=== PATIENT | female | born 1955 | race Caucasian/White ===

== ENCOUNTER → 2019-05-04 | Outpatient (CLI) | payer MEDICAID, SELFPAY ==
--- NOTE | 2019-05-04 16:01 | EKG12_ITS ---
Test Reason : PRE-OP Blood Pressure : / mmHG Vent. Rate : 082 BPM Atrial Rate : 082 BPM P-R Int : 160 ms QRS Dur : 106 ms QT Int : 380 ms P-R-T Axes : 027 -81 027 degrees QTc Int : 443 ms Normal sinus rhythm Pulmonary disease pattern Left anterior fascicular block Abnormal ECG Confirmed by KAYLA CLAY ([id number]), purchase request editor KENNY PHILLIPS ([id number]) on 05/07/2019 6:09:07 AM Referred By: Jake Larson Confirmed By:KAYLA CLAY
[2019-05-04 17:05] LABS: Hematocrit 43.9 % (37-47); Hemoglobin 14.7 g/dl (12.0-15.0); Mean Corp Hgb Conc 33.5 g/gl (32-36); Mean Corpuscular Hgb 29.5 pg (27.0-32.0); Mean Platelet Vol. 10.4 fl (6.2-12.0); Platelet Count 245 K/mm3 (150-450); RBC Distribution Width SD 44.8 fl (35.1-43.9); Red Blood Count 4.99 M/mm3 (4.2-5.4); White Blood Count 5.4 K/mm3 (4.4-11.0)
[2019-05-04 17:07] LABS: Scan Indicated on CBC? Y/N NO
[2019-05-04 17:44] LABS: Anion Gap 9 (5-15); BUN 9 mg/dL (7-18); BUN/Creat Ratio 12.8 RATIO (10-20); Calcium,Total 9.9 mg/dL (8.5-10.1); Chloride 103 mmol/L (98-107); EST Glomerular Filtration Rate 90 mL/min (>60); Est Glom Filt Rate - Afr Amer 108 mL/min (>60); Glucose 147 mg/dL (74-106); Potassium 4.2 mmol/L (3.5-5.1); Sodium Level 136 mmol/L (136-145)
== END | disposition home or self-care (01) ==
PROVIDERS: Family Provider Nurse Practitioner Family; PCP Nurse Practitioner Family; Referring Provider Otolaryngology; Visit Provider Otolaryngology
DX: Z01.818 Encounter for other preprocedural examination (principal)
CPT/HCPCS: 36415; 80048; 85027; 93005

== ENCOUNTER 2019-05-10 15:17 | Outpatient (CLI) | payer MEDICAID, SELFPAY ==
[2016-02-28 08:15] VITALS: BMI 34.5
--- NOTE | 2019-05-10 15:17 | LES_PTH ---
PATIENT: JUAN DIEGO TARIQ LOC: [facility] U#:[id number] AGE/SX: 63/F ROOM: RE05/10/[address]: Dr. 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 AM:christina 05/13/19 MICROSCOPIC DESCRIPTION Slides are reviewed. GROSS DESCRIPTION Received is one container labeled with the patient's name and not further designated. The specimen consists of a piece of agrawal-white soft tissue measuring 3 x 0.3 x 0.1 cm. The specimen is totally submitted in one cassette. / SJ:christina 05/12/19 TC:5 CPT: 84323
== END 2019-05-11 16:00 | disposition home or self-care (01) ==
LOC: LABSPEC 05-24 11:38
PROVIDERS: Family Provider Nurse Practitioner Family; PCP Nurse Practitioner Family; Referring Provider Otolaryngology; Visit Provider Otolaryngology
DX: D10.39 Benign neoplasm of other parts of mouth (principal)
CPT/HCPCS: 88305

== ENCOUNTER → 2020-05-31 08:37 | Outpatient (CLI) | payer OTHER, SELFPAY ==
--- NOTE | 2020-05-31 08:41 | US_ITS ---
STUDY: RENAL ULTRASOUND - COMPLETE REASON FOR EXAM: Female, 64 years old. HEMATURIA -- LOW BACK PAIN -- HX OF KIDNEY STONES TECHNIQUE: Ultrasound evaluation of the kidneys was performed with real-time and static alberto-scale imaging. COMPARISON: None. FINDINGS: RIGHT KIDNEY: Normal location of the right kidney, which is normal in size. The right kidney measures 12.1 cm. There is a normal cortex of the right kidney. The renal cortex measures 1.6 cm. There is no right renal mass or cyst. There are no right renal calculi. There is moderate hydronephrosis of the right kidney. DISTAL RIGHT URETER: There is dilatation of the proximal and mid ureter. There is non-visualization of the distal right ureter. There is no demonstrated right ureterovesical junction calculus. There is a visualized right ureteral jet. LEFT KIDNEY: Normal location of the left kidney, which is normal in size. The left kidney measures 11.8 cm. There is a normal cortex of the left kidney. The renal cortex measures 2.0 cm. There is 4.8 cm cyst. There are at least 3 echogenic foci consistent with calcifications measuring 0.2 and 0.3 cm. There is no left hydronephrosis. DISTAL LEFT URETER: There is non-visualization of the distal left ureter. There is no demonstrated left ureterovesical junction calculus. There is a visualized left ureteral jet. BLADDER: The distended urinary bladder has a volume of 9 ml. There is a normal wall thickness of the distended urinary bladder. There is no demonstrated mass within the urinary bladder. There are no demonstrated bladder calculi. US/Kidney and Bladder IMPRESSION: Right hydroureteronephrosis. Left renal stones. Electronically Signed: Jesus Rodriguez MD at 19:37 EDT , Service support ,
== END ==
LOC: US 08:39
PROVIDERS: PCP Nurse Practitioner Family
DX: R31.9 Hematuria, unspecified (principal)
CPT/HCPCS: 76770

== ENCOUNTER 2020-06-02 18:50 | Emergency (ER) | payer OTHER, SELFPAY ==
[2020-06-02 18:52] VITALS: BP 173/106; PULSE 96; RESP 15; TEMP 36.4; O2SAT 100; BMI 34.7
--- NOTE | 2020-06-02 19:54 | CT_ITS ---
STUDY: CT ABDOMEN AND PELVIS WITHOUT CONTRAST REASON FOR EXAM: Female, 64 years old. RT HTDRONEPHROSIS,RT FLANK PAIN WITH KIDNEY STONE -- HX:HLD,HTN,DIABETES,KIDNEY STONES RADIATION DOSAGE (If Supplied By Facility): CTDIvol = ( 20.17 ) mGy, DLP = ( 1018.02 ) mGycm TECHNIQUE: Transaxial images were obtained from the dome of the diaphragm to the symphysis pubis without oral contrast, and without intravenous contrast. Sagittal and coronal images were reconstructed. Individualized dose optimization techniques were used for this CT. COMPARISON: None. FINDINGS: There is minor interstitial thickening in the lower lobes.. The visualized portions of the heart are within normal limits. The liver is enlarged mildly fatty infiltrated without mass or bile duct dilatation.. There are multiple calcified gallstones without evidence for testicular edema.. Normal spleen. Normal pancreas. Normal bilateral adrenal glands. There is moderate to severe right hydroureter and hydronephrosis secondary to calculus in the distal ureter proximal to the ureterovesical junction measuring approximately 6 mm in size Left kidney is not obstructed. There is a large simple cyst in the medial cortex. Normal visualized stomach. Normal small intestine. Minor diverticular changes of the sigmoid colon without evidence for acute diverticulitis The appendix is visualized and appears normal. Mild atherosclerotic changes of the aorta without evidence for aneurysm. Normal inferior vena cava. Normal retroperitoneum. Normal urinary bladder. Normal abdominal wall. Normal osseous structures. CT/Abdomen/Pelvis without Cont IMPRESSION: Moderate to severe right hydroureteronephrosis secondary to calculus in the distal ureter measuring approximately 6 mm Cholelithiasis without evidence for acute cholecystitis. Electronically Signed: Flaquito Oakes MD at 21:02 EDT , Service support ,
[2020-06-02 20:00] VITALS: BP 164/110; PULSE 86; RESP 15; TEMP 36.4; O2SAT 98
[2020-06-02 20:13] LABS: Absolute Lymphocyte Count 1.84 X10^3/uL (0.83-4.51); Absolute Neutrophil Count 3.6 X10^3/uL (2.0-7.7); Basophil# 0.05 X10^3/uL; Basophil% 0.8 % (0-1); Eosinophil# 0.17 X10^3/uL; Eosinophils% 2.8 % (0-5); Hematocrit 43.8 % (37-47); Hemoglobin 14.3 g/dL (12.0-15.0); Lymphocyte # 1.84 X10^3/ul (4.0); Mean Corp Hgb Conc 32.6 g/dL (32-36); Mean Corpuscular Hgb 29.5 pg (27.0-32.0); Mean Corpuscular Volume 90.3 fL (81-99); Mean Platelet Vol. 9.9 fl (6.2-12.0); Monocyte# 0.45 X10^3/uL; Monocyte% 7.3 % (0-10); NRBC Flagged by Analyzer 0 % (0-5); Neutrophil # 3.57 X10^3/uL (2.7-7.7); Neutrophil % 58.3 % (47-70); Platelet Count 249 K/mm3 (150-450); RBC Distribution Width CV 13.6 % (11.6-14.6); RBC Distribution Width SD 44.5 fl (35.1-43.9); Red Blood Count 4.85 M/mm3 (4.2-5.4); White Blood Count 6.1 K/mm3 (4.4-11.0)
[2020-06-02 20:19] LABS: Bacteria 0 SEEN /hpf (None Seen); Mucous, Urine 0 SEEN /hpf (<or=2+)
[2020-06-02 20:22] LABS: Color, Urine Yellow (Yellow); Glucose, Dipstick 1000 mg/dl (Normal); Ketone-Dipstick 5 mg/dl (Negative); Leukocyte Esterase-Dipstick 25 /ul (Negative); Nitrite-Dipstick Negative (Negative); Occult Blood-Urine 50 /ul (Negative); Protein-Dipstick 30 mg/dl (Negative); Urine Bilirubin Dipstick Negative (Negative); Urine Clarity Sl. Cloudy (Clear); Urine Urobilinogen Normal (Normal)
[2020-06-02 20:32] LABS: Anion Gap 7 (5-15); BUN 11 mg/dL (7-18); BUN/Creat Ratio 12.9 RATIO (10-20); Calcium,Total 9.3 mg/dL (8.5-10.1); Chloride 105 mmol/L (98-107); Creatinine, Serum 0.86 mg/dL (0.55-1.02); EST Glomerular Filtration Rate 71 mL/min (>60); Est Glom Filt Rate - Afr Amer 86 mL/min (>60); Estimated Creatinine Clearance 61.87 ml/min; Glucose 175 mg/dL (74-106); Potassium 3.7 mmol/L (3.5-5.1); Sodium Level 138 mmol/L (136-145)
[2020-06-02 21:01] LABS: Red Blood Cells-Urine 5-10 SEEN /hpf (0-5); White Blood Cells 5-10 SEEN /hpf (0-5)
[2020-06-02 21:02] LABS: Squamous Epithelial Cells - UA 5-10 SEEN /hpf (5-10)
--- NOTE | 2020-06-02 21:57 | ED.VIS.GEN ---
History of Present Illness Chief Complaint: Complaint Informant: Patient Narrative: Patient is a 64-year-old female who presents to the emergency department after abnormal outpatient ultrasound. She was told that she has hydronephrosis of her kidney. He states that this past Friday she did have right-sided flank pain that radiated into her abdomen. This did resolve this past Friday. That day she did have an outpatient ultrasound which showed the hydronephrosis. Her pain completely resolved that day and has not had any pain since. Her only current symptom is urinary frequency. Denies any hematuria or dysuria. She has not any fevers or chills. She does have a history of kidney stones in the past requiring intervention. She has not any chest pain or shortness of breath. No change in bowel habits including a diarrhea, constipation or blood in the stool. Past Medical History - Allergies and Home Meds Allergies/Adverse Reactions: Allergies No Known Allergies Allergy (Verified 06/02/20 18:55) Primary Care Physician: Flako Lassiter MD [STAFF PHYSICIAN] - As soon as possible Jenifer Oh NP-C [Primary Care Provider] - Prior records reviewed: Yes Past Medical History: - - Nephrolithiasis Surgical History: tonsillectomy, - - D&C, Lives: Spouse/ Significant Other Smoking Status: Former smoker Alcohol: None Drugs: None - Family History Maternal Family History: Reports: Heart Disease Paternal Family History: Reports: Cancer Review of Systems All systems negative except as indicated General: Denies: Chills, Fever, Sweats Eyes: Denies: Visual changes - bilaterally, Diplopia ENT: Denies: Rhinorrhea, Sore throat Cardiovascular: Denies: Chest pain, Palpitations Respiratory: Denies: Dyspnea, Cough, Dyspnea on exertion Gastrointestinal: Denies: Abdominal pain, Nausea, Vomiting, Diarrhea, Melena, Hematochezia Genitourinary: Reports: Frequency. Denies: Dysuria, Hematuria Musculoskeletal: Denies: Back pain, Extremity Pain Skin: Denies: Rash, Wounds Neurological: Denies: Headache, Weakness, Numbness Physical Exam Vital Signs/Narrative: Vital Signs Temp Pulse Resp BP Pulse Ox 06/02/20 20:00 97.6 F L 86 15 164/110 H 98 06/02/20 18:52 97.6 F L 96 15 173/106 H 100 Inital Vital Signs reviewed: Yes General: Well nourished, Well developed, No Acute Distress Head: Normocephalic, Atraumatic Eyes: Perrl, EOMI ENT: Moist mucous membranes, No rhinorrhea Neck: Supple, Nontender Cardiovascular: Regular rate, Regular rhythm, No murmurs Respiratory: No distress, CTA bilaterally, Chest nontender Abdomen: Soft, Nontender, Nondistended, Normal bowel sounds Back: Nontender, Normal Inspection. Negative for: CVA tenderness Extremities: Nontender, No edema Skin: Normal color, No rash Neurological: Alert, Oriented x3, Cranial nerves II-XII grossly intact, Normal Strength, Normal Sensation Psychological: Normal affect, Normal Mood Diagnostic/Tx/Re-eval - Medical Decision Making Patient presents the [facility] department for hydronephrosis seen on outpatient ultrasound. She did have flank pain which was initially started with a work-up for this. This pain did resolve 3 days ago. She is completely asymptomatic at this time. Upon arrival to the [facility] department vital signs within normal limits. Physical exam is completely benign. Basic lab work obtained which showed her creatinine to be within normal limits. Urinalysis did not show any evidence of infection. CT scan did show a 6 mm obstructing ureteral stone. Since the patient is having no pain and labs do not have any significant abnormality I do feel she is able to go home with urology follow-up. She does need close follow-up so I made a social media marketing analyst consult to help schedule this. She understands if she develops any other symptoms she is to return to the [facility] department immediately. ED Disposition - Plan for ED Patient: Disposition: Home or Assisted Living Diagnosis: Ureterolithiasis, Hydronephrosis Instructions: ED Kidney Stone Undescended No Symptoms Referrals: Jenifer Oh NP-C [Primary Care Provider] - Flako Lassiter MD [STAFF PHYSICIAN] - As soon as possible
[2020-06-02 22:11] VITALS: BP 133/73; PULSE 77; RESP 18; O2SAT 95
== END 2020-06-02 22:11 | disposition home or self-care (01) ==
PROVIDERS: Emergency Provider Emergency Medicine; PCP Nurse Practitioner Family
DX: N13.2 Hydronephrosis with renal and ureteral calculous obstruction (principal); R35.0 Frequency of micturition; Z87.442 Personal history of urinary calculi; Z87.891 Personal history of nicotine dependence; Z79.899 Other long term (current) drug therapy
CPT/HCPCS: 74176; 80048; 81001; 85025; 99282; A4216

== ENCOUNTER → 2020-09-04 11:08 | Outpatient (CLI) | payer OTHER, SELFPAY ==
--- NOTE | 2020-09-04 11:10 | US_ITS ---
STUDY: SUPERFICIAL ULTRASOUND - LEFT THIGH LUMP. REASON FOR EXAM: Female, 64 years old. PALPABLE LUMP ON LT THIGH TECHNIQUE: A superficial ultrasound was performed with real-time and static stearns-scale imaging. COMPARISON: None. FINDINGS: Heterogeneously hyperechoic mass in the left anterior thigh measuring 2.3 x 2.6 x 0.8 cm. US/Ext Non Vasc Limited/Soft Tiss IMPRESSION: Heterogeneously hyperechoic mass in the left anterior thigh measuring 2.3 x 2.6 x 0.8 cm. RECOMMENDATION: MRI of the left thigh with and without contrast for further evaluation. Electronically Signed: Kalyan Soriano MD at 13:41 EDT , Service support ,
== END ==
LOC: US 11:08
DX: R22.42 Localized swelling, mass and lump, left lower limb (principal)
CPT/HCPCS: 76882

== ENCOUNTER → 2020-09-21 11:17 | Outpatient (CLI) | payer OTHER, SELFPAY ==
--- NOTE | 2020-09-21 11:28 | MRI_ITS ---
STUDY: MRI LOWER EXTREMITY LEFT THIGH WITH AND WITHOUT CONTRAST REASON FOR EXAM: Painful soft tissue mass at the proximal anterior left thigh for 3 months. TECHNIQUE: Standardized fat and water weighted pulse sequences were obtained in all 3 orthogonal planes, post contrast administration. IV 20ml Dotarem was administered for the contrast portion of the examination. COMPARISON: Ultrasound images 09/04/2020. FINDINGS: There is prominence of the subcutaneous fat at the anterior aspect of the proximal thigh between the skin markers (T1 sagittal images 23, 24) suggestive of a nonencapsulated superficial lipoma. There is mild edema in the lipoma (inversion recovery sagittal image 24; T2 axial images 13, 14) with mild contrast enhancement of the edema (postcontrast T1 sagittal images 24, 25). Normal visualized quadriceps, adductor and hamstring muscles. Normal visualized femur. MRI/Lower Ext No Joint W/WO Cont IMPRESSION: Prominence of the subcutaneous fat corresponding to the skin markers suggestive of a nonencapsulated superficial lipoma with mild edema in the lipoma. Electronically Signed: Rosas Muse MD at 13:29 EDT Tel , Service support ,
[2020-09-21 11:56] LABS: CREATININE FINGERSTICK 0.6 mg/dL (0.55-1.02); EGFR FINGERSTICK > 60.0000 mL/min (>60)
== END ==
LOC: MRI 11:18
DX: R22.42 Localized swelling, mass and lump, left lower limb (principal)
CPT/HCPCS: 73720; A9575

== ENCOUNTER 2020-10-04 09:26 | Day surgery (SDC) | payer MEDICARE, SELFPAY ==
[2020-09-27 09:01] VITALS: BMI 35.5
[2020-10-04] VITALS (10 sets, daily range): BP systolic 105–157; BP diastolic 60–87; PULSE 69–86; RESP 16–18; TEMP 36.2–36.4; O2SAT 91–98; BMI 35.8
--- NOTE | 2020-10-04 05:14 | HP_ITS ---
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 Is patient in pain?: Yes (Left thigh) Pain scale (1-10): 9 Allergies No Known Allergies Allergy (Verified 09/27/20 09:02) Medications Cholecalciferol (VIT D3) [Vitamin D3] 1,000 unit PO DAILY 02/26/16 [History Confirmed 09/27/20] Lisinopril [Zestril] 40 mg PO DAILY 02/26/16 [History Confirmed 09/27/20] metFORMIN HCl [Glucophage] 1,000 mg PO BID 02/26/16 [History Confirmed 09/27/20] cycloBENZAPRine HCl [Flexeril] 5 mg PO TID PRN PRN #1 tab 02/29/16 [Rx Confirmed 09/27/20] escitalopram oxalate 20 mg tablet 20 mg PO DAILY tab 09/27/20 [History Confirmed 09/27/20] gabapentin 300 mg capsule 300 mg PO DAILY cap 09/27/20 [History Confirmed 09/27/20] glimepiride 2 mg tablet 2 mg PO ONCE tab 09/27/20 [History Confirmed 09/27/20] levothyroxine 150 mcg tablet 150 mcg PO DAILY tab 09/27/20 [History Confirmed 09/27/20] FORMERLY [facility], [facility]1983 Medical History Diarrhea (Acute) Anxiety (Acute) Depression (Acute) Numbness and tingling (Acute) Rheumatoid arthritis (Acute) Arthritis (Acute) Diabetes (Acute) Thyroid disease (Acute) Fatigue (Acute) Suprapubic pain (Acute) Bilateral lower back pain (Acute) Hyperlipemia (Chronic) HTN (hypertension) (Chronic) Type 2 diabetes mellitus (Chronic) Surgical History Hx of dilation and curettage (Acute) History of throat surgery (Acute) Hx of tonsillectomy (Acute) History of (Acute) Family History Daughter Asthma Social History (Updated 09/27/20 @ 11:[address] Jose Alfredo Nolasco MD) Smoking Status: Former smoker second hand exposure: No alcohol intake: current alcohol intake frequency: holidays/special occasions only substance use type: does not use caffeine: Yes what type of physical activity do you participate in: none frequency: does not exercise HPI HPI HPI: JUAN DIEGO TARIQ, is a 64 F who presents to the office today for HPI HPI Surgical H&P: Yes HPI: JUAN DIEGO TARIQ, is a 64 F who presents to the office today for Mass of the left thigh. The patient reports that this mass has been bothering her for at least 3 months and is getting worse. She also has a mass under the skin in the left abdominal sidewall. Patient reports sometimes the pain radiates down her leg. She says it hurts to bend over. ROS General General: Yes fatigue HEENT HEENT: No difficulty swallowing, eye injury, eye surgery, swollen glands or hoarseness Endo Endocrine: Yes thyroid disease and diabetes mellitus; no thyroid cancer, Hair loss, heat intolerance or cold intolerance Skin Skin: No rash or changing moles Breast Breast: No left breast lump, right breast lump, nipple discharge, breast pain, abnormal mammogram, abnormal US or breast enlargement Musc Musculoskeletal: Yes back problems, arthritis and rheumatoid arthritis; no gout or joint pain Cardio Cardiovascular: Yes high blood pressure; no murmur, pacemaker, heart disease, atrial fibrillation, heart attack, heart stent, palpitations, shortness of breat with exertion or chest pain Psych Psychiatric: Yes depression and anxiety; no hearing voices Resp Respiratory: No shortness of breath, No sleep apnea, No cough, No COPD, No asthma, No emphysema, No wheezing Gastro Gastrointestinal: No abdominal pain, No nausea or vomiting, Yes diarrhea, No constipation, No blood in stool, No acid reflux, No hemorrhoids, No ulcers, Yes gallbladder problem, No black,tarry stools Des Hematologic: No blood thinners, No blood disorders, No bleeding, No anemia, No blood clots Neuro Neurologic: Yes numbness, Yes tingling Exam Const General: cooperative Orientation: alert, oriented x3 Chest Breast Palpation: No nipple discharge Resp Effort & Inspection: normal respiratory effort Auscultation: clear to auscultation bilaterally Cardio Rate: regular rate Rhythm: regular rhythm Heart Sounds: no murmurs GI Inspection: non-distended Palpation: soft, nontender Musc Other: The patient has a subcutaneous Mass in the left proximal thigh which is soft and mobile. She also has a soft tissue mass in the left abdominal sidewall Assessment & Plan Problems 1. Lipoma of left thigh D17.24 2. Lipoma of abdominal wall D17.1 Plan The patient had MRI and CT scan was suggestive the leg mass is a lipoma. The patient also has a lipoma on her left abdominal sidewall. I explained the risks of removing them such as bleeding and infection the patient would like both of them removed. I advised her to have them removed in the operating room as they are fairly deep and somewhat large. Patient understands and will schedule excision in the operating room. We discussed the current risks associated with COVID-19. While it is understood that there is a community spread of COVID-19, the risk of carter COVID-19 while at [facility] ([facility]) is very low; however, the risk cannot be completely mitigated because of the community spread of the disease. We discussed in detail the risk of exposure to and/or potential harm posed by the COVID-19 virus with having a surgery/procedure at this time versus the risk of delaying the surgery/procedure. It is not possible to know either the risk of delaying the surgery or procedure or chance of getting an infection with perfect accuracy, but a joint decision was made to proceed at this time with the scheduled surgery/procedure as indicated on the consent form. Patient was notified that we will need to comply with any screening or testing [facility] wishes to perform or that surgery may be delayed for any positive results. Jose Alfredo Noalsco MD Pager: [facility] [address] [place] [address], [address] [place] [address] Office: Coding Level of Care Code Off vis,new,level 3 Diagnoses Lipoma of left thigh D17.24 Lipoma of abdominal wall D17.1 I have re-examined the patient. There are no clinical changes since date of exam.
[2020-10-04] MEDS: Lactated Ringers 1,000 ML 100 ML IV (10:07)
[2020-10-04 10:11] LABS: Bedside Glucose 213 mg/dL (70-110)
[2020-10-04] MEDS: Bupivacaine Mpf 0.5% 30 ML VIAL (10:17)
[2020-10-04] MEDS: Cefazolin 2 GM in 0.9% Normal Saline 100 ML IV (11:00)
--- NOTE | 2020-10-04 11:00 | LIP_PTH ---
PATIENT: JUAN DIEGO TARIQ [place] [facility] [id number] AGE/SX: 64/F ROOM: RE10/04/[address]: Dr. Jose Alfredo Nolasco MD : 1955 BED: DIS: 10/04/2020 SPEC #: [id number] RECD: 10/04/20 11:39 STATUS: SAMUEL LILIANA #: [id number] RENEE: 10/04/20 11:[address]: Jose Alfredo Nolasco DEPT: SURGICAL PATHOLOGY RECD BY: Suleiman Saunders ENTERED: 10/04/20 11:47 SP TYPE: LIPOMA OTHR DR: Jenifer Oh, F[facility] WINDER-[facility] Tissues: A - Soft tissues of abdomen B - Soft tissues, NOS Procedures: Surgery Specimen Level III HEADER OPERATION: Thigh and abdominal wall lipoma excision PRE-OP DIAGNOSIS: Lipoma of left thigh and abdominal wall TISSUE SUBMITTED: A - Left abdominal wall lipoma, B - Left thigh lipoma MICROSCOPIC DIAGNOSIS A. Soft tissue mass, left abdominal wall, excision: Mature adipose tissue consistent with angiolipoma. B. Soft tissue mass, left thigh, excision: Mature adipose tissue consistent with angiolipoma. AM:christina 10/05/20 MICROSCOPIC DESCRIPTION Slides are reviewed. GROSS DESCRIPTION A - Received in fixative is one container labeled with the patient's name and designated left abdominal wall lipoma. The specimen consists of multiple irregular fragments of agrawal-yellow adipose tissue that in aggregate measure 3 x 2.5 x 0.3 cm. The entire specimen is submitted in one cassette. B - Received in fixative is one container labeled with the patient's name and designated left thigh lipoma. The specimen consists of an irregular piece of yellow adipose tissue measuring 4 x 1.5 x 1 cm. The external surface is inked. Sections reveal yellow adipose cut surfaces without areas of hemorrhage, necrosis or cystic degeneration. The entire specimen is submitted in two cassettes. / SJ:christina 10/04/20 TC:1 CPT: 30857 x2
--- NOTE | 2020-10-04 11:32 | OP.PCM_ITS ---
Problem List (1) Lipoma of left thigh Status: Acute (2) Lipoma of abdominal wall Status: Acute Report of Operation Date of Procedure: 10/04/20 Pre-Operative Diagnosis: 1. Left abdominal wall lipoma. 2. Left thigh lipoma Post-Operative Diagnosis: Same Surgery/Procedure Performed:: 1. Excision of left abdominal wall lipoma. 2. Excision of left thigh lipoma Specimen's removed: 1. Left abdominal wall lipoma. 2. Left thigh lipoma Description of Procedure: Patient was brought back to the operating room and MAC anesthesia was induced. The abdomen and left thigh were prepped in the usual sterile fashion. The area overlying the left abdominal wall lipoma was anesthetized and incision was made. Hemostasis was obtained using electrocautery and hemostats were used to bluntly dissect the lipoma free. The cavity was irrigated and the incision was closed with interrupted 3-0 Vicryl sutures. The lipoma measured approximately 1.5 cm. Next the left thigh was anesthetized in the same fashion and an incision was made. Hemostats were used to bluntly dissect the lipoma free and it was delivered. It was approximately 3 cm. The cavity was irrigated and hemostasis was obtained using electrocautery. The incision was closed using interrupted 3- 0 Vicryl sutures. Both incisions were closed with Steri-Strips and bandages and the patient was taken to PACU in stable condition. - Admit VTE Documentation VTE Mechan Device Prophylaxis: SCD's
--- NOTE | 2020-10-04 11:38 | PCM.DC ---
- Discharge Diagnoses Current Active Problems: Current Active and Chronic Problems (Last Reviewed 09/27/20 @ 09:08 by Grace Bryson) Lipoma of left thigh (Acute) Lipoma of abdominal wall (Acute) You will use the following diet at home:: Regular Your food should be the consistency of: Regular Your liquids should be the consistency of: Regular/Thin Discharge Activity: Return to Normal Activity, May Shower Call your doctor if your incision/area has: Continuous Slow Oozing, Sudden Increased Bleeding, Increased Pain/ Swelling, Increased Redness, Foul Smelling Discharge, Swelling at the incision site Call your doctor if you observe: Fever of 101 or Higher Remove Dressing in (days):: 2 - Remove clear bandage in 2 days, remove steri strips in 7-10 days Cleanse incision/area with: Soap & Water Allergies/Adverse Reactions: Allergies No Known Allergies Allergy (Verified 09/28/20 13:10) Medications to take at Discharge Cholecalciferol (VIT D3) [Vitamin D3] 1,000 unit PO DAILY 02/26/16 Lisinopril [Zestril] 20 mg PO BID 02/26/16 metFORMIN HCl [Glucophage] 1,000 mg PO BID 02/26/16 cycloBENZAPRine HCl [Flexeril] 5 mg PO TID PRN PRN #1 tab 02/29/16 escitalopram oxalate 20 mg tablet 20 mg PO DAILY tab 09/27/20 gabapentin 300 mg capsule 300 mg PO TID cap 09/27/20 glimepiride 2 mg tablet 2 mg PO BID tab 09/27/20 levothyroxine 150 mcg tablet 150 mcg PO DAILY tab 09/27/20 Atorvastatin Calcium [Lipitor] 20 mg PO QHS 09/28/20 Oxycodone HCl/Acetaminophen [Percocet 5-325 mg Tablet] 1 tab PO Q6H PRN PRN 3 Days #15 tablet 10/04/20 The following prescriptions were given: Oxycodone HCl/Acetaminophen [Percocet 5-325 mg Tablet] 1 tab PO Q6H PRN PRN 3 Days #15 tablet PRN Reason: Pain Score 4-10/10 Transmission Status: Sent to [facility] Test Results: Test results from this visit will be discussed in further detail at your follow-up appointment, if applicable. Please Follow Up With: Jose Alfredo Nolasco MD When: Please call to schedule 2 week follow up appointment. [phone]
== END 2020-10-04 13:17 | disposition home or self-care (01) ==
LOC: SDC 09:28 → AC 09:29
PROVIDERS: Referring Provider Surgery; Visit Provider Surgery
PROC: (CPT 22902; principal; 2020-10-04 10:45)
DX: D17.1 Benign lipomatous neoplasm of skin and subcutaneous tissue of trunk (principal); D17.24 Benign lipomatous neoplasm of skin and subcutaneous tissue of left leg; Z20.828 Contact with and (suspected) exposure to other viral communicable diseases; E11.9 Type 2 diabetes mellitus without complications; I10 Essential (primary) hypertension; E78.5 Hyperlipidemia, unspecified; M06.9 Rheumatoid arthritis, unspecified; K58.0 Irritable bowel syndrome with diarrhea; F32.9 Major depressive disorder, single episode, unspecified; F41.9 Anxiety disorder, unspecified; Z79.84 Long term (current) use of oral hypoglycemic drugs; Z79.899 Other long term (current) drug therapy; Z78.0 Asymptomatic menopausal state; Z87.891 Personal history of nicotine dependence
CPT/HCPCS: 00400; 22902; 27327; 82962; 87426; 88304; C9803; J7120; J2405

== ENCOUNTER 2021-01-14 12:56 | Emergency (ER) | payer MEDICARE, SELFPAY ==
[2020-10-04 09:52] VITALS: BMI 35.8
[2021-01-14 12:57] VITALS: BP 162/85; PULSE 102; RESP 18; TEMP 35.8; O2SAT 97; BMI 35.5
--- NOTE | 2021-01-14 13:06 | RAD_ITS ---
STUDY: X-RAY - PELVIS REASON FOR EXAM: Female, 65 years old. FELL 6 WEEKS AGO, INCREASING LEFT HIP PAIN TECHNIQUE: One view of the pelvis was obtained. COMPARISON: None. FINDINGS: There is a non-specific bowel gas pattern. Normal visualized soft tissue structures. There is narrowing with cortical sclerosis and osteophyte formation of the sacroiliac joint consistent with degenerative osteoarthritic changes. Normal visualized bilateral superior and inferior pubic rami. Normal pubic symphysis. Normal ischial tuberosities. Normal visualized right femoral head. Normal right acetabulum. There is mild articular joint space narrowing of the right hip. Normal visualized left femoral head. There is osteoarthritic spur formation of the left acetabular rim. There is mild articular joint space narrowing of the left hip. RAD/Pelvis 1 or 2 Views IMPRESSION: Degenerative change. No visualized acute fracture. Electronically Signed: Tere Saunders MD at 14:13 EST Tel , Service support ,
--- NOTE | 2021-01-14 13:06 | RAD_ITS ---
STUDY: X-RAY - LUMBAR SPINE REASON FOR EXAM: Female, 65 years old. FELL 6 WEEKS AGO, INCREASING PAIN TECHNIQUE: 3 view(s) of the lumbar spine were obtained. COMPARISON: None FINDINGS: Normal lumbar lordosis. There is no substantial scoliosis. There is a normal alignment of the vertebrae. There is mild multilevel spondylosis. There is disc space narrowing L4-L5. There is no visualized acute loss of height or alignment. There is mild dextroscoliosis. There is partially visualized degenerative change in the left hip joint. There is atherosclerotic calcification of the abdominal aorta without a demonstrated aneurysm. RAD/Lumbar Spine 2 or 3 Views IMPRESSION: Degenerative change. No visualized acute fracture. Electronically Signed: Tere Saunders MD at 14:11 EST Tel , Service support ,
--- NOTE | 2021-01-14 13:20 | ED.VIS.GEN ---
History of Present Illness Chief Complaint: Lower Extremity Injury Informant: Patient Onset: Weeks - 6 weeks Context: Sudden Onset Timing: Continuous Quality: Pain Location: Left anterior thigh, greater trochanteric region and low back Current Severity: Mild Maximum Severity: Severe Worsened by: Movement, walking, bending Relieved by: Nothing Associated Symptoms: Knee buckling going up or down steps Narrative: Patient is a 65-year-old woman who presents with left hip pain. She thinks she has something wrong with her hip. This has been present for the past 6 weeks. She reports buckling of her knees going up or down steps. She denies bowel bladder dysfunction. She has saddle paresthesia or anesthesia. She complains of left low pain that radiates to the left greater trochanteric area and over the anterior thigh in an L3-4 dermatomal pattern. Movement increases the pain. She denies fever or chills. She is not on any immunosuppressive meds. She denies dysuria, frequency, urgency or hematuria. She denies rash. Prior similar symptoms: No Recent Illness/Hospitalization: No - Past Medical History (1) Anxiety Status: Acute (2) Arthritis Status: Acute (3) Bilateral lower back pain Status: Acute (4) Depression Status: Acute (5) Diabetes Status: Acute (6) Fatigue Status: Acute (7) Rheumatoid arthritis Status: Acute (8) Thyroid disease Status: Acute (9) HTN (hypertension) Status: Chronic (10) Hyperlipemia Status: Chronic Past Medical History - Allergies and Home Meds Allergies/Adverse Reactions: Allergies No Known Allergies Allergy (Verified 01/14/21 12:57) Primary Care Physician: [facility] Columba Tovar [Primary Care Provider] - Prior records reviewed: Yes Surgical History: tonsillectomy, - - D&C, Lives: Alone Smoking Status: Unknown if ever smoked Alcohol: None Drugs: None - Family History Maternal Family History: Family History (Last Reviewed 09/27/20 @ 09:08 by Grace Bryson) Daughter Asthma Family History: Reports: Heart Disease Paternal Family History: Family History (Last Reviewed 09/27/20 @ 09:08 by Grace Bryson) Daughter Asthma Family History: Reports: Cancer Review of Systems General: Denies: Chills, Fever, Malaise, Subjective, Sweats, Weight loss Eyes: Denies: Visual changes - bilaterally, Diplopia Cardiovascular: Denies: Chest pain, Palpitations Respiratory: Denies: Dyspnea, Cough, Dyspnea on exertion Gastrointestinal: Denies: Abdominal pain, Nausea, Vomiting, Diarrhea, Melena, Hematochezia Genitourinary: Denies: Dysuria, Hematuria, Frequency Musculoskeletal: Reports: Back pain. Denies: Myalgias, Arthralgias, Neck pain, Swelling, Extremity Pain Skin: Denies: Rash, Abscess, Abrasions, Wounds, -, - Neurological: Reports: Weakness - Left lower extremity. Denies: Parasthesia, Numbness Psych: Reports: Depression, Anxiety Endocrine: Denies: Polyuria, Polydipsia Hematologic: Denies: Easy bruising, Easy bleeding Physical Exam Vital Signs/Narrative: Vital Signs Temp Pulse Resp BP Pulse Ox 01/14/21 12:57 96.5 F L 102 H 18 162/85 H 97 Inital Vital Signs reviewed: Yes General: Well nourished, Well developed, Obese, No Acute Distress Head: Normocephalic, Atraumatic Eyes: Perrl, EOMI ENT: Moist mucous membranes, No rhinorrhea Neck: Supple, Nontender Cardiovascular: Regular rate, Regular rhythm, No murmurs Respiratory: No distress, CTA bilaterally, Chest nontender Abdomen: Soft, Nontender, Nondistended, Normal bowel sounds Back: Nontender, Normal Inspection, - - Straight leg test. Positive femoral stretch test on the left. Patella reflexes slightly diminished on the left compared to the right. Ankle is symmetric and 2-3+. There is no pain to percussion over the lumbar sacral region. Extremities: Nontender, No edema Skin: Normal color, No rash. Negative for: Cyanosis, Diaphoresis, Jaundice, No Trauma Neurological: Alert, Oriented x3, Cranial nerves II-XII grossly intact, Normal Sensation. Negative for: Normal Strength - She has weakness with 1 legged squat on the left side. Able to walk on heels and toes., Normal Gait Psychological: Normal affect, Normal Mood Diagnostic/Tx/Re-eval Chest X-Ray - ED: Read by ED Physician - Single view of the pelvis is negative for fracture, dislocation or degenerative changes., - - Three-view x-ray of the LS-spine reveals minimal calcification aorta. Aorta is normal size. There is no abnormality of the lumbar or sacral vertebral bony structures. There is no evidence of spondylolisthesis or spondylolysis. There is no significant degenerative changes noted. Disc base are eq 01/14/21 13:06 Lumbar Spine 2 or 3 Views [RAD] Stat Pelvis 1 or 2 Views [RAD] Stat - Medical Decision Making Suspect patient has an L3-L4 disc protrusion. Since she is never had x-rays obtain x-ray of the back and hip. She was medicated with IV opiate analgesia. Other causes are degenerative disc disease. Doubt discitis or osteomyelitis. Also doubt epidural abscess. Patient was reassessed at 1440. She reports marked improvement. Plan is discharge to home with prescription for Medrol Dosepak and opiate analgesia. She was instructed to follow-up with spine surgeon. She was given name of spine surgeon in [place]. ED Disposition - Plan for ED Patient: Disposition: Home or Assisted Living Diagnosis: Lumbosacral radiculopathy at L3 Instructions: ED Back Pain (Acute or Chronic) Prescriptions: MethylPREDNISolone DosePak [Medrol DosePak] 4 mg PO UD #1 box Prescription Printed Oxycodone HCl/Acetaminophen [Percocet 5/325] 1 tab PO Q6H PRN PRN 5 Days #20 tab PRN Reason: Radicular back pain Prescription Printed [facility] - Eran Rodrigues DO [STAFF PHYSICIAN] - 3-5 Days Additional Instructions: The Medrol Dosepak will make your blood sugars higher. If you are unable to urinate, lose bowel control or your left knee gives out going up or down steps return to the emergency department urgently.
[2021-01-14] MEDS: morphine 8 MG/ML Syringe IV (13:32)
[2021-01-14 15:03] VITALS: BP 137/67; PULSE 75; RESP 18; O2SAT 95
== END 2021-01-14 15:03 | disposition home or self-care (01) ==
PROVIDERS: Emergency Provider Emergency Medicine
DX: M54.17 Radiculopathy, lumbosacral region (principal); M54.5 Low back pain; E11.9 Type 2 diabetes mellitus without complications; I10 Essential (primary) hypertension; E78.5 Hyperlipidemia, unspecified; M06.9 Rheumatoid arthritis, unspecified; E07.9 Disorder of thyroid, unspecified; F32.9 Major depressive disorder, single episode, unspecified; F41.9 Anxiety disorder, unspecified; E66.9 Obesity, unspecified; Z79.84 Long term (current) use of oral hypoglycemic drugs; Z79.52 Long term (current) use of systemic steroids; Z79.899 Other long term (current) drug therapy
CPT/HCPCS: 72100; 72170; 96372; 99284; A4216

== ENCOUNTER → 2021-03-26 08:33 | Outpatient (CLI) | payer MEDICARE, SELFPAY ==
[2021-01-24 13:51] VITALS: BMI 35.8
[2021-03-26 10:16] LABS: Absolute Lymphocyte Count 1.94 X10^3/uL (0.83-4.51); Absolute Neutrophil Count 2.6 X10^3/uL (2.0-7.7); Basophil# 0.07 X10^3/uL; Basophil% 1.3 % (0-1); Eosinophil# 0.16 X10^3/uL; Eosinophils% 3.1 % (0-5); Hematocrit 43.1 % (37-47); Lymphocyte # 1.94 X10^3/ul (0.83-4.51); Lymphocyte % 37.4 % (19-41); Mean Corp Hgb Conc 32.5 g/dL (32-36); Mean Corpuscular Hgb 28.7 pg (27.0-32.0); Mean Corpuscular Volume 88.5 fL (81-99); Mean Platelet Vol. 10.5 fl (6.2-12.0); Monocyte# 0.39 X10^3/uL; Monocyte% 7.5 % (0-10); NRBC Flagged by Analyzer 0 % (0-5); Neutrophil # 2.61 X10^3/uL (2.7-7.7); Neutrophil % 50.3 % (47-70); Platelet Count 269 K/mm3 (150-450); RBC Distribution Width CV 13.9 % (11.6-14.6); RBC Distribution Width SD 44.9 fl (35.1-43.9); Red Blood Count 4.87 M/mm3 (4.2-5.4); White Blood Count 5.2 K/mm3 (4.4-11.0)
[2021-03-26 10:34] LABS: Hemoglobin A1c 6.5 % (3.8-5.6)
[2021-03-26 11:07] LABS: ALB/GLOB Ratio 1.1 RATIO (0.9-2.4); AST(SGOT) 38 U/L (15-37); Alanine Aminotransfer ALT/SGPT 58 U/L (13-56); Alkaline Phosphatase 82 U/L (45-117); Anion Gap 10 (5-15); BUN 13 mg/dL (7-18); BUN/Creat Ratio 18.2 RATIO (10-20); Calcium,Total 9.6 mg/dL (8.5-10.1); Chloride 106 mmol/L (98-107); Cholesterol 169 mg/dL (200); Creatinine, Serum 0.71 mg/dL (0.55-1.02); EST Glomerular Filtration Rate 87 mL/min (>60); Est Glom Filt Rate - Afr Amer 105 mL/min (>60); Globulin 3.7 g/dL (2.2-4.2); Glucose 110 mg/dL (74-106); High Density Lipoprotein 47 mg/dL; Potassium 3.1 mmol/L (3.5-5.1); Protein, Total 7.7 g/dL (6.4-8.2); Sodium Level 141 mmol/L (136-145); Thyroid Stim Hormone (TSH) 1.35 uIU/mL (0.358-3.74); Triglycerides 137 mg/dL; Very Low Density Lipoprotein 27 mg/dL (5-40)
[2021-03-28 17:12] LABS: Vitamin D 1,25-Dihydroxy 76.5 pg/mL (19.9-79.3)
== END ==
DX: E11.42 Type 2 diabetes mellitus with diabetic polyneuropathy (principal)
CPT/HCPCS: 36415; 80053; 80061; 82652; 83036; 84443; 85025

== ENCOUNTER → 2021-04-06 09:17 | Outpatient (CLI) | payer MEDICARE, SELFPAY ==
[2021-01-24 13:51] VITALS: BMI 35.8
== END ==
PROVIDERS: PCP Nurse Practitioner Adult Health; Referring Provider Nurse Practitioner Adult Health; Visit Provider Nurse Practitioner Adult Health
DX: E87.6 Hypokalemia (principal)
CPT/HCPCS: 36415; 84132

== ENCOUNTER 2021-05-22 14:00 | Outpatient (RCR) | payer MEDICARE, SELFPAY ==
[2021-01-24 13:51] VITALS: BMI 35.8
--- NOTE | 2021-04-03 14:42 | HP.PTEVAL_ITS ---
Patient's Visit Information JUAN DIEGO TARIQ is a 65 year old F referred to Physical Therapy by MILLY Handley with a diagnosis of Degenerative Disc Disease. Date of Evaluation: 04/02/21 Physical Therapist: Magen Lopez DPT - Visit Plan Frequency: 2x /Week Duration: 3 Weeks Plan: Pts. symptoms did not subside when doing flexion or extension based exercises, but this is something to try next session. The pt. will start aquatic therapy 2x a week for 3-4 weeks to see if her symptoms lessen. Goal is to have the patient progress her core strength, as well as general lower body strength, and increase her lumbar ROM. - Subjective Pt. is a 65 yo female who presents to the clinic with low back pain that has been occurring for 8 months and was referred from Dr. Radha Mclean. The pt. states that she has been having low back pain, as well as anterior thigh pain, but denies any N/T. Her pain is worse in the morning and is provoked by walking, sitting for long periods of time, lying on the L side and lying on her stomach, which causes pain while she sleeps. Pt. reports that occasionally her left knee dimitri while she walks. Pt. does have a past medical history of diabetes and neuropathy in the feet. The pt. states her pain was a 5/10 here at the clinic, but pain can increase up to a 8/10 when it is at its worst. She would like to get back to her every day chores such as vacuuming, putting sheets on the bed, and planting plants without pain. - Pain L Low back Pain Intensity (Out of 10): 5 Pain Intensity Range: 8 - Objective Posture: Rounded shoulders, forward head, excessive thoracic kyphosis, sits in a position to off load the L side of her body. MMT: Knee ext R 5/5, L 4/5, knee flexion B 4/5, hip ext B 3+/5 with pain, hip ABD B +3/5, DF/inversion B 5/5, eversion B 5/5, rectus abdominus too painful to assess, Transverse abdominus weak and could not palpate muscle contraction. ROM: Lumbar Flex WNL, Lumbar Ext moderate to severe loss of motion with pain, L rotation WNL with minimal pain, R rotation WNL with moderate pain, R side bending WNL, L side bending WNL with pain. Joint Assessment: Hypomobile from T6 to L1 region, TTP at L3-L5 and could not assess mobility. Palpation: TTP at L3-L5. Special Tests: L femoral nerve tension test caused burning sensation through anterior thigh. SLR and Slump test s were tested, but were inconclusive due to patients fear and reproduction of low back pain. + L Quadrant Test. Pt. presents with faulty posture, rounded shoulders and forward head. She presents with decreased lumbar extension due to pain, general LE muscle weakness, as well as pain to palpation at L3-L5. The pt. is experiencing pain that can range from a 5-8 on normal days while doing ADL's, sleeping, and walking. The pt. needs PT to address her pain, decrease her symptoms, increase her spine mobility, as well as increase her strength. - Goals Goal 1:: LTG: Pt. will be compliant and indpendent with their HEP. Goal Time Frame: 2-4 Weeks Goal 2:: LTG: Pt. will be able to tolerate vacuuming her house with pain less than a 2/10. Goal Time Frame: 2-4 Weeks Goal 3:: LTG: Pt. will be a 5/5 in knee extension strength, so she is can walk comfortably without worrying about her L knee giving out on her. Goal Time Frame: 2-4 Weeks Goal 4:: LTG: Pt. will increase her lumbar extension by 50% to tolerate walking for longer periods at a time without pain. Goal Time Frame: 2-4 Weeks - Rehabilitation Potential Physical Therapy Diagnosis: The pt. presents to the clinic with signs and symptoms of low back and anterior thigh pain consistent with a facet dysfunction and/or disc dysfunction between L3 and L5 vertebrae. The pt. is needing PT to a ddress her pain levels and increase her overall spine mobility and general muscle strength. Rehabilitation Potential: Good - Anticipated Interventions Patient/Client Instruction: Educate patient on: Condition, Plan of Care For the Purpose of:: To decrease pain, To increase ROM, To improve muscle performance and motor function, To improve ability to perform ADL's, To improve ability of physical actions for home/community/work/leisure, To improve tolerance to ADL's Therapeutic Exercise to Include: Strength training, Endurance training, Body mechanics, Postural training, In an aquatic setting, Active ROM, Dynamic Lumbar Stabilization, Cecily Exercises For the Purpose of:: To decrease pain, To increase ROM, To improve muscle performance and motor function, To improve ability to perform ADL's Thank you for the opportunity to evaluate your patient. For Medicare and Medicare HMO plans, please review the plan of care and approve it. It will need to be FAXED BACK to us at [phone] for Medicare purposes. For Medicare only, by signing this I certify the plan of care. Please let me know if there are questions or concerns regarding this plan of care. Physician Signature: Date:
== END 2021-05-22 19:00 | disposition home or self-care (01) ==
LOC: PT 14:00
PROVIDERS: Referring Provider Nurse Practitioner Adult Health; Visit Provider Nurse Practitioner Adult Health
DX: M51.36 Other intervertebral disc degeneration, lumbar region (principal)
CPT/HCPCS: 97113; 97161

== ENCOUNTER → 2021-07-11 10:37 | Outpatient (CLI) | payer MEDICARE, SELFPAY ==
[2021-01-24 13:51] VITALS: BMI 35.8
--- NOTE | 2021-07-11 10:38 | MRI_ITS ---
STUDY: MRI LUMBAR SPINE WITHOUT CONTRAST REASON FOR EXAM: Female, 65 years old. pain TECHNIQUE: Standardized fat and water weighted pulse sequences were obtained in the sagittal and axial planes. COMPARISON: X-ray 01/14/2021 FINDINGS: T12-L1: Normal endplates. Normal disc height, hydration and morphology. Normal bilateral facet joints. Normal central canal and bilateral lateral recesses. Normal bilateral intervertebral neural foramina. Normal lumbar lordosis. Mild dextroscoliosis centered at L3/L4. Normal conus medullaris that terminates at the L1/L2. L1-2: Normal endplates. Normal disc height, hydration and morphology. Normal bilateral facet joints. Normal central canal and bilateral lateral recesses. Normal bilateral intervertebral neural foramina. L2-3: Disc desiccation but no disc protrusion, spinal stenosis, neural foraminal stenosis. L3-4: Disc desiccation but no disc protrusion, spinal stenosis, or neural foraminal stenosis. L4-5: Mild broad disc protrusion produces mild spinal stenosis and mild bilateral neural foraminal stenosis. L5-S1: Normal endplates. Normal disc height, hydration and morphology. Normal bilateral facet joints. Normal central canal and bilateral lateral recesses. Normal bilateral intervertebral neural foramina. Normal visualized sacral ala. Normal visualized paraspinous soft tissue structures. MRI/Spine Lumbar (Routine) IMPRESSION: Mild degenerative disc disease at L4/L5 as described above. Electronically Signed: Caleb Wagner MD at 12:48 EDT Tel , Service support ,
== END ==
LOC: MRI 10:38
DX: M51.16 Intervertebral disc disorders with radiculopathy, lumbar region (principal)
CPT/HCPCS: 72148

== ENCOUNTER 2021-12-28 10:02 | Outpatient (CLI) | payer MEDICARE, SELFPAY ==
--- NOTE | 2021-12-28 10:03 | MRI_ITS ---
STUDY: MRI LEFT HIP REASON FOR EXAM: Pain/stiffness in left hip extending into thigh, symptoms for 2 years. TECHNIQUE: Standardized fat and water weighted pulse sequences were obtained in all 3 orthogonal planes. COMPARISON: Radiographs 11/28/2021 and MRI images 09/21/2020. FINDINGS: There is chondral thinning of the left hip (proton-density sagittal image 9). Normal acetabulum. There is a small tear of the left anterosuperior labrum (proton-density sagittal image 10). Normal femoral head. Normal femoral neck and intratrochanteric region. Normal gluteus minimus, medius and iliopsoas tendons and distal insertions. There is no trochanteric, iliopsoas or iliopectineal bursitis. Normal superior and inferior pubic rami. Normal pubic symphysis. Normal ischial tuberosity. There is low-grade partial tearing of the origin of the left hamstring tendons (inversion recovery axial images 28-30). Normal visualized iliac wing, sacroiliac joint, and sacral ala. There is a small volume of fluid in the endometrial cavity (inversion recovery coronal image 15). There is a cyst in the left kidney, not fully included in the [id number] (inversion recovery coronal images 13-15). MRI/Lower Ext Joint Only (Routine) IMPRESSION: Left hip arthrosis. Small tear of the left anterosuperior labrum. Low-grade partial tearing of the origin of the left hamstring tendons. Electronically Signed: Rosas Muse MD at 13:07 EST ,
== END 2021-12-28 23:59 | disposition short-term general hospital (02) ==
LOC: MRI 10:03
PROVIDERS: Visit Provider Orthopaedic Surgery
DX: M25.552 Pain in left hip (principal)
CPT/HCPCS: 73721

== ENCOUNTER → 2022-03-22 | Outpatient (CLI) | payer MEDICARE, SELFPAY | END | disposition home or self-care (01) | PROVIDERS: Visit Provider Nurse Practitioner Adult Health | DX: G47.00 Insomnia, unspecified (principal); G47.10 Hypersomnia, unspecified | CPT/HCPCS: 95810 ==

== ENCOUNTER → 2022-04-17 | Outpatient (CLI) | payer MEDICARE, SELFPAY ==
[2022-04-17] MEDS: Zolpidem Tartrate 5 MG Tablet PO (21:00)
== END | disposition home or self-care (01) ==
PROVIDERS: Referring Provider Nurse Practitioner Acute Care; Visit Provider Nurse Practitioner Acute Care
DX: G47.33 Obstructive sleep apnea (adult) (pediatric) (principal)
CPT/HCPCS: 95810

== ENCOUNTER → 2022-04-23 | Outpatient (CLI) | payer MEDICARE, SELFPAY ==
[2022-04-23 11:07] LABS: Absolute Lymphocyte Count 2.24 X10^3/uL (0.83-4.51); Basophil# 0.05 X10^3/uL; Basophil% 0.7 % (0-1); Eosinophil# 0.08 X10^3/uL; Eosinophils% 1.1 % (0-5); Hemoglobin 14.7 g/dL (12.0-15.0); Lymphocyte # 2.24 X10^3/ul (0.83-4.51); Lymphocyte % 32.1 % (19-41); Mean Corp Hgb Conc 33.4 g/dL (32-36); Mean Corpuscular Hgb 29.9 pg (27.0-32.0); Mean Corpuscular Volume 89.4 fL (81-99); Mean Platelet Vol. 10.2 fl (6.2-12.0); Monocyte# 0.53 X10^3/uL; Monocyte% 7.6 % (0-10); NRBC Flagged by Analyzer 0 % (0-5); Neutrophil # 4.04 X10^3/uL (2.7-7.7); Neutrophil % 58.1 % (47-70); Platelet Count 268 K/mm3 (150-450); RBC Distribution Width CV 13.7 % (11.6-14.6); RBC Distribution Width SD 44.4 fl (35.1-43.9); Red Blood Count 4.92 M/mm3 (4.2-5.4)
[2022-04-23 11:48] LABS: BUN 15 mg/dL (7-18); Creatinine, Serum 0.73 mg/dL (0.55-1.02); EST Glomerular Filtration Rate 85 mL/min (>60); Glucose 226 mg/dL (74-106)
[2022-04-23 11:49] LABS: ALB/GLOB Ratio 1.1 RATIO (0.9-2.4); AST(SGOT) 24 U/L (15-37); Alanine Aminotransfer ALT/SGPT 32 U/L (13-56); Albumin, Serum 4.1 g/dL (3.2-5.0); Alkaline Phosphatase 92 U/L (45-117); Anion Gap 8 (5-15); BUN/Creat Ratio 20.6 RATIO (10-20); Calcium,Total 9.5 mg/dL (8.5-10.1); Chloride 103 mmol/L (98-107); Cholesterol 261 mg/dL (200); Est Glom Filt Rate - Afr Amer 103 mL/min (>60); Globulin 3.7 g/dL (2.2-4.2); High Density Lipoprotein 45 mg/dL; Potassium 3.9 mmol/L (3.5-5.1); Protein, Total 7.8 g/dL (6.4-8.2); Sodium Level 136 mmol/L (136-145); Thyroid Stim Hormone (TSH) 3.19 uIU/mL (0.358-3.74); Triglycerides 272 mg/dL; Very Low Density Lipoprotein 54 mg/dL (5-40)
== END | disposition home or self-care (01) ==
LOC: LAB 09:53
PROVIDERS: Referring Provider Nurse Practitioner Adult Health; Visit Provider Nurse Practitioner Adult Health
DX: E11.42 Type 2 diabetes mellitus with diabetic polyneuropathy (principal)
CPT/HCPCS: 36415; 80053; 80061; 84443; 85025

== ENCOUNTER 2022-05-12 19:31 | Emergency (ER) | payer MEDICARE, SELFPAY ==
[2022-05-12 19:32] VITALS: BP 114/75; PULSE 107; RESP 15; TEMP 36.4; O2SAT 95; BMI 34.5
--- NOTE | 2022-05-12 19:43 | EDS_ITS ---
HPI History of Present Illness Chief Complaint: Laceration Detail of Chief Complaint: Laceration to left foot Informant: patient Narrative Narrative: Patient presents to the emergency department complaint of a laceration to her left foot that occurred prior to arrival in the emergency department. Patient states that she had a glass candle top that had broken and she thought she swept it all up and accidentally stepped on a piece of glass. She believes she remove the glass and does not feel like there is glass in her foot as she does not have much discomfort when she walks. Patient is a diabetic. She is unsure of her last tetanus shot. [facility] Medical History (Updated 05/12/22 @ 19:[address] Evelyn Chau, DO) Anxiety Arthritis Bilateral lower back pain Depression Diabetes Diarrhea Fatigue HTN (hypertension) Hyperlipemia Numbness and tingling Rheumatoid arthritis Suprapubic pain Thyroid disease Type 2 diabetes mellitus Home Medications lisinopril 20 mg PO BID 02/26/16 [History Last Taken 10/03/20] metformin 1,000 mg PO BID 02/26/16 [History Last Taken 10/03/20] escitalopram oxalate 20 mg tablet 20 mg PO BID tab 09/27/20 [History Last Taken 10/03/20] gabapentin 300 mg capsule 300 mg PO TID cap 09/27/20 [History Last Taken 10/03/20] glimepiride 2 mg tablet 2 mg PO BID tab 09/27/20 [History Last Taken 10/03/20] levothyroxine 150 mcg tablet 150 mcg PO DAILY tab 09/27/20 [History Last Taken 10/03/20] atorvastatin 20 mg PO QHS 09/28/20 [History Last Taken 10/03/20] tizanidine 4 mg tablet 4 mg PO tab 07/16/21 [History Last Taken Unknown] tramadol 50 mg tablet tablet PO 11/28/21 [History Last Taken Unknown] albuterol sulfate 90 mcg/actuation aerosol inhaler 2 puff INHALATION Q4H PRN #18 g 04/05/22 [Rx Last Taken Unknown] Allergy/AdvReac Type Severity Reaction Status Date / Time venom-honey bee Allergy Severe Anaphylaxis Verified 05/12/22 19:35 prednisone AdvReac Mild [place] out Verified 05/12/22 19:35 of it Family History Daughter Asthma Father Cancer Arthritis Mother Heart disease Arthritis Surgical History History of History of throat surgery Hx of dilation and curettage Hx of tonsillectomy Social History household members: spouse housing: house Smoking Status: Never smoker second hand exposure: No alcohol intake: current alcohol intake frequency: holidays/special occasions only substance use type: does not use caffeine: Yes what type of physical activity do you participate in: none frequency: does not exercise do you feel safe at home: Yes ROS ROS ED Constitutional Constitutional ED: Reports systems reviewed and no addt'l complaints, except as documented; Denies body ache(s), change in weight or chills Eyes Eyes: Denies acute decrease in peripheral vision, change in vision, double vision or loss of vision ENT ENT ED: Reports none; Denies ear pain, lip swelling, loss taste/smell, neck pain, otalgia or sore throat Cardiovascular Cardiovascular: Reports none; Denies abdominal pain, chest pain with activity, leg edema, lightheadedness, palpitations, rapid heart rate or syncope Respiratory/Chest Respiratory/Chest: Reports none; Denies change in mental status, dry cough, dyspnea, hemoptysis, shortness of breath at rest or shortness of breath with exertion Gastrointestinal Gastrointestinal: Reports none; Denies abdominal pain, change in stool shwetha racter, diarrhea, hematemesis, hematochezia, melena, rectal bleeding or vomiting Genitourinary Genitourinary ED: Reports none; Denies abdominal discomfort, anuria, dysuria, genital pain or polyuria Musculoskeletal Musculoskeletal: Reports none and other Details: Laceration left foot ; Denies arthralgias, back pain, difficulty walking, extremity pain, muscle weakness or myalgias Integumentary Reports none; Denies abscess or rash Neurologic Neurologic: Reports none; Denies abnormal gait, confusion, focal weakness, frequent falls, headache(s), loss of vision, numbness, paresthesias, radicular pain, vertigo or weakness Psychiatric Psychiatric: Reports systems reviewed and no addt'l complaints, except as documented and none; Denies behavioral changes, confusion, difficulty concentrating, hallucinations, suicidal ideation, tactile hallucinations or visual hallucinations Endocrine Endocrinology: Denies none, cold intolerance, excessive sweating, fatigue or heat intolerance Hematologic/Lymphatic Hematologic/Lymphatic: Reports none; Denies anemia, easy bleeding or easy bruising Allergic/Immunologic Allergic/Immunologic ED: Denies as per HPI, none, lip swelling, mouth swelling, throat swelling, tongue swelling or hives EXAM Physical Exam Const Vital Signs: 05/12/22 19:32 Temperature 97.5 F L Temperature Source Temporal Pulse Rate 107 H Respiratory Rate 15 Blood Pressure 114/75 Blood Pressure Mean 88 Pulse Ox 95 Oxygen Delivery Method Room Air Positive well nourished and well developed General Appearance ED: well developed and NAD HEENT Reports TM's clear and moist mucous membranes normocephalic and atraumatic; Negative for trauma or tenderness Tympanic Membrane ED: Yes TM's clear Eyes PERRL and EOMs intact bilaterally General Eye ED: Negative for pale conjunctiva or scleral icterus Neck no lymphadenopathy, supple and no JVD General: Negative for tenderness Chest Wall inspection of chest normal and palpation of chest normal Chest: Negative for tenderness Resp normal respiratory effort and clear to auscultation bilaterally Effort and Inspection: Negative for respiratory distress or pain with movement Auscultation: Negative for rhonchi, wheezes or diminished lung sounds Cardio regular rate, regular rhythm, S1 normal heart sound, S2 normal heart sound and no murmurs Peripheral Pulses: pulses 2+ throughout GI normal to inspection, nondistended, normoactive bowel sounds, soft to palpation, non-tender, non-distended and no masses Back/Spine no CVA tenderness and no thoracic nor lumbar tenderness Extremity Extremity Narrative: Patient has a 2 cm laceration to the plantar aspect of the left foot over the first MTP joint. She has normal range of motion flexion extension of all digits. She is neurovascular intact. No obvious foreign bodies noted within the wound. General Extremety ED: Negative for edema General Extremity: Negative for edema Neuro oriented x3, CN's II-XII intact bilaterally, no sensory deficits noted and gait normal Sensorium / Orientation: awake, alert, oriented to person, oriented to place and oriented to time Motor Exam: strength 5/5 throughout and strength abnormal Psych mental status grossly normal Skin no rashes or lesions noted and no wounds MDM MDM MDM Narrative Medical decision making narrative: Patient will have x-rays obtained to rule out foreign body. She was offered suture repair to which she agreed. Radiography Diagnostic Testing: Three-view x-rays of the left foot obtained interpreted by myself as no evidence of foreign body. Official report from radiology will be pending. Procedures Lacerations Foot laceration: Length: 1.18 in Depth: Sub Q Shape: Linear Laceration repair: Lidocaine and Local Irrigated (ml): 50 Number of Sutures/Mateo: 4 Suture Information: Ethilon, Simple and 4-0 Discharge Plan Triage Chief Complaint: Laceration ED Provider: Evelyn Chau Dx/Rx/DC Orders Clinical Impression: Foot laceration Instructions: ED Laceration: All Closures Prescriptions: No Action escitalopram oxalate 20 mg tablet 20 mg PO BID RF: 0 glimepiride 2 mg tablet 2 mg PO BID RF: 0 gabapentin 300 mg capsule 300 mg PO TID RF: 0 levothyroxine 150 mcg tablet 150 mcg PO DAILY RF: 0 tizanidine 4 mg tablet 4 mg PO RF: 0 tramadol 50 mg tablet PO RF: 0 albuterol sulfate [Ventolin HFA] 90 mcg/actuation HFA aerosol inhaler 2 puff inhalation Q4H PRN (Reason: shortness of breath or wheezing) Qty: 18 RF: 6 metformin 1,000 MG tablet 1,000 mg PO BID RF: 0 lisinopril 40 MG tablet 20 mg PO BID RF: 0 atorvastatin 20 MG tablet 20 mg PO QHS RF: 0 Primary Care Provider: Columba Storm Referrals: [facility] Columba Tovar [Primary Care Provider] - 10 Day for suture removal Disposition Disposition: Home, Self Care
[2022-05-12] MEDS: Diphth,Pertuss(Acell),Tet Vac 0.5 ML Vial IM (19:50)
--- NOTE | 2022-05-12 19:54 | RAD_ITS ---
EXAM: XR LEFT FOOT COMPLETE, 3 OR MORE VIEWS CLINICAL INDICATION: ro foreign body TECHNIQUE: Frontal, lateral and oblique views of the left foot. This report was created using [employer] report generation technology. COMPARISON: None. FINDINGS: BONES/JOINTS: Mild hallux valgus deformity of the great toe. No acute fracture. No subluxation. Normal alignment. Preservation of the joint space. No sclerotic or destructive changes observed. SOFT TISSUES: Unremarkable. No soft tissue swelling or gas. No radiopaque foreign body. RAD/Foot min 3 Views IMPRESSION: Negative left foot x-rays. No foreign body identified. Electronically Signed: Jordana Us MD at 21:06 EDT ,
[2022-05-12 20:15] VITALS: BP 132/74; PULSE 78; RESP 17; O2SAT 99
== END 2022-05-12 20:00 | disposition home or self-care (01) ==
PROVIDERS: Emergency Provider Emergency Medicine; Visit Provider Emergency Medicine
DX: S91.312A Laceration without foreign body, left foot, initial encounter (principal); W25.XXXA Contact with sharp glass, initial encounter; Z23 Encounter for immunization; E11.9 Type 2 diabetes mellitus without complications; I10 Essential (primary) hypertension; E78.5 Hyperlipidemia, unspecified; E07.9 Disorder of thyroid, unspecified; Z79.84 Long term (current) use of oral hypoglycemic drugs; Z79.890 Hormone replacement therapy; Z79.899 Other long term (current) drug therapy
CPT/HCPCS: 12002; 73630; 90715; 99282

== ENCOUNTER 2022-08-08 17:16 | Emergency (ER) | payer MEDICARE, SELFPAY ==
[2022-08-08 17:17] VITALS: BP 130/100; PULSE 93; RESP 15; TEMP 36.3; O2SAT 100; BMI 36.5
--- NOTE | 2022-08-08 17:39 | CT_ITS ---
STUDY: CT ABDOMEN AND PELVIS WITHOUT CONTRAST REASON FOR EXAM: Female, 66 years old. flank Pain RADIATION DOSAGE (If Supplied By Facility): CTDIvol = ( 20.51 ) mGy, DLP = ( 1009.27 ) mGycm TECHNIQUE: Transaxial images were obtained from the dome of the diaphragm to the symphysis pubis without oral contrast, and without intravenous contrast. Sagittal and coronal images were reconstructed. Individualized dose optimization techniques were used for this CT. COMPARISON: 06/02/2020 FINDINGS: Minor interstitial thickening at the lung bases.. The visualized portions of the heart are within normal limits. Small hiatal hernia is noted. Enlarged nonspecific fatty infiltrated liver without mass or bile duct dilatation. Small poorly calcified gallstones without evidence for acute cholecystitis. Normal spleen. Normal pancreas. Normal bilateral adrenal glands. Tiny nonobstructing right renal calculus without evidence for focal mass.. Tiny nonobstructing left renal calculus. There is a large cyst Require additional imaging. Normal visualized stomach. Normal small intestine. Minor diverticular changes of the sigmoid colon without evidence for acute vasculitis.. The appendix is visualized and appears normal. Minor atherosclerotic changes of the aorta without evidence for aneurysm. Normal inferior vena cava. Normal retroperitoneum. Incompletely distended thick-walled bladder of uncertain significance. Small fat-containing umbilical hernia. Normal osseous structures. CT/Abdomen/Pelvis without Cont IMPRESSION: Cholelithiasis without evidence for acute cholecystitis. Bilateral nephrolithiasis without evidence for hydronephrosis or ureteral calculus. Minor diverticular changes of the sigmoid colon without evidence for acute diverticulitis. Electronically Signed: Flaquito Oakes MD at 18:36 EDT ,
--- NOTE | 2022-08-08 17:42 | ED.VIS.GI ---
HPI HPI - GI History of Present Illness Chief Complaint: Abd Pain Informant: patient Narrative Narrative: Patient presents with 3 days of left lower quadrant pain. It has started and stayed in that area. The first days were not that bad. It was waxing and waning. It is still described as sharp. But there is an aching component to it. Last night it was much worse and much sharper. It has never gone to the back or flank. It is never gone to the inguinal area or suprapubic area. Nothing makes it better or worse. It is now a little bit better than it was last night but not gone. She has never had fevers chills nausea vomiting change in bowel habits or urination. Urine has been clear and yellow. No blood or darkening seen. She has never had colonoscopy. No known history of diverticular disease. She did have a kidney stone on the right some years ago but does not know if this is the same. Only surgery are D&C and C-sections. [facility] Medical History Anxiety Arthritis Bilateral lower back pain Depression Diabetes Diarrhea Fatigue HTN (hypertension) Hyperlipemia Numbness and tingling Rheumatoid arthritis Suprapubic pain Thyroid disease Type 2 diabetes mellitus Home Medications lisinopril 40 mg tablet 20 mg PO BID 02/26/16 [History Last Taken 10/03/20] metformin 1,000 mg tablet 1,000 mg PO BID 02/26/16 [History Last Taken 10/03/20] escitalopram oxalate 20 mg tablet 20 mg PO BID 09/27/20 [History Last Taken 10/03/20] gabapentin 300 mg capsule 300 mg PO TID 09/27/20 [History Last Taken 10/03/20] glimepiride 2 mg tablet 2 mg PO BID 09/27/20 [History Last Taken 10/03/20] levothyroxine 150 mcg tablet 150 mcg PO DAILY 09/27/20 [History Last Taken 10/03/20] atorvastatin 20 mg tablet 20 mg PO QHS 09/28/20 [History Last Taken 10/03/20] tizanidine 4 mg tablet 4 mg PO 07/16/21 [History Last Taken Unknown] tramadol 50 mg tablet tablet PO 11/28/21 [History Last Taken Unknown] albuterol sulfate 90 mcg/actuation aerosol inhaler (Ventolin HFA) 2 puff inhalation Q4H PRN shortness of breath or wheezing #18 grams 04/05/22 [Rx Last Taken Unknown] oxycodone-acetaminophen 5 mg-325 mg tablet (Percocet) 1 tab PO Q6H PRN pain 3 days #10 tabs 08/08/22 [Rx Last Taken Unknown] Allergy/AdvReac Type Severity Reaction Status Date / Time venom-honey bee Allergy Severe Anaphylaxis Verified 08/08/22 17:17 prednisone AdvReac Mild [place] out Verified 08/08/22 17:17 of it Family History Daughter Asthma Father Cancer Arthritis Mother Heart disease Arthritis Surgical History History of History of throat surgery Hx of dilation and curettage Hx of tonsillectomy Social History household members: spouse housing: house Smoking Status: Never smoker second hand exposure: No alcohol intake: current alcohol intake frequency: holidays/special occasions only substance use type: does not use caffeine: Yes what type of physical activity do you participate in: none frequency: does not exercise do you feel safe at home: Yes ROS ROS ED Constitutional Constitutional ED: Denies chills, fever(s) or subjective ENT ENT ED: Denies sore throat Cardiovascular Cardiovascular: Denies palpitations Respiratory/Chest Respiratory/Chest: Denies cough or dyspnea Gastrointestinal Gastrointestinal: Reports abdominal pain; Denies constipation, diarrhea, melena, nausea or vomiting Genitourinary Genitourinary ED: Denies dysuria, hematuria or urinary frequency Musculoskeletal Musculoskeletal: Denies back pain Integumentary Denies rash Neurologic Neurologic: Denies paresthesias or weakness Endocrine Endocrinology: Denies polydipsia or polyuria Hematologic/Lymphatic Hematologic/Lymphatic: Denies easy bleeding or easy bruising Allergic/Immunologic Allergic/Immunologic ED: Denies urticaria EXAM Physical Exam Const Vital Signs: 08/08/22 17:17 Temperature 97.3 F L Temperature Source Temporal Pulse Rate 93 Respiratory Rate 15 Blood Pressure 130/100 H Blood Pressure Mean 110 Pulse Ox 100 Oxygen Delivery Method Room Air Positive well nourished, well developed and obese General Appearance ED: well developed and NAD Nutritional Appearance: obese HEENT Reports moist mucous membranes Eyes General Eye ED: Negative for scleral icterus Neck no lymphadenopathy Resp normal respiratory effort and clear to auscultation bilaterally Cardio regular rate and regular rhythm GI GI Narrative: Abdomen is soft. Bowel sounds are normal. No distention. There is a small amount of tenderness very low in the left lower quadrant. But it is clearly above the inguinal ligament. There is no hernia felt or hernia with straining. No CVA tenderness. I do not feel a mass. There are no rashes locally. Back/Spine no CVA tenderness Extremity General Extremety ED: Negative for tenderness Neuro Sensorium / Orientation: alert Psych mental status grossly normal Skin no wounds MDM MDM MDM Narrative Medical decision making narrative: Patient CBC shows normal results. This includes white count. Electrolytes are overall unremarkable other than glucose of 200 which is reasonably good control for her. Urine is clean. CT scan shows no sign of acute explanation for her symptoms. Patient noted that as she moved off the CT scan table that twisting and motion really cause discomfort. I think this might be musculoskeletal. It is very well localized. It is not tender to press. But it does hurt when she moves or twists. We will get her pain meds. Ice rest. If she develops worsening pain, nausea, vomiting, fever or other concerns she should return. Lab Data Attestation: I reviewed the patient's lab results. Labs: Laboratory Results - last 24 hr 08/08/22 08/08/22 08/08/22 17:50 17:50 17:50 WBC 6.2 RBC 4.62 Hgb 13.9 Hct 41.3 MCV 89.4 MCH 30.1 MCHC 33.7 RDW Std Deviation 43.1 RDW Coeff of Leo 13.3 Plt Count 273 MPV 10.2 Immature Gran % (Auto) 0.300 Neut % (Auto) 49.6 Lymph % (Auto) 40.9 [place] % (Auto) 7.0 Eos % (Auto) 1.6 Baso % (Auto) 0.6 Absolute Neuts (auto) 3.1 Absolute Lymphs (auto) 2.53 Nucleated RBC % 0 Sodium 141 Potassium 3.7 Chloride 105 Carbon Dioxide 26.0 Anion Gap 10 BUN 13 Creatinine 0.79 Estim Creat Clear Calc 49.80 Est GFR (MDRD) Af Amer 93 Est GFR (MDRD) Non-Af 77 BUN/Creatinine Ratio 16.5 Glucose 200 H Calcium 10.0 Urine Color Yellow Urine Clarity Clear Urine pH 6.0 Ur Specific [place] 1.015 Urine Protein 15 H Urine Glucose (UA) 1000 H Urine Ketones 5 H Urine Occult Blood Negative Urine Nitrite Negative Urine Bilirubin Negative Urine Urobilinogen 1 H Ur Leukocyte Esterase Negative Urine RBC 0 SEEN Urine WBC 0 SEEN Ur Squamous Epith Cells 0-5 SEEN Urine Bacteria 1+ Urine Mucus 0 SEEN Radiography Diagnostic Testing: Clinical Impression(s) from Imaging Studies Abdomen/Pelvis CT 08/08/22 17:39 IMPRESSION: Cholelithiasis without evidence for acute cholecystitis. Bilateral nephrolithiasis without evidence for hydronephrosis or ureteral calculus. Minor diverticular changes of the sigmoid colon without evidence for acute diverticulitis. Electronically Signed: Flaquito Oakes MD at 18:36 EDT Reading Location ID and State: [facility] / [place] , Service support , Discharge Plan Triage Chief Complaint: Abd Pain ED Provider: Nasir Colin Dx/Rx/DC Orders Clinical Impression: Abdominal pain, left lower quadrant Instructions: ED Abdominal Pain Unkn Cause Fem Prescriptions: New oxycodone-acetaminophen [Percocet] 5-325 mg tablet 1 tab PO Q6H PRN (Reason: pain) 3 Days Qty: 10 0RF No Action escitalopram oxalate 20 mg tablet 20 mg PO BID glimepiride 2 mg tablet 2 mg PO BID gabapentin 300 mg capsule 300 mg PO TID levothyroxine 150 mcg tablet 150 mcg PO DAILY tizanidine 4 mg tablet 4 mg PO tramadol 50 mg tablet PO albuterol sulfate [Ventolin HFA] 90 mcg/actuation HFA aerosol inhaler 2 puff inhalation Q4H PRN (Reason: shortness of breath or wheezing) Qty: 18 6RF metformin 1,000 MG tablet 1,000 mg PO BID Label Comments: BLOOD SUGAR lisinopril 40 MG tablet 20 mg PO BID Label Comments: BLOOD PRESSURE atorvastatin 20 MG tablet 20 mg PO QHS Primary Care Provider: Columba Storm Referrals: [facility] Columba Tovar [Primary Care Provider] - 3-5 Days if not improving Disposition Disposition: Home, Self Care
[2022-08-08] MEDS: Ondansetron 4 MG/2 ML Vial IV (17:47)
[2022-08-08] MEDS: Morphine 4 MG/ML Syringe IV (17:47)
[2022-08-08 18:03] LABS: Mucous, Urine 0 SEEN /hpf (<or=2+); Red Blood Cells-Urine 0 SEEN /hpf (0-5); White Blood Cells 0 SEEN /hpf (0-5)
[2022-08-08 18:08] LABS: Absolute Lymphocyte Count 2.53 X10^3/uL (0.83-4.51); Absolute Neutrophil Count 3.1 X10^3/uL (2.0-7.7); Basophil# 0.04 X10^3/uL; Basophil% 0.6 % (0-1); Eosinophils% 1.6 % (0-5); Hematocrit 41.3 % (37-47); Hemoglobin 13.9 g/dL (12.0-15.0); Lymphocyte # 2.53 X10^3/ul (0.83-4.51); Lymphocyte % 40.9 % (19-41); Mean Corp Hgb Conc 33.7 g/dL (32-36); Mean Corpuscular Hgb 30.1 pg (27.0-32.0); Mean Corpuscular Volume 89.4 fL (81-99); Mean Platelet Vol. 10.2 fl (6.2-12.0); Monocyte# 0.43 X10^3/uL; NRBC Flagged by Analyzer 0 % (0-5); Neutrophil # 3.06 X10^3/uL (2.7-7.7); Neutrophil % 49.6 % (47-70); Platelet Count 273 K/mm3 (150-450); RBC Distribution Width CV 13.3 % (11.6-14.6); RBC Distribution Width SD 43.1 fl (35.1-43.9); Red Blood Count 4.62 M/mm3 (4.2-5.4); White Blood Count 6.2 K/mm3 (4.4-11.0)
[2022-08-08 18:09] LABS: Color, Urine Yellow (Yellow); Glucose, Dipstick 1000 mg/dl (Normal); Ketone-Dipstick 5 mg/dl (Negative); Leukocyte Esterase-Dipstick Negative /ul (Negative); Nitrite-Dipstick Negative (Negative); Occult Blood-Urine Negative /ul (Negative); Protein-Dipstick 15 mg/dl (Negative); Specific Gravity, Urine 1.015 (1.002-1.030); Urine Bilirubin Dipstick Negative (Negative); Urine Clarity Clear (Clear); Urine Urobilinogen 1 mg/dl (Normal)
[2022-08-08 18:22] LABS: Bacteria 1+ /hpf (None Seen); Squamous Epithelial Cells - UA 0-5 SEEN /hpf (5-10)
[2022-08-08 18:35] LABS: Anion Gap 10 (5-15); BUN 13 mg/dL (7-18); BUN/Creat Ratio 16.5 RATIO (10-20); Chloride 105 mmol/L (98-107); Creatinine, Serum 0.79 mg/dL (0.55-1.02); EST Glomerular Filtration Rate 77 mL/min (>60); Est Glom Filt Rate - Afr Amer 93 mL/min (>60); Glucose 200 mg/dL (74-106); Potassium 3.7 mmol/L (3.5-5.1); Sodium Level 141 mmol/L (136-145)
[2022-08-08] MEDS: HYDROmorphone 0.5 MG/0.5 ML SYRINGE IV (19:52)
[2022-08-08 19:56] VITALS: BP 129/63; PULSE 70; RESP 16; O2SAT 97
== END 2022-08-08 19:57 | disposition home or self-care (01) ==
PROVIDERS: Emergency Provider Emergency Medicine; Visit Provider Emergency Medicine
DX: R10.32 Left lower quadrant pain (principal); M06.9 Rheumatoid arthritis, unspecified; E11.9 Type 2 diabetes mellitus without complications; I10 Essential (primary) hypertension; E78.5 Hyperlipidemia, unspecified; E07.9 Disorder of thyroid, unspecified; F32.A Depression, unspecified; Z79.84 Long term (current) use of oral hypoglycemic drugs; Z79.899 Other long term (current) drug therapy
CPT/HCPCS: 74176; 80048; 81001; 85025; 96361; 96374; 96375; 99283; J7040; A4216; J2405

== ENCOUNTER → 2022-09-04 | Outpatient (CLI) | payer MEDICARE, SELFPAY ==
[2022-09-04 11:17] LABS: AST(SGOT) 24 U/L (15-37); Alanine Aminotransfer ALT/SGPT 38 U/L (13-56); Cholesterol 220 mg/dL (200); High Density Lipoprotein 44 mg/dL; Triglycerides 264 mg/dL; Very Low Density Lipoprotein 53 mg/dL (5-40)
== END | disposition home or self-care (01) ==
LOC: LAB 09:49
PROVIDERS: Referring Provider Nurse Practitioner Adult Health; Visit Provider Nurse Practitioner Adult Health
DX: E78.5 Hyperlipidemia, unspecified (principal)
CPT/HCPCS: 36415; 80061; 84450; 84460

== ENCOUNTER → 2023-05-07 | Outpatient (CLI) | payer MEDICARE, SELFPAY ==
[2023-05-07 17:24] LABS: Vitamin D,25 Hydroxy 44.7 ng/mL
== END | disposition home or self-care (01) ==
LOC: LAB 15:14
PROVIDERS: Referring Provider Nurse Practitioner Family; Visit Provider Nurse Practitioner Family
DX: E55.9 Vitamin D deficiency, unspecified (principal)
CPT/HCPCS: 36415; 82306

== ENCOUNTER → 2023-05-08 | Outpatient (CLI) | payer MEDICARE, SELFPAY ==
[2023-05-08 10:53] LABS: Hematocrit 40.5 % (37-47); Hemoglobin 13.5 g/dL (12.0-15.0); Mean Corp Hgb Conc 33.3 g/dL (32-36); Mean Corpuscular Hgb 29.9 pg (27.0-32.0); Mean Corpuscular Volume 89.8 fL (81-99); Mean Platelet Vol. 10.2 fl (6.2-12.0); Platelet Count 227 K/mm3 (150-450); RBC Distribution Width CV 13.7 % (11.6-14.6); RBC Distribution Width SD 44.5 fl (35.1-43.9); Red Blood Count 4.51 M/mm3 (4.2-5.4)
[2023-05-08 11:30] LABS: Hemoglobin A1c 8.3 % (3.8-5.6)
[2023-05-08 11:36] LABS: Anion Gap 6 (5-15); BUN 9 mg/dL (7-18); BUN/Creat Ratio 13.2 RATIO (10-20); Calcium,Total 9.1 mg/dL (8.5-10.1); Chloride 108 mmol/L (98-107); Creatinine, Serum 0.68 mg/dL (0.55-1.02); EST Glomerular Filtration Rate 91 mL/min (>60); Est Glom Filt Rate - Afr Amer 111 mL/min (>60); Glucose 214 mg/dL (74-106); Sodium Level 138 mmol/L (136-145); T4 Free Direct 1.14 ng/dL (0.76-1.46); Thyroid Stim Hormone (TSH) 0.32 uIU/mL (0.358-3.74)
== END | disposition home or self-care (01) ==
LOC: LAB 10:25
PROVIDERS: PCP Nurse Practitioner Family; Referring Provider Nurse Practitioner Family; Visit Provider Nurse Practitioner Family
DX: E03.9 Hypothyroidism, unspecified (principal); E11.42 Type 2 diabetes mellitus with diabetic polyneuropathy; I10 Essential (primary) hypertension
CPT/HCPCS: 36415; 80048; 83036; 84439; 84443; 85027

== ENCOUNTER → 2023-05-22 | Outpatient (CLI) | payer MEDICARE, SELFPAY ==
--- NOTE | 2023-05-22 13:42 | BD_ITS ---
STUDY: DUAL ENERGY X-RAY ABSORPTIOMETRY / DXA REASON FOR EXAM: Female, 67 years old. 627.8Menopausal postmenopausal BONE DENSITY REASON FOR EXAM TECHNIQUE: Bone Mineral Density (BMD) measurements of lumbar spine and bilateral hips were obtained. COMPARISON: None. FINDINGS: Lumbar Spine (L1-L4): g/cm2 (0.987) / T-score (-0.5) / Z-score (1.4) Findings are suggestive of normal bone density with a low fracture risk. Left Femur Total: g/cm2 (0.911) / T-score (-0.3) / Z-score (1.1) Left Femoral Neck: g/cm2 (0.717) / T-score (-1.2) / Z-score (0.5) Right Femur Total: g/cm2 (0.903) / T-score (-0.3) / Z-score (1.0) Right Femoral Neck: g/cm2 (0.785) / T-score (-0.6) / Z-score (1.1) BD/Dexa Bone Density Study IMPRESSION: The patient is considered osteopenic as outlined below according to World [employer] Organization (WHO) criteria with a low fracture risk. Reference Information: The T-score is the number of standard deviations above or below the standard which is normal for young adults at their peak bone mineral density. The World Health Organization (WHO) interprets the T-scores as follows: Above -1 Normal bone density Between -1 and -2.5 Osteopenia Equal to / or below -2.5 Osteoporosis As a practical clinical guideline, osteopenia may be graded as follows: Mild -1 through -1.5 Moderate -1.6 through -2.0 Severe -2.1 through -2.4 The Z-score is the number of standard deviations above or below age-matched controls. A Z-score of less than -1.5 would be considered abnormal. References: 1. NIH Osteoporosis and Related Bone Diseases www osteo.org 2. International Society for Clinical Densitometry www iscd.org 3. National Osteoporosis Foundation www nof.org Electronically Signed: Jose Palencia MD at 15:34 EDT ,
== END | disposition home or self-care (01) ==
LOC: OPBD 13:38
PROVIDERS: PCP Nurse Practitioner Family; Referring Provider Nurse Practitioner Family; Visit Provider Nurse Practitioner Family
DX: Z13.820 Encounter for screening for osteoporosis (principal); Z78.0 Asymptomatic menopausal state
CPT/HCPCS: 77080

== ENCOUNTER 2023-07-17 15:52 | Emergency (ER) | payer MEDICARE, SELFPAY ==
[2023-07-17 15:54] VITALS: BP 148/82; PULSE 90; RESP 20; TEMP 35.8; O2SAT 98; BMI 36.2
--- NOTE | 2023-07-17 16:07 | EKG12_ITS ---
Test Reason : HIGH BS Blood Pressure : / mmHG Vent. Rate : 092 BPM Atrial Rate : 092 BPM P-R Int : 138 ms QRS Dur : 126 ms QT Int : 390 ms P-R-T Axes : 002 -77 019 degrees QTc Int : 482 ms Sinus rhythm with Premature atrial complexes Right bundle branch block Left anterior fascicular block Bifascicular block Abnormal ECG Confirmed by SLIME CUNNINGHAM ([id number]), assistant film editor TRISTAN ABREU ([id number]) on 07/22/2023 9:03:01 AM Referred By: Confirmed By:SLIME CUNNINGHAM
--- NOTE | 2023-07-17 16:08 | EDS_ITS ---
HPI History of Present Illness Chief Complaint: Hyperglycemia Informant: patient Onset/Context/Timing Onset: Today Narrative Narrative: Patient presents secondary to decreased energy and weakness. She states she dinorah cadet has not felt well in general today, especially over the past 5 hours. She laid down to rest. When she got up she started not feel better. She took her blood sugars and her initial blood sugar reading was in the 280s and her repeat was in the 270s. She states she normally runs around 130. She took her normal medications this morning and did eat normally. No change in medication or diet. She denies any infectious symptoms. [facility] Medical History Abnormal bruising Anxiety Arthritis Asthma Bilateral lower back pain Chronic neck and back pain Depression Diabetes Diarrhea Difficulty balancing when standing Fatigue Hay fever HTN (hypertension) Hyperlipemia Knee pain Numbness and tingling Rheumatoid arthritis Suprapubic pain Thyroid disease Type 2 diabetes mellitus URI (upper respiratory infection) Home Medications lisinopril 40 mg tablet 20 mg PO BID 02/26/16 [History Last Taken 10/03/20] metformin 1,000 mg tablet 1,000 mg PO BID 02/26/16 [History Last Taken 10/03/20] atorvastatin 20 mg tablet 80 mg PO QHS 09/28/20 [History Last Taken 10/03/20] celecoxib 100 mg capsule 100 mg PO Q24H 01/27/23 [History Last Taken Unknown] gabapentin 600 mg tablet 600 mg PO Q8H 07/17/23 [History Last Taken Unknown] glipizide PO DAILY 07/17/23 [History Last Taken Unknown] levothyroxine 150 mcg tablet mcg 07/17/23 [History Last Taken Unknown] pioglitazone 30 mg tablet 30 mg PO DAILY 07/17/23 [History Last Taken Unknown] tizanidine 4 mg tablet 4 mg PO Q12H 07/17/23 [History Last Taken Unknown] Allergy/AdvReac Type Severity Reaction Status Date / Time venom-honey bee Allergy Severe Anaphylaxis Verified 07/17/23 15:54 prednisone AdvReac Mild [place] out Verified 07/17/23 15:54 of it Family History Daughter Asthma Father Cancer Arthritis Mother Heart disease Arthritis Surgical History History of History of throat surgery Hx of dilation and curettage Hx of tonsillectomy Social History household members: spouse housing: house Smoking Status: Former smoker second hand exposure: No alcohol intake: current alcohol intake frequency: holidays/special occasions only substance use type: does not use caffeine: Yes what type of physical activity do you participate in: none frequency: does not exercise do you feel safe at home: Yes ROS ROS ED Constitutional Constitutional ED: Denies chills or fever(s) Eyes Eyes: Denies change in vision ENT ENT ED: Denies rhinorrhea or sore throat Cardiovascular Cardiovascular: Denies chest pain or palpitations Respiratory/Chest Respiratory/Chest: Denies cough or dyspnea Gastrointestinal Gastrointestinal: Denies abdominal pain, diarrhea, nausea or vomiting Genitourinary Genitourinary ED: Denies dysuria Musculoskeletal Musculoskeletal: Reports other Details: Generalized fatigue ; Denies back pain or extremity pain Integumentary Denies Abrasions or rash Neurologic Neurologic: Reports weakness; Denies headache(s) Psychiatric Psychiatric: Denies anxiety or depression Allergic/Immunologic Allergic/Immunologic ED: Denies lip swelling or urticaria EXAM Physical Exam Const Vital Signs: 07/17/23 15:54 07/17/23 16:28 07/17/23 16:29 Temperature 96.5 F L Temperature Source Temporal Pulse Rate 90 90 Respiratory Rate 20 H 20 H Respiratory Effort Normal Non-Labored Blood Pressure 148/82 H 162/78 H Blood Pressure Mean 104 106 Pulse Ox 98 98 Oxygen Delivery Method Room Air Room Air 07/17/23 18:36 Temperature Temperature Source Pulse Rate 72 Respiratory Rate 20 H Respiratory Effort Blood Pressure 152/74 H Blood Pressure Mean 100 Pulse Ox 98 Oxygen Delivery Method Room Air Positive well nourished and well developed General Appearance ED: well developed HEENT Reports normocephalic and head/scalp atraumatic HEENT Narrative: Slightly dry mucous membranes. Eyes PERRL and EOMs intact bilaterally Neck supple Chest Wall inspection of chest normal and palpation of chest normal Resp normal respiratory effort and clear to auscultation bilaterally Cardio regular rate and regular rhythm GI normal to inspection, nondistended, normoactive bowel sounds Palpation: soft Extremity normal to inspection Neuro oriented x3 and no sensory deficits noted Sensorium / Orientation: alert Motor Exam: strength 5/5 throughout Psych mental status grossly normal Skin no rashes or lesions noted MDM MDM MDM Narrative Medical decision making narrative: Patient given a liter IV fluids. Labwork obtained to evaluate for leukocytosis, anemia, and electrolyte derangement. EKG obtained to evaluate for cardiac arrhythmia/ischemia. Chest x-ray obtained to evaluate for acute lung pathology, cardiac size, or mediastinal abnormality. History & Record Review Discussion w/independent historian: Patient Additional record(s) reviewed:: Prior outpatient record, Prior ED visit and Prior labs Lab Data Attestation: I reviewed the patient's lab results. Labs: Laboratory Results - last 24 hr 07/17/23 07/17/23 07/17/23 16:23 16:25 17:45 WBC 6.4 RBC 4.74 Hgb 13.7 Hct 43.4 MCV 91.6 MCH 28.9 MCHC 31.6 L RDW Std Deviation 47.5 H RDW Coeff of Leo 14.0 Plt Count 281 MPV 9.9 Immature Gran % (Auto) 0.900 Neut % (Auto) 49.4 Lymph % (Auto) 38.3 [place] % (Auto) 8.2 Eos % (Auto) 2.4 Baso % (Auto) 0.8 Absolute Neuts (auto) 3.1 Absolute Lymphs (auto) 2.43 Nucleated RBC % 0 Sodium 141 Potassium 3.5 Chloride 109 H Carbon Dioxide 27.0 Anion Gap 5 BUN 11 Creatinine 0.82 Estim Creat Clear Calc 59.91 Est GFR (MDRD) Af Amer 89 Est GFR (MDRD) Non-Af 73 BUN/Creatinine Ratio 13.3 Glucose 195 H Hemoglobin A1c 7.6 H Calcium 9.2 Urine Color Yellow Urine Clarity Clear Urine pH 5.0 Ur Specific [place] 1.025 Urine Protein 15 H Urine Glucose (UA) 1000 H Urine Ketones 5 H Urine Occult Blood Negative Urine Nitrite Negative Urine Bilirubin Negative Urine Urobilinogen 1 H Ur Leukocyte Esterase 25 H Urine RBC 0 SEEN Urine WBC 0-5 SEEN Ur Squamous Epith Cells 0-5 SEEN Urine Bacteria 1+ Urine Mucus 0 SEEN Acetone Level NEGATIVE POC Glucose 208 H Radiography Chest X-Ray - ED: 1 View, Read by ED Physician and - (Rotation noted but no acute abnormalities appreciated.) Diagnostic Testing: Clinical Impression(s) from Imaging Studies Chest X-Ray 07/17/23 16:40 IMPRESSION: No radiographic evidence of acute cardiopulmonary disease. Electronically Signed: Luis Jerez MD at 17:35 EDT , EKG Initial EKG: Attestation: I personally reviewed and interpreted this EKG as follows: Interpretation: Sinus Rhythm (Sinus at 92 with a bifascicular block. Prior EKG from 2019 revealed a right bundle branch block. No acute ischemia is noted.) Treatment and Re-Evaluation :: CBC was normal white count at 6.4 with a hemoglobin of 13.7. Chemistry studies are unremarkable other than a glucose of 195. Her hemoglobin A1c is 7.6. This is actually improved when compared to her most recent check. Urinalysis does reveal thousand of glucose but no evidence of infection. Serum acetone is negative. EKG reveals no evidence of acute ischemia. Portable chest x-ray is rotated but reveals no focal infiltrate. After 1 L of IV fluid repeat blood sugar is now 106. Patient encouraged to continue to monitor her blood sugars and keep a journal for her physician. Return instructions provided. Discharge Plan Triage Chief Complaint: Hyperglycemia ED Provider: Leigha Kebede Dx/Rx/DC Orders Clinical Impression: Hyperglycemia Instructions: ED Diabetic Hyperglycemia Prescriptions: No Action celecoxib 100 mg capsule 100 mg PO Q24H metformin 1,000 MG tablet 1,000 mg PO BID Patient Comments: BLOOD SUGAR lisinopril 40 MG tablet 20 mg PO BID Patient Comments: BLOOD PRESSURE atorvastatin 20 MG tablet 80 mg PO QHS glipizide PO DAILY pioglitazone 30 mg tablet 30 mg PO DAILY tizanidine 4 mg tablet 4 mg PO Q12H levothyroxine 150 mcg tablet gabapentin 600 mg tablet 600 mg PO Q8H Primary Care Provider: Danette Levine NP Referrals: Danette Levine NP, [employer] [Primary Care Provider] - 1-2 Weeks Disposition Disposition: Home, Self Care
[2023-07-17 16:28] VITALS: BP 162/78; PULSE 90; RESP 20; O2SAT 98
[2023-07-17] MEDS: 0.9% Normal Saline 1,000 ML 1000 ML IV (16:32)
[2023-07-17 16:40] LABS: Absolute Lymphocyte Count 2.43 X10^3/uL (0.83-4.51); Absolute Neutrophil Count 3.1 X10^3/uL (2.0-7.7); Basophil# 0.05 X10^3/uL; Basophil% 0.8 % (0-1); Eosinophil# 0.15 X10^3/uL; Eosinophils% 2.4 % (0-5); Hematocrit 43.4 % (37-47); Hemoglobin 13.7 g/dL (12.0-15.0); Lymphocyte # 2.43 X10^3/ul (0.83-4.51); Lymphocyte % 38.3 % (19-41); Mean Corp Hgb Conc 31.6 g/dL (32-36); Mean Corpuscular Hgb 28.9 pg (27.0-32.0); Mean Corpuscular Volume 91.6 fL (81-99); Mean Platelet Vol. 9.9 fl (6.2-12.0); Monocyte# 0.52 X10^3/uL; Monocyte% 8.2 % (0-10); NRBC Flagged by Analyzer 0 % (0-5); Neutrophil # 3.14 X10^3/uL (2.7-7.7); Neutrophil % 49.4 % (47-70); Platelet Count 281 K/mm3 (150-450); RBC Distribution Width SD 47.5 fl (35.1-43.9); Red Blood Count 4.74 M/mm3 (4.2-5.4); White Blood Count 6.4 K/mm3 (4.4-11.0)
--- NOTE | 2023-07-17 16:40 | RAD_ITS ---
EXAM: XR CHEST, 1 VIEW CLINICAL INDICATION: weakness TECHNIQUE: Frontal view of the chest. COMPARISON: No relevant prior studies available. FINDINGS: LUNGS AND PLEURAL SPACES: Unremarkable. No consolidation or edema. No pneumothorax. No effusion. HEART: Unremarkable. Cardiac silhouette not enlarged. MEDIASTINUM: Central airways and mediastinal contour are unremarkable. BONES/JOINTS: Unremarkable. SOFT TISSUES: Unremarkable. RAD/Chest 1 View (Portable) IMPRESSION: No radiographic evidence of acute cardiopulmonary disease. Electronically Signed: Luis Jerez MD at 17:35 EDT ,
[2023-07-17 16:41] LABS: Bedside Glucose 208 mg/dL (74-106)
[2023-07-17 16:49] LABS: Anion Gap 5 (5-15); BUN 11 mg/dL (7-18); BUN/Creat Ratio 13.3 RATIO (10-20); Calcium,Total 9.2 mg/dL (8.5-10.1); Chloride 109 mmol/L (98-107); Creatinine, Serum 0.82 mg/dL (0.55-1.02); EST Glomerular Filtration Rate 73 mL/min (>60); Est Glom Filt Rate - Afr Amer 89 mL/min (>60); Estimated Creatinine Clearance 59.91 ml/min; Glucose 195 mg/dL (74-106); Potassium 3.5 mmol/L (3.5-5.1); Sodium Level 141 mmol/L (136-145)
[2023-07-17 17:01] LABS: Hemoglobin A1c 7.6 % (3.8-5.6)
[2023-07-17 17:53] LABS: Mucous, Urine 0 SEEN /hpf (<or=2+); Red Blood Cells-Urine 0 SEEN /hpf (0-5)
[2023-07-17 17:54] LABS: Color, Urine Yellow (Yellow); Glucose, Dipstick 1000 mg/dl (Normal); Ketone-Dipstick 5 mg/dl (Negative); Leukocyte Esterase-Dipstick 25 /ul (Negative); Nitrite-Dipstick Negative (Negative); Occult Blood-Urine Negative /ul (Negative); Protein-Dipstick 15 mg/dl (Negative); Specific Gravity, Urine 1.025 (1.002-1.030); Urine Bilirubin Dipstick Negative (Negative); Urine Clarity Clear (Clear); Urine Urobilinogen 1 mg/dl (Normal)
[2023-07-17] MEDS: 0.9% Normal Saline 1,000 ML 150 ML IV (18:08)
[2023-07-17 18:18] LABS: Bacteria 1+ /hpf (None Seen); Squamous Epithelial Cells - UA 0-5 SEEN /hpf (5-10); White Blood Cells 0-5 SEEN /hpf (0-5)
[2023-07-17 18:36] VITALS: BP 152/74; PULSE 72; RESP 20; O2SAT 98
[2023-07-17 19:23] LABS: Bedside Glucose 106 mg/dL (74-106)
== END 2023-07-17 19:39 | disposition home or self-care (01) ==
PROVIDERS: Emergency Provider Emergency Medicine; PCP Nurse Practitioner Family; Visit Provider Emergency Medicine
DX: E11.65 Type 2 diabetes mellitus with hyperglycemia (principal); I10 Essential (primary) hypertension; E78.5 Hyperlipidemia, unspecified; E07.9 Disorder of thyroid, unspecified; Z79.84 Long term (current) use of oral hypoglycemic drugs; Z79.890 Hormone replacement therapy; Z79.899 Other long term (current) drug therapy; Z87.891 Personal history of nicotine dependence
CPT/HCPCS: 71045; 80048; 81001; 82009; 82962; 83036; 85025; 93005; 96360; 96361; 99283; J7030; A4216

== ENCOUNTER 2023-09-11 16:39 | Emergency (ER) | payer MEDICARE, SELFPAY ==
[2023-09-11 16:45] VITALS: BP 144/77; PULSE 97; RESP 18; TEMP 36.1; O2SAT 100
[2023-09-11 16:49] VITALS: BMI 34.9
--- NOTE | 2023-09-11 17:19 | EDS_ITS ---
HPI History of Present Illness Chief Complaint: Hypertension [facility] Medical History Abnormal bruising Anxiety Arthritis Asthma Bilateral lower back pain Chronic neck and back pain Depression Diabetes Diarrhea Difficulty balancing when standing Fatigue Hay fever HTN (hypertension) Hyperlipemia Knee pain Numbness and tingling Rheumatoid arthritis Suprapubic pain Thyroid disease Type 2 diabetes mellitus URI (upper respiratory infection) Home Medications lisinopril 40 mg tablet 20 mg PO BID 02/26/16 [History Last Taken 10/03/20] metformin 1,000 mg tablet 1,000 mg PO BID 02/26/16 [History Last Taken 10/03/20] atorvastatin 20 mg tablet 80 mg PO QHS 09/28/20 [History Last Taken 10/03/20] celecoxib 100 mg capsule 100 mg PO Q24H 01/27/23 [History Last Taken Unknown] gabapentin 600 mg tablet 600 mg PO Q8H 07/17/23 [History Last Taken Unknown] glipizide PO DAILY 07/17/23 [History Last Taken Unknown] levothyroxine 150 mcg tablet 150 mcg PO DAILY 07/17/23 [History Last Taken Unknown] pioglitazone 30 mg tablet 30 mg PO DAILY 07/17/23 [History Last Taken Unknown] tizanidine 4 mg tablet 4 mg PO Q12H 07/17/23 [History Last Taken Unknown] dulaglutide 1.5 mg/0.5 mL subcutaneous pen injector (Trulicity) 1.5 mg subcut QWEEK 09/11/23 [History Last Taken Unknown] Allergy/AdvReac Type Severity Reaction Status Date / Time venom-honey bee Allergy Severe Anaphylaxis Verified 09/11/23 16:46 prednisone AdvReac Mild [place] out Verified 09/11/23 16:46 of it Family History Daughter Asthma Father Cancer Arthritis Mother Heart disease Arthritis Surgical History History of History of throat surgery Hx of dilation and curettage Hx of tonsillectomy Social History household members: spouse housing: house Smoking Status: Former smoker second hand exposure: No alcohol intake: current alcohol intake frequency: holidays/special occasions only substance use type: does not use caffeine: Yes what type of physical activity do you participate in: none frequency: does not exercise do you feel safe at home: Yes EXAM Physical Exam Const Vital Signs: 09/11/23 16:45 09/11/23 16:50 09/11/23 18:08 Temperature 96.9 F L Temperature Source Temporal Pulse Rate 97 Respiratory Rate 18 Respiratory Effort Normal Blood Pressure 144/77 H Blood Pressure Mean 99 Pulse Ox 100 95 Oxygen Delivery Method Room Air Room Air 09/11/23 18:08 09/11/23 19:43 Temperature Temperature Source Pulse Rate 91 Respiratory Rate 18 23 H Respiratory Effort Blood Pressure 143/66 H 119/62 Blood Pressure Mean 91 81 Pulse Ox 94 99 Oxygen Delivery Method Room Air MDM MDM MDM Narrative Medical decision making narrative: HISTORY OF PRESENT ILLNESS: 67-year-old female here with concern for elevated blood pressure. 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 She endorsed dizziness, felt off balance, complains of generalized weakness, nausea. NOtes at this time her BP was 190/90. Notes she take lisinopril 20mg BID. Notes compliance. Notes symptoms resolved. REVIEW OF SYSTEMS: Pertinent positives: dizziness,nausea, weakness Pertinent negatives: focal weakness, visual changes, syncope, CP, SOB PHYSICAL EXAM: Nursing triage notes reviewed, Vital signs reviewed Constitutional: please see mdm HENT: MMM, no nystagmus, negative test of skew Eyes: Pupils equal round and reactive to light, Extraocular muscles intact Neck: No stridor, no JVD, full neck ROM Lungs: Clear to auscultation, No wheezing or rales. No increased work of breathing, no conversational dyspnea, no accessory muscle use, no nasal flaring. No respiratory distress noted Heart: Regular rate and rhythm, No murmurs, No rubs and No gallops, 2+ distal pulses (radial, femoral, posterior tibial) in all extremities Abdomen: Soft, there is no tenderness, rigidity, rebound or guarding, no obvious peritoneal signs, no palpable pulsatile abdominal masses, no auscultated abdominal bruit : No CVAT Extremities: No edema Neuro: Alert and oriented x3, neuro exam at baseline, cranial nerves II through XII are intact. No pain with extraocular muscle movement. There is negative test of skew. 5 of 5 strength in upper and lower extremities in flexion extension. Intact sensation to light touch in upper and lower extremity dermatomes. No truncal or extremity ataxia. No dysdiadochokinesia. Normal gait. 2+ reflexes in upper and lower extremities. No meningeal signs. Negative Babinski. NIH of 0. Skin: No rash or lesions noted MEDICAL DECISION MAKING: Chief Complaint: Elevated BP, Dizziness External records reviewed: Prior ED visit reviewed: Last ED visit in July 2023 for hyperglycemia Factors affecting care: Hypertension on lisinopril, type 2 diabetes, hyperlipidemia, thyroid disease, Social determinants of health: Alcohol intake, former History obtained from others: none Consults: none MDM Narrative: Patient was hemodynamically stable, afebrile, nontoxic-appearing. Exam without focal neurologic deficits. No focal cardiopulmonary normalities. I considered the following differential diagnosis: Anemia, arrhythmia, electrolyte normality, dehydration, posterior circulation CVA/TIA, I considered CVA/TIA with the patient had no focal neurologic deficits and NIH of 0. Symptoms likely secondary to uncontrolled blood pressure. ALL IMAGES (IF OBTAINED) HAVE BEEN PERSONALLY REVIEWED AND INTERPRETED BY MYSELF. Normal sinus rhythm, right axis deviation, right bundle branch block, no obvious STEMI CBC without leukocytosis, severe anemia, no thrombocytopenia. BMP with mild hypokalemia, no circulatory mass, no anion gap or BETSEY Troponin is negative, no evidence of myocardial ischemia BNP within normal limits I have personally reviewed the patient's chest x-ray. Chest x-ray is unremarkable for pulmonary edema, pneumothorax, pneumonia or focal cardiopulmonary abnormality. The synthesis of the patient's history, physical exam and labs are NOT consistent acute life or limb etiology. Patient symptoms likely secondary to uncontrolled blood pressure. Recommended outpatient evaluation with her primary care physician. The patient and/or family, caregivers express understanding. The patient and/or family, caregivers agrees with the plan. Shared decision making: I will have a discussion with the patient and or visitors regarding risk/benefits of further testing or admission. They will be made aware of of the risk/benefits inherent in this decision they will be given the opportunity to voice understanding. Total critical care time today provided was at least 0 minutes. This excludes separately billable procedures. Critical care time (if documented) is secondary to the patient having high probability of clinically significant/life threatening deterioration in the patient's condition which required my urgent intervention. Impression: 1. Uncontrolled hypertension 2. Dizziness 3. Nausea Dispo: Discharge Lab Data Attestation: I reviewed the patient's lab results. Labs: Laboratory Results - last 24 hr 09/11/23 16:59 WBC 7.6 RBC 4.90 Hgb 14.3 Hct 44.3 MCV 90.4 MCH 29.2 MCHC 32.3 RDW Std Deviation 46.1 H RDW Coeff of Leo 13.8 Plt Count 314 MPV 10.5 Immature Gran % (Auto) 0.500 Neut % (Auto) 56.8 Lymph % (Auto) 33.6 [place] % (Auto) 7.8 Eos % (Auto) 0.8 Baso % (Auto) 0.5 Absolute Neuts (auto) 4.3 Absolute Lymphs (auto) 2.56 Nucleated RBC % 0 Sodium 139 Potassium 3.4 L Chloride 105 Carbon Dioxide 27.0 Anion Gap 7 BUN 17 Creatinine 0.80 Estim Creat Clear Calc 61.40 Est GFR (MDRD) Af Amer 92 Est GFR (MDRD) Non-Af 76 BUN/Creatinine Ratio 21.4 H Glucose 110 H Calcium 9.9 Troponin I High Sens 5 B-Natriuretic Peptide 2.7 Radiography Diagnostic Testing: Clinical Impression(s) from Imaging Studies Chest X-Ray 09/11/23 17:34 IMPRESSION: Normal x-ray examination of the chest. Electronically Signed: Danny Platt MD at 17:45 EDT , Discharge Plan Triage Chief Complaint: Hypertension ED Provider: Paolo Gomes Dx/Rx/DC Orders Instructions: ED High Blood Pressure Hypertension Prescriptions: No Action celecoxib 100 mg capsule 100 mg PO Q24H metformin 1,000 MG tablet 1,000 mg PO BID Patient Comments: BLOOD SUGAR lisinopril 40 MG tablet 20 mg PO BID Patient Comments: BLOOD PRESSURE atorvastatin 20 MG tablet 80 mg PO QHS glipizide PO DAILY pioglitazone 30 mg tablet 30 mg PO DAILY tizanidine 4 mg tablet 4 mg PO Q12H levothyroxine 150 mcg tablet 150 mcg PO DAILY gabapentin 600 mg tablet 600 mg PO Q8H Trulicity 1.5 mg/0.5 mL pen injector 1.5 mg subcut QWEEK Primary Care Provider: Danette Levine NP Referrals: Danette Levine NP, [employer] ENGINEER-C [Primary Care Provider] - Activity Restrictions/Additional Instructions: Thank you for trusting us with your care today! Please take Tylenol (2 pills, 650 mg), ibuprofen (2 pills, 400 mg) every 6 hours as needed for pain and fever control. Please return to the emergency department if your symptoms change or worsen. Please follow with your primary care physician for further outpatient evaluation and management. Disposition Disposition: Home, Self Care Discharge Date/Time: 09/11/23 19:44
--- NOTE | 2023-09-11 17:23 | EKG12_ITS ---
Test Reason : HIGH BP Blood Pressure : / mmHG Vent. Rate : 094 BPM Atrial Rate : 094 BPM P-R Int : 164 ms QRS Dur : 128 ms QT Int : 384 ms P-R-T Axes : 025 269 028 degrees QTc Int : 480 ms Normal sinus rhythm Right bundle branch block Possible Lateral infarct , age undetermined Abnormal ECG Confirmed by AYALA HURD, MARIETTA ([id number]), medical editor AICHA SWENSON ([id number]) on 09/16/2023 7:56:24 AM Referred By: Confirmed By:AMRIETTA CAI MD
--- NOTE | 2023-09-11 17:34 | RAD_ITS ---
STUDY: X-RAY CHEST REASON FOR EXAM: Female, 67 years old. dizziness, SOB TECHNIQUE: Single AP portable view of the chest. COMPARISON: 07/17/2023. FINDINGS: The lungs are clear and expanded. There is no demonstrated pleural abnormality. Normal size heart. Normal mediastinum and karson. Normal visualized pulmonary arteries. Normal visualized aortic arch and descending thoracic aorta. Normal visualized thoracic spine. Normal visualized ribs, clavicles, and shoulders. There is no demonstrated abnormality of the visualized soft tissue structures of the upper abdomen. RAD/Chest 1 View (Portable) IMPRESSION: Normal x-ray examination of the chest. Electronically Signed: Danny Platt MD at 17:45 EDT ,
[2023-09-11 17:41] LABS: Absolute Lymphocyte Count 2.56 X10^3/uL (0.83-4.51); Absolute Neutrophil Count 4.3 X10^3/uL (2.0-7.7); Basophil# 0.04 X10^3/uL; Basophil% 0.5 % (0-1); Eosinophil# 0.06 X10^3/uL; Eosinophils% 0.8 % (0-5); Hematocrit 44.3 % (37-47); Hemoglobin 14.3 g/dL (12.0-15.0); Lymphocyte # 2.56 X10^3/ul (0.83-4.51); Lymphocyte % 33.6 % (19-41); Mean Corp Hgb Conc 32.3 g/dL (32-36); Mean Corpuscular Hgb 29.2 pg (27.0-32.0); Mean Corpuscular Volume 90.4 fL (81-99); Mean Platelet Vol. 10.5 fl (6.2-12.0); Monocyte# 0.59 X10^3/uL; Monocyte% 7.8 % (0-10); NRBC Flagged by Analyzer 0 % (0-5); Neutrophil # 4.32 X10^3/uL (2.7-7.7); Neutrophil % 56.8 % (47-70); Platelet Count 314 K/mm3 (150-450); RBC Distribution Width CV 13.8 % (11.6-14.6); RBC Distribution Width SD 46.1 fl (35.1-43.9); White Blood Count 7.6 K/mm3 (4.4-11.0)
[2023-09-11 18:00] LABS: BNP,B-Type NATRIURETIC PEPTIDE 2.7 pg/mL (0-100)
[2023-09-11 18:04] LABS: Anion Gap 7 (5-15); BUN 17 mg/dL (7-18); BUN/Creat Ratio 21.4 RATIO (10-20); Calcium,Total 9.9 mg/dL (8.5-10.1); Chloride 105 mmol/L (98-107); EST Glomerular Filtration Rate 76 mL/min (>60); Est Glom Filt Rate - Afr Amer 92 mL/min (>60); Glucose 110 mg/dL (74-106); Potassium 3.4 mmol/L (3.5-5.1); Sodium Level 139 mmol/L (136-145); Troponin-I HS 5 pg/mL (3.0-54.0)
[2023-09-11] MEDS: 0.9% Normal Saline (500mL Bag) 500 ML 999 ML IV (18:07)
[2023-09-11 18:08] VITALS: BP 143/66; PULSE 91; RESP 18; O2SAT 94; O2SAT 95
[2023-09-11 19:43] VITALS: BP 119/62; RESP 23; O2SAT 99
== END 2023-09-11 19:44 | disposition home or self-care (01) ==
PROVIDERS: Emergency Provider Emergency Medicine; PCP Nurse Practitioner Family; Visit Provider Emergency Medicine
DX: I10 Essential (primary) hypertension (principal); M06.9 Rheumatoid arthritis, unspecified; E11.9 Type 2 diabetes mellitus without complications; E78.5 Hyperlipidemia, unspecified; R11.0 Nausea; E87.6 Hypokalemia; E07.9 Disorder of thyroid, unspecified; R42 Dizziness and giddiness; Z79.84 Long term (current) use of oral hypoglycemic drugs; Z79.890 Hormone replacement therapy; Z79.899 Other long term (current) drug therapy; Z87.891 Personal history of nicotine dependence
CPT/HCPCS: 71045; 80048; 83880; 84484; 85025; 93005; 96360; 99285; J7040

== ENCOUNTER 2023-09-30 11:37 | Emergency (ER) | payer MEDICARE, SELFPAY ==
[2023-09-30 11:38] VITALS: BP 166/85; PULSE 95; RESP 18; TEMP 36; O2SAT 100; BMI 32.9
--- NOTE | 2023-09-30 11:56 | CT_ITS ---
STUDY: CT ABDOMEN AND PELVIS WITHOUT CONTRAST REASON FOR EXAM: Female, 67 years old. Kidney Stone. UTI. RADIATION DOSAGE (If Supplied By Facility): CTDIvol = ( 18.20 ) mGy, DLP = ( 844.45 ) mGycm TECHNIQUE: Transaxial images were obtained from the dome of the diaphragm to the symphysis pubis without oral contrast, and without intravenous contrast. Sagittal and coronal images were reconstructed. Individualized dose optimization techniques were used for this CT. COMPARISON: Comparison is made with prior study August 08, 2022. FINDINGS: Mild degree of increased markings at the right lung base suggestive of atelectasis and/or scarring. Coronary artery calcification. Normal liver. Small layering gallstones. Normal spleen. Normal pancreas. Normal bilateral adrenal glands. Mild right hydronephrosis and right hydroureter due to a 3 mm calculus in the distal portion of the right ureter just proximal to the ureterovesical junction. I also suspect a punctate calculus in the distal portion of the right ureter adjacent to the larger calculus. Nonobstructive 3 mm cuts in the lower pole calyx of the left kidney. Left renal cyst. This measures 4.1 cm. Normal visualized stomach. Normal small intestine. Normal colon. The appendix is visualized and appears normal. There is diffuse atherosclerotic calcification of the abdominal aorta and its major visceral branches., without a demonstrated aneurysm. Normal inferior vena cava. Normal retroperitoneum. Normal urinary bladder. There is a small umbilical hernia containing fat. Normal osseous structures. CT/Abdomen/Pelvis without Cont IMPRESSION: 2 adjacent small atelectasis seen in the distal portion of the right ureter with a mild degree of right hydronephrosis and right hydroureter. Nonobstructive calculi seen in lower pole collection of the left kidney. Left renal cyst. Electronically Signed: Jose Palencia MD at 13:42 EDT ,
--- NOTE | 2023-09-30 11:57 | EDS_ITS ---
HPI History of Present Illness Chief Complaint: Complaint Informant: patient Narrative Narrative: 67-year-old presenting the emergency room with urinary symptoms. Patient states that last week she developed urinary pressure burning frequency and presented to an out lying urgent care where she was diagnosed with a UTI. She states that she has passed at least 3 kidney stones since that time and has been taking Macrobid. She notes continued symptoms now including continence. She denies any fever. She states that the skin around the labia is very irritated. [facility] Medical History Abnormal bruising Anxiety Arthritis Asthma Bilateral lower back pain Chronic neck and back pain Depression Diabetes Diarrhea Difficulty balancing when standing Fatigue Hay fever HTN (hypertension) Hyperlipemia Knee pain Numbness and tingling Rheumatoid arthritis Suprapubic pain Thyroid disease Type 2 diabetes mellitus URI (upper respiratory infection) Home Medications lisinopril 40 mg tablet 20 mg PO BID 02/26/16 [History Last Taken 10/03/20] metformin 1,000 mg tablet 1,000 mg PO BID 02/26/16 [History Last Taken 10/03/20] atorvastatin 20 mg tablet 80 mg PO QHS 09/28/20 [History Last Taken 10/03/20] celecoxib 100 mg capsule 100 mg PO Q24H 01/27/23 [History Last Taken Unknown] gabapentin 600 mg tablet 600 mg PO Q8H 07/17/23 [History Last Taken Unknown] glipizide PO DAILY 07/17/23 [History Last Taken Unknown] levothyroxine 150 mcg tablet 150 mcg PO DAILY 07/17/23 [History Last Taken Unknown] pioglitazone 30 mg tablet 30 mg PO DAILY 07/17/23 [History Last Taken Unknown] tizanidine 4 mg tablet 4 mg PO Q12H 07/17/23 [History Last Taken Unknown] dulaglutide 1.5 mg/0.5 mL subcutaneous pen injector (Trulicity) 1.5 mg subcut QWEEK 09/11/23 [History Last Taken Unknown] nitrofurantoin monohydrate/macrocrystals 100 mg capsule 1 cap PO Q12H 7 days #14 caps 09/25/23 [Rx Last Taken Unknown] hydrocodone-acetaminophen 5-325mg 5mg-325mg 1 tab PO Q6H PRN PRN Pain 3 days #12 TABLETS 09/30/23 [Rx Last Taken Unknown] Allergy/AdvReac Type Severity Reaction Status Date / Time venom-honey bee Allergy Severe Anaphylaxis Verified 09/30/23 11:38 adhesive tape Allergy Mild Rash Verified 09/30/23 11:38 Family History Daughter Asthma Father Cancer Arthritis Mother Heart disease Arthritis Surgical History History of History of throat surgery Hx of dilation and curettage Hx of tonsillectomy Social History household members: spouse housing: house Smoking Status: Former smoker second hand exposure: No alcohol intake: current alcohol intake frequency: holidays/special occasions only substance use type: does not use caffeine: Yes what type of physical activity do you participate in: none frequency: does not exercise do you feel safe at home: Yes ROS ROS ED Constitutional Constitutional ED: Denies chills, fever(s) or weight loss Eyes Eyes: Denies change in vision or diplopia ENT ENT ED: Denies ear pain, rhinorrhea or sore throat Cardiovascular Cardiovascular: Denies chest pain, orthopnea, palpitations or racing heartbeat Respiratory/Chest Respiratory/Chest: Denies cough, dyspnea or orthopnea Gastrointestinal Gastrointestinal: Reports other Details: Right flank pain ; Denies abdominal pain, diarrhea, nausea or vomiting Genitourinary Genitourinary ED: Reports dysuria, hematuria, urinary frequency and other Details: Urinary incontinence Musculoskeletal Musculoskeletal: Denies arthralgias or myalgias Integumentary Denies abscess or rash Neurologic Neurologic: Denies headache(s) or weakness Psychiatric Psychiatric: Denies anxiety, depression, suicidal ideation or suicidal thoughts Endocrine Endocrinology: Denies polydipsia, polyphagia or polyuria Allergic/Immunologic Allergic/Immunologic ED: Denies mouth swelling, tongue swelling or urticaria EXAM Physical Exam Const Vital Signs: 09/30/23 11:38 Temperature 96.8 F L Temperature Source Temporal Pulse Rate 95 Respiratory Rate 18 Blood Pressure 166/85 H Blood Pressure Mean 112 Pulse Ox 100 Oxygen Delivery Method Room Air Positive well nourished, well developed and obese General Appearance ED: well developed Nutritional Appearance: obese HEENT Reports normocephalic, head/scalp atraumatic and moist mucous membranes Eyes PERRL and EOMs intact bilaterally Neck no lymphadenopathy, supple and no JVD Resp normal respiratory effort and clear to auscultation bilaterally Cardio regular rate, regular rhythm and no murmurs GI normal to inspection, nondistended, normoactive bowel sounds and non-tender Palpation: soft Narrative: External pelvic exam was performed in the presence of female nurse (Love). No obvious vaginal discharge or lesions or irritation/erythema was noted. Back/Spine no CVA tenderness and normal ROM Extremity normal to inspection General Extremety ED: Negative for edema General Extremity: Negative for edema Neuro oriented x3 and CN's II-XII intact bilaterally Sensorium / Orientation: alert Motor Exam: strength 5/5 throughout Psych mental status grossly normal Mood & Affect: Negative for depressed or tearful Skin no rashes or lesions noted and no wounds MDM MDM MDM Narrative Medical decision making narrative: White count is normal creatinine normal. Urinalysis showed 10-25 red cells no bacteria no white cells no squamous cells. CT abdomen pelvis demonstrated ureteral calculus. Please see radiology read for details. Pelvic examination does not demonstrate any obvious irritation discharge or sores. She maintains that when she urinates there is burning of the skin not the urethra. We can use some lidocaine jelly symptomatically. I can write for some pain medicine for the kidney stones. She can continue her Macrobid. Would recommend urologic follow-up. Patient saw either Dr. Ang or Dr. Ornelas. She does not quite recall. She is interested in seeing a female urologist and I can refer her to Dr. Tiffanie Linda. Lab Data Attestation: I reviewed the patient's lab results. Labs: Laboratory Results - last 24 hr 09/30/23 12:20 WBC 6.1 RBC 4.94 Hgb 14.6 Hct 44.6 MCV 90.3 MCH 29.6 MCHC 32.7 RDW Std Deviation 47.8 H RDW Coeff of Leo 14.6 Plt Count 292 MPV 9.6 Immature Gran % (Auto) 0.300 Neut % (Auto) 57.8 Lymph % (Auto) 32.0 [place] % (Auto) 7.4 Eos % (Auto) 1.8 Baso % (Auto) 0.7 Absolute Neuts (auto) 3.5 Absolute Lymphs (auto) 1.95 Nucleated RBC % 0 Sodium 139 Potassium 3.6 Chloride 107 Carbon Dioxide 26.0 Anion Gap 6 BUN 7 Creatinine 0.85 Estim Creat Clear Calc 57.79 Est GFR (MDRD) Af Amer 86 Est GFR (MDRD) Non-Af 71 BUN/Creatinine Ratio 8.2 L Glucose 121 H Calcium 10.1 Urine Color Yellow Urine Clarity Clear Urine pH 5.0 Ur Specific [place] 1.025 Urine Protein 30 H Urine Glucose (UA) Normal Urine Ketones 5 H Urine Occult Blood 250 H Urine Nitrite Negative Urine Bilirubin Negative Urine Urobilinogen 1 H Ur Leukocyte Esterase 25 H Urine RBC 10-25 SEEN Urine WBC 0 SEEN Ur Squamous Epith Cells 0 SEEN Urine Bacteria 0 SEEN Urine Mucus 0 SEEN Radiography Diagnostic Testing: Clinical Impression(s) from Imaging Studies Abdomen/Pelvis CT 09/30/23 11:56 IMPRESSION: 2 adjacent small atelectasis seen in the distal portion of the right ureter with a mild degree of right hydronephrosis and right hydroureter. Nonobstructive calculi seen in lower pole collection of the left kidney. Left renal cyst. Electronically Signed: Jose Palencia MD at 13:42 EDT , Discharge Plan Triage Chief Complaint: Complaint ED Provider: Jorge Bhardwaj Dx/Rx/DC Orders Clinical Impression: Dysuria, Ureterolithiasis Instructions: ED Kidney Stone w/ Colic Prescriptions: New hydrocodone-acetaminophen [hydrocodone-acetaminophen] 5-325 mg tablet 1 tab PO Q6H PRN PRN (Reason: Pain) 3 Days Qty: 12 0RF No Action celecoxib 100 mg capsule 100 mg PO Q24H nitrofurantoin monohyd/m-cryst 100 mg capsule 1 cap PO Q12H 7 Days Qty: 14 0RF Rx Instructions: administer with a meal/food; swallow whole; do not open, crush, dissolve , or chew metformin 1,000 MG tablet 1,000 mg PO BID Patient Comments: BLOOD SUGAR lisinopril 40 MG tablet 20 mg PO BID Patient Comments: BLOOD PRESSURE atorvastatin 20 MG tablet 80 mg PO QHS glipizide PO DAILY pioglitazone 30 mg tablet 30 mg PO DAILY tizanidine 4 mg tablet 4 mg PO Q12H levothyroxine 150 mcg tablet 150 mcg PO DAILY gabapentin 600 mg tablet 600 mg PO Q8H Trulicity 1.5 mg/0.5 mL pen injector 1.5 mg subcut QWEEK Primary Care Provider: Danette Leivne NP Referrals: Isa Kyle MD [Med Staff - Active Staff] - As soon as possible Danette Levine NP, TONGER-C [Primary Care Provider] - Activity Restrictions/Additional Instructions: Please use the topical lidocaine jelly as needed prior to urination to help ease the pain. Disposition Disposition: Home, Self Care
[2023-09-30 12:27] LABS: Bacteria 0 SEEN /hpf (None Seen); Mucous, Urine 0 SEEN /hpf (<or=2+); Squamous Epithelial Cells - UA 0 SEEN /hpf (5-10); White Blood Cells 0 SEEN /hpf (0-5)
[2023-09-30 12:28] LABS: Color, Urine Yellow (Yellow); Glucose, Dipstick Normal (Normal); Ketone-Dipstick 5 mg/dl (Negative); Leukocyte Esterase-Dipstick 25 /ul (Negative); Nitrite-Dipstick Negative (Negative); Occult Blood-Urine 250 /ul (Negative); Protein-Dipstick 30 mg/dl (Negative); Specific Gravity, Urine 1.025 (1.002-1.030); Urine Bilirubin Dipstick Negative (Negative); Urine Clarity Clear (Clear); Urine Urobilinogen 1 mg/dl (Normal)
[2023-09-30 12:31] LABS: Absolute Lymphocyte Count 1.95 X10^3/uL (0.83-4.51); Absolute Neutrophil Count 3.5 X10^3/uL (2.0-7.7); Basophil# 0.04 X10^3/uL; Basophil% 0.7 % (0-1); Eosinophil# 0.11 X10^3/uL; Eosinophils% 1.8 % (0-5); Hematocrit 44.6 % (37-47); Hemoglobin 14.6 g/dL (12.0-15.0); Lymphocyte # 1.95 X10^3/ul (0.83-4.51); Mean Corp Hgb Conc 32.7 g/dL (32-36); Mean Corpuscular Hgb 29.6 pg (27.0-32.0); Mean Corpuscular Volume 90.3 fL (81-99); Mean Platelet Vol. 9.6 fl (6.2-12.0); Monocyte# 0.45 X10^3/uL; Monocyte% 7.4 % (0-10); NRBC Flagged by Analyzer 0 % (0-5); Neutrophil # 3.53 X10^3/uL (2.7-7.7); Neutrophil % 57.8 % (47-70); Platelet Count 292 K/mm3 (150-450); RBC Distribution Width CV 14.6 % (11.6-14.6); RBC Distribution Width SD 47.8 fl (35.1-43.9); Red Blood Count 4.94 M/mm3 (4.2-5.4); White Blood Count 6.1 K/mm3 (4.4-11.0)
[2023-09-30 12:34] LABS: Red Blood Cells-Urine 10-25 SEEN /hpf (0-5)
[2023-09-30 12:42] LABS: Anion Gap 6 (5-15); BUN 7 mg/dL (7-18); BUN/Creat Ratio 8.2 RATIO (10-20); Calcium,Total 10.1 mg/dL (8.5-10.1); Chloride 107 mmol/L (98-107); Creatinine, Serum 0.85 mg/dL (0.55-1.02); EST Glomerular Filtration Rate 71 mL/min (>60); Est Glom Filt Rate - Afr Amer 86 mL/min (>60); Estimated Creatinine Clearance 57.79 ml/min; Glucose 121 mg/dL (74-106); Potassium 3.6 mmol/L (3.5-5.1); Sodium Level 139 mmol/L (136-145)
--- NOTE | 2023-09-30 15:02 | ED.RN ---
lidocaine jelly ordered by out of stock.Lidocaine urojet given, assembled and ready for use. Pt voices understanding on how use.
== END 2023-09-30 15:16 | disposition home or self-care (01) ==
PROVIDERS: Emergency Provider Emergency Medicine; PCP Nurse Practitioner Family; Visit Provider Emergency Medicine
DX: N13.2 Hydronephrosis with renal and ureteral calculous obstruction (principal); E11.9 Type 2 diabetes mellitus without complications; I10 Essential (primary) hypertension; R30.0 Dysuria; Z87.891 Personal history of nicotine dependence; E78.5 Hyperlipidemia, unspecified; N39.0 Urinary tract infection, site not specified
CPT/HCPCS: 74176; 80048; 81001; 85025; 99283; A4216

== ENCOUNTER 2023-10-01 21:26 | Observation (INO) | payer MEDICARE, SELFPAY ==
[2023-10-01 21:27] VITALS: BP 171/81; PULSE 95; RESP 16; TEMP 36.7; O2SAT 99; BMI 33.1
[2023-10-01 22:24] LABS: Absolute Lymphocyte Count 1.04 X10^3/uL (0.83-4.51); Absolute Neutrophil Count 8.4 X10^3/uL (2.0-7.7); Basophil# 0.05 X10^3/uL; Basophil% 0.5 % (0-1); Eosinophil# 0.05 X10^3/uL; Eosinophils% 0.5 % (0-5); Hematocrit 42.4 % (37-47); Hemoglobin 13.5 g/dL (12.0-15.0); Lymphocyte # 1.04 X10^3/ul (0.83-4.51); Lymphocyte % 10.2 % (19-41); Mean Corp Hgb Conc 31.8 g/dL (32-36); Mean Corpuscular Hgb 29.1 pg (27.0-32.0); Mean Corpuscular Volume 91.4 fL (81-99); Mean Platelet Vol. 9.9 fl (6.2-12.0); Monocyte# 0.65 X10^3/uL; Monocyte% 6.3 % (0-10); NRBC Flagged by Analyzer 0 % (0-5); Neutrophil # 8.41 X10^3/uL (2.7-7.7); Neutrophil % 82.1 % (47-70); Platelet Count 276 K/mm3 (150-450); RBC Distribution Width CV 14.6 % (11.6-14.6); Red Blood Count 4.64 M/mm3 (4.2-5.4); White Blood Count 10.2 K/mm3 (4.4-11.0)
[2023-10-01] MEDS: Ondansetron 4 MG/2 ML Vial IV (22:24)
[2023-10-01] MEDS: Ketorolac 30 MG/ML Syringe IV (22:26)
[2023-10-01] MEDS: 0.9% Normal Saline (1000mL) 1,000 ML 999 ML IV (22:27)
[2023-10-01 22:39] LABS: Anion Gap 6 (5-15); BUN 17 mg/dL (7-18); BUN/Creat Ratio 19.2 RATIO (10-20); Calcium,Total 9.6 mg/dL (8.5-10.1); Chloride 107 mmol/L (98-107); Creatinine, Serum 0.88 mg/dL (0.55-1.02); EST Glomerular Filtration Rate 68 mL/min (>60); Est Glom Filt Rate - Afr Amer 82 mL/min (>60); Estimated Creatinine Clearance 55.82 ml/min; Glucose 203 mg/dL (74-106); Potassium 3.5 mmol/L (3.5-5.1); Sodium Level 142 mmol/L (136-145)
[2023-10-01] MEDS: Morphine 4 MG/ML Syringe IV (23:06)
[2023-10-02] VITALS (8 sets, daily range): BP systolic 90–108; BP diastolic 47–73; PULSE 60–82; RESP 15–16; TEMP 36.1–37.6; O2SAT 95–98; BMI 33.8
--- NOTE | 2023-10-02 00:21 | EX.ED.DYSGE1 ---
HPI History of Present Illness Chief Complaint: Flank Pain Informant: patient Narrative Narrative: Is a 87-year-old female with past medical history type 2 diabetes hypertension hyperlipidemia who was seen yesterday secondary to dysuria and flank pain. At that time she was found to have a 3 mm stone in the right distal ureter with a secondary adjacent stone. She had no signs of acute kidney injury or urinary tract infection/urosepsis so was discharged home with Newberg. Patient states that she took the Newberg and that despite doing this the pain has steadily worsened and secondary to this she returns for repeat evaluation. [facility] Medical History Abnormal bruising Anxiety Arthritis Asthma Bilateral lower back pain Chronic neck and back pain Depression Diabetes Diarrhea Difficulty balancing when standing Fatigue Hay fever HTN (hypertension) Hyperlipemia Knee pain Numbness and tingling Rheumatoid arthritis Suprapubic pain Thyroid disease Type 2 diabetes mellitus URI (upper respiratory infection) Home Medications lisinopril 40 mg tablet 20 mg PO BID 02/26/16 [History Last Taken 10/03/20] metformin 1,000 mg tablet 1,000 mg PO BID 02/26/16 [History Last Taken 10/03/20] atorvastatin 20 mg tablet 80 mg PO QHS 09/28/20 [History Last Taken 10/03/20] celecoxib 100 mg capsule 100 mg PO Q24H 01/27/23 [History Last Taken Unknown] gabapentin 600 mg tablet 600 mg PO Q8H 07/17/23 [History Last Taken Unknown] glipizide PO DAILY 07/17/23 [History Last Taken Unknown] levothyroxine 150 mcg tablet 150 mcg PO DAILY 07/17/23 [History Last Taken Unknown] pioglitazone 30 mg tablet 30 mg PO DAILY 07/17/23 [History Last Taken Unknown] tizanidine 4 mg tablet 4 mg PO Q12H 07/17/23 [History Last Taken Unknown] dulaglutide 1.5 mg/0.5 mL subcutaneous pen injector (Trulicity) 1.5 mg subcut QWEEK 09/11/23 [History Last Taken Unknown] nitrofurantoin monohydrate/macrocrystals 100 mg capsule 1 cap PO Q12H 7 days #14 caps 09/25/23 [Rx Last Taken Unknown] hydrocodone-acetaminophen 5-325mg 5mg-325mg 1 tab PO Q6H PRN PRN Pain 3 days #12 TABLETS 09/30/23 [Rx Last Taken Unknown] Allergy/AdvReac Type Severity Reaction Status Date / Time venom-honey bee Allergy Severe Anaphylaxis Verified 10/01/23 21:30 adhesive tape Allergy Mild Rash Verified 10/01/23 21:30 Family History Daughter Asthma Father Cancer Arthritis Mother Heart disease Arthritis Surgical History History of History of throat surgery Hx of dilation and curettage Hx of tonsillectomy Social History household members: spouse housing: house Smoking Status: Former smoker second hand exposure: No alcohol intake: current alcohol intake frequency: holidays/special occasions only substance use type: does not use caffeine: Yes what type of physical activity do you participate in: none frequency: does not exercise do you feel safe at home: Yes ROS ROS ED Constitutional Constitutional ED: Denies chills or fever(s) ENT ENT ED: Denies sore throat Cardiovascular Cardiovascular: Denies chest pain Respiratory/Chest Respiratory/Chest: Denies cough or dyspnea Gastrointestinal Gastrointestinal: Reports abdominal pain and nausea; Denies diarrhea or vomiting Genitourinary Genitourinary ED: Reports dysuria and hematuria Musculoskeletal Musculoskeletal: Reports back pain; Denies myalgias Integumentary Denies rash Neurologic Neurologic: Denies headache(s) Hematologic/Lymphatic Hematologic/Lymphatic: Denies easy bleeding or easy bruising EXAM Physical Exam Const Vital Signs: 10/01/23 21:27 Temperature 98.1 F Temperature Source Temporal Pulse Rate 95 Respiratory Rate 16 Blood Pressure 171/81 H Blood Pressure Mean 111 Pulse Ox 99 Oxygen Delivery Method Room Air Positive well nourished, well developed and obese General Appearance ED: well developed; Negative for pallor Nutritional Appearance: obese HEENT HEENT Narrative: Normocephalic atraumatic Eyes PERRL and EOMs intact bilaterally General Eye ED: Negative for scleral icterus Neck supple Neck Narrative: No nuchal rigidity or meningeal sign Resp normal respiratory effort and clear to auscultation bilaterally Cardio regular rate and regular rhythm Rate: other Other Details: Heart is regular rate and rhythm without murmurs rubs or gallops Radial and carotid pulses are equal and symmetric GI non-distended GI Narrative: Abdomen is obese soft and nondistended with hypoactive bowel sounds. There is pain of the patient along the suprapubic to right lower abdomen without voluntary guarding or rigidity Auscultation: hypoactive bowel sounds Palpation: soft Back/Spine Back/Spine Narrative: Positive right CVA pain Extremity normal to inspection Neuro oriented x3 and CN's II-XII intact bilaterally Sensorium / Orientation: alert Psych mental status grossly normal Skin no rashes or lesions noted General Skin Exam: Negative for jaundice or pallor MDM MDM MDM Narrative Medical decision making narrative: Patient presented to the ER mildly hypertensive otherwise with stable vitals. Chart review revealed normal kidney function and no signs of urinary tract infection yesterday and CT scan showed the right-sided ureterolithiasis. Therefore this time I felt no need for repeat imaging but repeat blood work was obtained. This confirmed no severe electrolyte abnormality or signs of acute kidney injury. Patient was given IV fluids and Toradol and did not have any improvement of pain so morphine was added. Despite adding the morphine the patient's pain improved only minimally. Secondary to this I did discuss the case with urology on-call Dr. Lassiter. He agrees that at this time based on the patient's intractable pain that she can be kept in the hospital and that he will most likely perform surgery/stent placement in the morning. Secondary to the patient's complex medical conditions she will be admitted to medicine service. Medicine was contacted and they do agree to accept the patient at this time. History & Record Review Discussion w/independent historian: Patient Lab Data Attestation: I reviewed the patient's lab results. Labs: Laboratory Results - last 24 hr 10/01/23 22:19 WBC 10.2 RBC 4.64 Hgb 13.5 Hct 42.4 MCV 91.4 MCH 29.1 MCHC 31.8 L RDW Std Deviation 49.0 H RDW Coeff of Leo 14.6 Plt Count 276 MPV 9.9 Immature Gran % (Auto) 0.400 Neut % (Auto) 82.1 H Lymph % (Auto) 10.2 L Reagan % (Auto) 6.3 Eos % (Auto) 0.5 Baso % (Auto) 0.5 Absolute Neuts (auto) 8.4 H Absolute Lymphs (auto) 1.04 Nucleated RBC % 0 Sodium 142 Potassium 3.5 Chloride 107 Carbon Dioxide 29.0 Anion Gap 6 BUN 17 Creatinine 0.88 Estim Creat Clear Calc 55.82 Est GFR (MDRD) Af Amer 82 Est GFR (MDRD) Non-Af 68 BUN/Creatinine Ratio 19.2 Glucose 203 H Calcium 9.6 Management Discussion w/another healthcare provider: Hospitalist and Sr Technical Sales Consultant Discharge Plan Dx/Rx/DC Orders Clinical Impression: Kidney stone on right side, Type 2 diabetes mellitus, HTN (hypertension), Hyperlipemia, Renal colic, Intractable pain Disposition Disposition: Acute Care Hospital [facility]
--- NOTE | 2023-10-02 00:28 | HP.PCM.HOS_ITS ---
HPI - General General Date of Admission: 10/02/23 Date of Service: 10/02/23 Chief Complaint: Dysuria, flank pain, passing renal calculi, not improving. HPI Narrative The patient is a 67 y/o F w/ PMHx: Obesity, HTN, HLD, Diabetes mellitus type II, Anxiety and Depression, Hypothyroidism, Rheumatoid arthritis, Asthma, Former tobacco use who presents to the [facility] ED on 10/02/23 with history of 11 days of ongoing flank discomfort and pain in her groin region on the right described as intermittent cramping sensation and aching with associated nausea, bouts of emesis and chills without fever with decreased urinary frequency and some mild dysuria noting that she has passed several visible renal calculi specifically 2 on Friday with recent 09/30/23 most recently evaluation with CT imaging w/ noted 2 small adjacent calculi in the distal portion of the right ureter with mild degree of right hydronephrosis and right hydroureter with nonobstructive calculi also seen in the lower pole collection of the left kidney but given worsening pain 10/10 at its worst, currently upon evaluation 5/10 pain severity prompting ED return evaluation. Work-up in the ED included T96.8, heart 95, BP 166/85, respiratory rate 18, 100% on room air, CBC with WBC 10.2, hemoglobin 13.5, platelet 276 with left shift, BMP with glucose 203 otherwise not marked maru earing, no repeat imaging performed upon current presentation. Given intractable pain plan admission in ED did discuss concerns with urology Dr. Lassiter who noted intention to evaluate. In the ED patient ministered 1 L normal saline, Zofran 4 mg IV x1, morphine 4 mg IV x1, Toradol 30 mg IV x1. [facility] Medical History (Updated 10/02/23 @ 00:[address] Lula Alaniz MD) Anxiety and depression Arthritis Asthma Chronic neck and back pain Diabetes Difficulty balancing when standing Hay fever HTN (hypertension) Hyperlipemia Rheumatoid arthritis Thyroid disease Type 2 diabetes mellitus Home Medications lisinopril 40 mg tablet 20 mg PO BID 02/26/16 [History Last Taken 10/03/20] metformin 1,000 mg tablet 1,000 mg PO BID 02/26/16 [History Last Taken 10/03/20] atorvastatin 20 mg tablet 80 mg PO QHS 09/28/20 [History Last Taken 10/03/20] celecoxib 100 mg capsule 100 mg PO Q24H 01/27/23 [History Last Taken Unknown] gabapentin 600 mg tablet 600 mg PO Q8H 07/17/23 [History Last Taken Unknown] glipizide PO DAILY 07/17/23 [History Last Taken Unknown] levothyroxine 150 mcg tablet 150 mcg PO DAILY 07/17/23 [History Last Taken Unknown] pioglitazone 30 mg tablet 30 mg PO DAILY 07/17/23 [History Last Taken Unknown] tizanidine 4 mg tablet 4 mg PO Q12H 07/17/23 [History Last Taken Unknown] dulaglutide 1.5 mg/0.5 mL subcutaneous pen injector (Trulicity) 1.5 mg subcut QWEEK 09/11/23 [History Last Taken Unknown] nitrofurantoin monohydrate/macrocrystals 100 mg capsule 1 cap PO Q12H 7 days #14 caps 09/25/23 [Rx Last Taken Unknown] hydrocodone-acetaminophen 5-325mg 5mg-325mg 1 tab PO Q6H PRN PRN Pain 3 days #12 TABLETS 09/30/23 [Rx Last Taken Unknown] Allergy/AdvReac Type Severity Reaction Status Date / Time venom-honey bee Allergy Severe Anaphylaxis Verified 10/01/23 21:30 adhesive tape Allergy Mild Rash Verified 10/01/23 21:30 Family History Daughter Asthma Father Cancer Arthritis Mother Heart disease Arthritis Surgical History History of History of throat surgery Hx of dilation and curettage Hx of tonsillectomy Social History household members: spouse housing: house Smoking Status: Former smoker second hand exposure: No alcohol intake: current alcohol intake frequency: holidays/special occasions only substance use type: does not use caffeine: Yes what type of physical activity do you participate in: none frequency: does not exercise do you feel safe at home: Yes ROS ROS Narrative Admission Review of Systems: CONSTITUTIONAL: No weight loss, fever, + chills, weakness or fatigue. HEENT: Eyes: No visual loss, blurred vision, double vision or yellow sclerae. Ears, Nose, Throat: No hearing loss, sneezing, congestion, runny nose or sore throat. SKIN: No rash or itching, lesions, wounds. CARDIOVASCULAR: No chest pain, chest pressure or chest discomfort, palpitations, edema, orthopnea, syncopal events. RESPIRATORY: No shortness of breath, cough or sputum, wheezing, hemoptysis. GASTROINTESTINAL: + anorexia, nausea, vomiting. No diarrhea, abdominal pain, melena, BRBPR. GENITOURINARY: + Decreased urine output, dysuria, flank discomfort, right-sided NEUROLOGICAL: No headache, dizziness, syncope, paralysis, ataxia, numbness or tingling in the extremities, focal weakness, change in bowel or bladder control, seizure. MUSCULOSKELETAL: + muscle, back pain, joint pain or stiffness. HEMATOLOGIC: No anemia. + Bleeding or bruising. LYMPHATICS: No enlarged nodes. No history of splenectomy. PSYCHIATRIC: + history of depression or anxiety. ENDOCRINOLOGIC: No reports of sweating, cold or heat intolerance. No polyuria or polydipsia. ALLERGIES: + Asthma, rhinitis, history of bee venom anaphylaxis. Vital Signs Vital Signs Vital Signs: 10/01/23 21:27 Temperature 98.1 F Temperature Source Temporal Pulse Rate 95 Respiratory Rate 16 Blood Pressure 171/81 H Blood Pressure Mean 111 Pulse Ox 99 Oxygen Delivery Method Room Air Weight Weight: 199 lb Body Mass Index (BMI) 33.1 Physical Exam Narrative Physical Examination: General: Awake, alert, oriented x 3 and cooperative, seated upright in ED bed in no apparent distress, notes ongoing flank discomfort, currently rated 5 out of 10.. Skin: Normal color, normal turgor, no icterus, no cyanosis. HEENT: AT/NC, EOMI, PERRLA, dry MM, no carotid bruits or JVD noted. Lungs: CTA bilaterally, moderate effort, mild decrease BL bases, no rales, ronchi or wheezing. Heart: Regular rate and rhythm; no gallop, rub audible. Abdomen: Soft, NTTP except for some discomfort to palpation of the very distal r ight lower quadrant and right flank, ND, hyperactive BS, no appreciated HSM. Extremities: No cyanosis, no clubbing, mild ankle nonpitting edema. Neurological: Patient awake, alert, oriented as noted, cognitive function intact; pupils equally reactive to light and accommodation, cranial nerves grossly normal, moving all 4 extremities, no focal deficits, strength moderately globally decreased secondary to acute pain. Psychiatric: Affect appears fatigued, uncomfortable, no acute evidence of depressive or anxiety feelings but does have underlying history. Results Lab / Micro Data 10/01/23 22:19 10/01/23 22:19 Labs: Laboratory Results - last 24 hr 10/01/23 22:19: WBC 10.2, RBC 4.64, Hgb 13.5, Hct 42.4, MCV 91.4, MCH 29.1, MCHC 31.8 L, RDW Std Deviation 49.0 H, RDW Coeff of Leo 14.6, Plt Count 276, MPV 9.9, Immature Gran % (Auto) 0.400, Neut % (Auto) 82.1 H, Lymph % (Auto) 10.2 L, Monona % (Auto) 6.3, Eos % (Auto) 0.5, Baso % (Auto) 0.5, Absolute Neuts (auto) 8.4 H, Absolute Lymphs (auto) 1.04, Nucleated RBC % 0, Sodium 142, Potassium 3.5, Chloride 107, Carbon Dioxide 29.0, Anion Gap 6, BUN 17, Creatinine 0.88, Estim Creat Clear Calc 55.82, Est GFR (MDRD) Af Amer 82, Est GFR (MDRD) Non-Af 68, BUN/Creatinine Ratio 19.2, Glucose 203 H, Calcium 9.6 Assessment & Plan Assessment/Plan (1) Kidney stone on right side: PLAN: Plan The patient is a 67 y/o F w/ PMHx: Obesity, HTN, HLD, Diabetes mellitus type II, Anxiety and Depression, Hypothyroidism, Rheumatoid arthritis, Asthma, Former tobacco use who presents to the [facility] ED on 10/02/23 with history of 11 days of ongoing flank discomfort and pain in her groin region on the right described as intermittent cramping sensation and aching with associated nausea, bouts of emesis and chills without fever with decreased urinary frequency and some mild dysuria noting that she has passed several visible renal calculi specifically 2 on Friday with recent 09/30/23 most recently evaluation with CT imaging w/ noted 2 small adjacent calculi in the distal portion of the right ureter with mild degree of right hydronephrosis and right hydroureter with nonobstructive calculi also seen in the lower pole collection of the left kidney but given worsening pain 10/10 at its worst, currently upon evaluation 5/10 pain severity prompting ED return evaluation. #1. Persistent intractable right flank pain secondary to Acute Nephrolithiasis, unclear if also concurrent UTI as urine assessment pending upon evaluation: Will admit to MS, maintain on hydration, awaiting UA and if any indiciation of UTI will start IV Rocephin, maintain NPO for possible intervention, place on PPI in interim, will have PRN oral and IV pain regimen with overlapping low dose scheduled toradol with close renal function monitoring, Urology consulted given several stones passed and pain worsening with noted mild right sided hydronephrosis and ureter to be cautious for possible consideration of intervention, will catheterize for urine sample, will monitor for any urinary retention with catheterization as needed. #2. Chronic asthma: Not on any chronic medications, will have PRN albuterol, HOB, IS parameters. #3. Diabetes mellitus type II with chronic neuropathy: Hold oral home regimen, will maintain n.p.o. status with every 6 hour accu checks w/ ISS while NPO. Change back to ACHS once diet started. #4. Hypertension: Continue home regimen including lisinopril however closely monitor renal function given presentation and low threshold to hold if change in renal function, PRN hydralazine. #5. Hyperlipidemia: We will continue patient home statin therapy. #6. Hypothyroidism: We will continue patient home levothyroxine regimen. #7. Former tobacco use: Quit remotely, encourage continued tobacco cessation. #8. Obesity: Weight loss and lifestyle changes encouraged. #9. Anxiety and depression: Per current list not on any chronic regimen, encourage continued outpatient follow-up and counseling as needed. #10. Rheumatoid arthritis: Per current list not on any chronic regimen, encourage continued outpatient follow-up with rheumatology as previously arranged. #11. DVT prophylaxis: SCDs, hold chemoprophylaxis given planned OR. Charges/Coding Visit Charges Inpatient E&M: 98499 Init Hosp L3
[2023-10-02 00:52] LABS: Mucous, Urine 0 SEEN /hpf (<or=2+); Squamous Epithelial Cells - UA 0 SEEN /hpf (5-10); White Blood Cells 0 SEEN /hpf (0-5)
[2023-10-02 00:54] LABS: Color, Urine Yellow (Yellow); Glucose, Dipstick 250 mg/dl (Normal); Ketone-Dipstick 50 mg/dl (Negative); Leukocyte Esterase-Dipstick 25 /ul (Negative); Nitrite-Dipstick Negative (Negative); Occult Blood-Urine 250 /ul (Negative); Protein-Dipstick 30 mg/dl (Negative); Specific Gravity, Urine 1.025 (1.002-1.030); Urine Bilirubin Dipstick Negative (Negative); Urine Clarity Clear (Clear); Urine Urobilinogen 1 mg/dl (Normal)
[2023-10-02 01:07] LABS: Bacteria RARE /hpf (None Seen); Red Blood Cells-Urine > 100 SEEN /hpf (0-5)
[2023-10-02] MEDS: fentaNYL 100 MCG/2 ML Ampul 25 MCG IV (01:41)
[2023-10-02] MEDS: 0.9% Normal Saline (1000mL) 1,000 ML 200 ML IV (01:42)
[2023-10-02] MEDS: tiZANidine HCl 2 MG Tablet 4 MG PO ×2 (03:30→21:01)
[2023-10-02] MEDS: Gabapentin 600 MG Tablet PO ×2 (03:30→21:01)
[2023-10-02] MEDS: Pantoprazole Sodium 20 MG Tablet PO ×2 (03:32→21:01)
[2023-10-02] MEDS: 0.9% Normal Saline (1000mL) 1,000 ML 150 ML IV ×2 (03:36→08:41)
[2023-10-02 03:46] LABS: Bedside Glucose 94 mg/dL (74-106)
[2023-10-02] MEDS: Levothyroxine 150 MCG Tablet PO (05:31)
[2023-10-02] MEDS: oxyCODONE 5 MG Tablet PO (05:42)
[2023-10-02 07:02] LABS: Absolute Lymphocyte Count 2.52 X10^3/uL (0.83-4.51); Absolute Neutrophil Count 4.2 X10^3/uL (2.0-7.7); Basophil# 0.05 X10^3/uL; Basophil% 0.7 % (0-1); Eosinophil# 0.11 X10^3/uL; Eosinophils% 1.4 % (0-5); Hematocrit 37.8 % (37-47); Hemoglobin 11.7 g/dL (12.0-15.0); Lymphocyte # 2.52 X10^3/ul (0.83-4.51); Lymphocyte % 32.9 % (19-41); Mean Corpuscular Hgb 29.3 pg (27.0-32.0); Mean Corpuscular Volume 94.5 fL (81-99); Mean Platelet Vol. 10.7 fl (6.2-12.0); Monocyte# 0.73 X10^3/uL; Monocyte% 9.5 % (0-10); NRBC Flagged by Analyzer 0 % (0-5); Neutrophil # 4.22 X10^3/uL (2.7-7.7); Neutrophil % 55.1 % (47-70); Platelet Count 243 K/mm3 (150-450); RBC Distribution Width CV 14.7 % (11.6-14.6); RBC Distribution Width SD 50.9 fl (35.1-43.9); White Blood Count 7.7 K/mm3 (4.4-11.0)
--- NOTE | 2023-10-02 07:20 | CON.PCM.UR_ITS ---
Assessment & Plan Assessment/Plan (1) Kidney stone on right side: PLAN: Plan for cystoscopy right stent placement and right retrograde pyelogram today n.p.o. for surgery HPI Consult Data Date of Consult: 10/02/23 HPI Narrative Reason for Consultation: Right ureteral calculi HPI Narrative: JUAN DIEGO TARIQ, is a 67 F who presents to the emergency room as a bounce back she was discharged home with expectations to pass the stone she failed came back with intractable pain she was admitted for pain control CT scan was reviewed she has several small stones in the distal part of the right ureter but she has significant right hydronephrosis and hydroureter ureteral nephrosis consistent with high-grade obstruction so plan to take her to surgery today for cystoscopy retrograde pyelogram and right stent placement to alleviate the obstruction. [facility] Medical History Anxiety and depression Arthritis Asthma Chronic neck and back pain Diabetes Difficulty balancing when standing Hay fever HTN (hypertension) Hyperlipemia Rheumatoid arthritis Thyroid disease Type 2 diabetes mellitus Home Medications lisinopril 40 mg tablet 20 mg PO BID 02/26/16 [History Last Taken 10/03/20] metformin 1,000 mg tablet 1,000 mg PO BID 02/26/16 [History Last Taken 10/03/20] atorvastatin 20 mg tablet 80 mg PO QHS 09/28/20 [History Last Taken 10/03/20] celecoxib 100 mg capsule 100 mg PO Q24H 01/27/23 [History Last Taken Unknown] gabapentin 600 mg tablet 600 mg PO Q8H 07/17/23 [History Last Taken Unknown] glipizide PO DAILY Diabetes 07/17/23 [History Last Taken 10/01/23] levothyroxine 150 mcg tablet 150 mcg PO DAILY 07/17/23 [History Last Taken Unknown] pioglitazone 30 mg tablet 30 mg PO DAILY 07/17/23 [History Last Taken Unknown] tizanidine 4 mg tablet 4 mg PO Q12H 07/17/23 [History Last Taken Unknown] dulaglutide 1.5 mg/0.5 mL subcutaneous pen injector (Trulicity) 1.5 mg subcut QWEEK 09/11/23 [History Last Taken Unknown] nitrofurantoin monohydrate/macrocrystals 100 mg capsule 1 cap PO Q12H 7 days #14 caps 09/25/23 [Rx Last Taken Unknown] hydrocodone-acetaminophen 5-325mg 5mg-325mg 1 tab PO Q6H PRN PRN Pain 3 days #12 TABLETS 09/30/23 [Rx Last Taken Unknown] Allergy/AdvReac Type Severity Reaction Status Date / Time venom-honey bee Allergy Severe Anaphylaxis Verified 10/01/23 21:30 adhesive tape Allergy Mild Rash Verified 10/01/23 21:30 Family History Daughter Asthma Father Cancer Arthritis Mother Heart disease Arthritis Surgical History History of History of throat surgery Hx of dilation and curettage Hx of tonsillectomy Social History household members: spouse housing: house Smoking Status: Former smoker second hand exposure: No alcohol intake: current alcohol intake frequency: holidays/special occasions on ly substance use type: does not use caffeine: Yes what type of physical activity do you participate in: none frequency: does not exercise do you feel safe at home: Yes ROS Constitutional Constitutional: Denies chills, fever(s) or malaise Eyes Eyes: Denies blurry vision or change in vision ENT HEENT: Reports none Cardiovascular Cardiovascular: Denies chest pain or palpitations Respiratory/Chest Respiratory/Chest: Denies cough or shortness of breath with exertion Gastrointestinal Gastrointestinal: Denies abdominal pain, constipation or diarrhea Musculoskeletal Musculoskeletal: Denies back pain, joint stiffness or joint swelling Integumentary Integumentary: Denies dry skin, jaundice, lesions or rash Neurologic Neurologic: Denies confusion, syncope or weakness Psychiatric Psychiatric: Reports none; Denies anxiety or depression Endocrine Endocrinology: Denies excessive sweating, fatigue or flushing Hematologic/Lymphatic Hematologic/Lymphatic: Denies anemia, easy bleeding or easy bruising Physical Exam Const alert and oriented x3 General Appearance: cooperative HEENT normocephalic, head/scalp atraumatic, EAC's normal and TM's normal bilaterally Eyes PERRL and EOMs intact bilaterally Pupil: sluggish Neck no lymphadenopathy, supple and no JVD General: trachea midline Lymph Lymphatic: no lymphadenopathy noted, lymphedema and lymphadenopathy Resp normal respiratory effort, normal air movement and clear to auscultation bilaterally Cardio regular rate, regular rhythm and peripheral pulses 2+ throughout GI soft to palpation, non-tender and non-distended Extremity normal capillary refill and no clubbing, cyanosis or edema General Extremity: no tenderness to palpation of joints or extremities Skin no rashes or lesions noted General Skin Exam: turgor normal Lesions: no lesions Rashes: no rashes Neuro CN's II-XII intact bilaterally Speech: speech normal Motor Exam: strength 5/5 throughout; Negative for general weakness Psych thought process normal, cooperative and affect normal Appearance: appropriate Medical Records Data Attestation: I reviewed the patient's medical records Lab / Micro Data 10/02/23 05:31 10/01/23 22:19 Labs: Laboratory Results - last 24 hr 10/01/23 22:19: WBC 10.2, RBC 4.64, Hgb 13.5, Hct 42.4, MCV 91.4, MCH 29.1, MCHC 31.8 L, RDW Std Deviation 49.0 H, RDW Coeff of Leo 14.6, Plt Count 276, MPV 9.9, Immature Gran % (Auto) 0.400, Neut % (Auto) 82.1 H, Lymph % (Auto) 10.2 L, Sevier % (Auto) 6.3, Eos % (Auto) 0.5, Baso % (Auto) 0.5, Absolute Neuts (auto) 8.4 H, Absolute Lymphs (auto) 1.04, Nucleated RBC % 0, Sodium 142, Potassium 3.5, Chloride 107, Carbon Dioxide 29.0, Anion Gap 6, BUN 17, Creatinine 0.88, Estim Creat Clear Calc 55.82, Est GFR (MDRD) Af Amer 82, Est GFR (MDRD) Non-Af 68, BUN/Creatinine Ratio 19.2, Glucose 203 H, Calcium 9.6 10/02/23 00:45: Urine Color Yellow, Urine Clarity Clear, Urine pH 5.0, Ur Specif ic Schaller 1.025, Urine Protein 30 H, Urine Glucose (UA) 250 H, Urine Ketones 50 H, Urine Occult Blood 250 H, Urine Nitrite Negative, Urine Bilirubin Negative, Urine Urobilinogen 1 H, Ur Leukocyte Esterase 25 H, Urine RBC > 100 SEEN, Urine WBC 0 SEEN, Ur Squamous Epith Cells 0 SEEN, Urine Bacteria RARE, Urine Mucus 0 SEEN 10/02/23 03:23: POC Glucose 94 10/02/23 05:31: WBC 7.7, RBC 4.00 L, Hgb 11.7 L, Hct 37.8, MCV 94.5, MCH 29.3, MCHC 31.0 L, RDW Std Deviation 50.9 H, RDW Coeff of Leo 14.7 H, Plt Count 243, MPV 10.7, Immature Gran % (Auto) 0.400, Neut % (Auto) 55.1, Lymph % (Auto) 32.9, Sevier % (Auto) 9.5, Eos % (Auto) 1.4, Baso % (Auto) 0.7, Absolute Neuts (auto) 4.2, Absolute Lymphs (auto) 2.52, Nucleated RBC % 0
[2023-10-02 07:35] LABS: AST(SGOT) 16 U/L (15-37); Alanine Aminotransfer ALT/SGPT 20 U/L (13-56); Albumin, Serum 3.1 g/dL (3.2-5.0); Alkaline Phosphatase 56 U/L (45-117); Anion Gap 6 (5-15); BUN 19 mg/dL (7-18); BUN/Creat Ratio 24.3 RATIO (10-20); Calcium,Total 8.8 mg/dL (8.5-10.1); Chloride 113 mmol/L (98-107); Creatinine, Serum 0.78 mg/dL (0.55-1.02); EST Glomerular Filtration Rate 78 mL/min (>60); Est Glom Filt Rate - Afr Amer 94 mL/min (>60); Estimated Creatinine Clearance 49.12 ml/min; Glucose 76 mg/dL (74-106); Protein, Total 6.1 g/dL (6.4-8.2); Sodium Level 142 mmol/L (136-145)
[2023-10-02] MEDS: Flu Vacc QS2023-24(65YR UP)/PF 240 MCG/0.7 ML Syringe IM (08:38)
[2023-10-02] MEDS: Dextrose 50%-Water 25 GM/50 ML DISP.SYRIN IV ×2 (11:07→13:06)
[2023-10-02 11:19] LABS: Bedside Glucose 69 mg/dL (74-106)
--- NOTE | 2023-10-02 13:27 | PN_ITS ---
Subjective Subjective Patient seen and examined. He was admitted with a complaint of flank pain as well as pain in her groin and mild dysuria. She had passed several kidney stones. She had been seen in the ED on 09/30/[address] of the abdomen and pelvis showed 2 small adjacent calculi in the distal portion of the right ureter with mild degree of right hydronephrosis and right hydroureter with nonobstructive calculi. She was sent home but patient subsequently came back on day of this admission. She came with persistent right flank pain. She has been managed for acute nephrolothiasis. Pain is much improved today. She denies any nausea, vomiting, fever or chills or any other complaints. Review of systems is otherwise negative. Urology on board. Objective Data Objective Data Vital Signs: Vital Signs Temp Pulse Resp BP Pulse Ox O2 Del Method 98.1 F 60 16 90/47 L 95 Room Air 10/02/23 12:59 10/02/23 12:59 10/02/23 12:59 10/02/23 12:59 10/02/23 12:59 10/02/23 12:59 Oxygen Delivery Method Room Air Weight: 203 lb 4.259 oz Body Mass Index (BMI) 33.8 Intake & Output: Intake and Output for Last 24 Hours 09/30/23 10/01/23 10/02/23 23:59 23:59 23:59 Intake Total 3050.0 / 3050.0 Balance 3050.0 / 3050.0 Lab / Micro Data 10/02/23 05:31 10/02/23 05:31 Labs: Laboratory Results - last 24 hr 10/01/23 22:19: WBC 10.2, RBC 4.64, Hgb 13.5, Hct 42.4, MCV 91.4, MCH 29.1, MCHC 31.8 L, RDW Std Deviation 49.0 H, RDW Coeff of Leo 14.6, Plt Count 276, MPV 9.9, Immature Gran % (Auto) 0.400, Neut % (Auto) 82.1 H, Lymph % (Auto) 10.2 L, [place] % (Auto) 6.3, Eos % (Auto) 0.5, Baso % (Auto) 0.5, Absolute Neuts (auto) 8.4 H, Absolute Lymphs (auto) 1.04, Nucleated RBC % 0, Sodium 142, Potassium 3.5, Chloride 107, Carbon Dioxide 29.0, Anion Gap 6, BUN 17, Creatinine 0.88, Estim Creat Clear Calc 55.82, Est GFR (MDRD) Af Amer 82, Est GFR (MDRD) Non-Af 68, BUN/Creatinine Ratio 19.2, Glucose 203 H, Calcium 9.6 10/02/23 00:45: Urine Color Yellow, Urine Clarity Clear, Urine pH 5.0, Ur Specific [place] 1.025, Urine Protein 30 H, Urine Glucose (UA) 250 H, Urine Ketones 50 H, Urine Occult Blood 250 H, Urine Nitrite Negative, Urine Bilirubin Negative, Urine Urobilinogen 1 H, Ur Leukocyte Esterase 25 H, Urine RBC > 100 SEEN, Urine WBC 0 SEEN, Ur Squamous Epith Cells 0 SEEN, Urine Bacteria RARE, Urine Mucus 0 SEEN 10/02/23 03:23: POC Glucose 94 10/02/23 05:31: WBC 7.7, RBC 4.00 L, Hgb 11.7 L, Hct 37.8, MCV 94.5, MCH 29.3, MCHC 31.0 L, RDW Std Deviation 50.9 H, RDW Coeff of Leo 14.7 H, Plt Count 243, MPV 10.7, Immature Gran % (Auto) 0.400, Neut % (Auto) 55.1, Lymph % (Auto) 32.9, [place] % (Auto) 9.5, Eos % (Auto) 1.4, Baso % (Auto) 0.7, Absolute Neuts (auto) 4.2, Absolute Lymphs (auto) 2.52, Nucleated RBC % 0, Sodium 142, Potassium 4.0, Chloride 113 H, Carbon Dioxide 23.0, Anion Gap 6, BUN 19 H, Creatinine 0.78, Estim Creat Clear Calc 49.12, Est GFR (MDRD) Af Amer 94, Est GFR (MDRD) Non-Af 78, BUN/Creatinine Ratio 24.3 H, Glucose 76, Calcium 8.8, Total Bilirubin 0.60, AST 16, ALT 20, Alkaline Phosphatase 56, Total Protein 6.1 L, Albumin 3.1 L, Globulin 3.0, Albumin/Globulin Ratio 1.0 10/02/23 11:01: POC Glucose 69 L Physical Exam Const alert, oriented x3 and no apparent distress General Appearance: cooperative HEENT normocephalic, head/scalp atraumatic, moist oral mucous membranes and oropharynx normal Eyes PERRL and EOMs intact bilaterally Neck no lymphadenopathy and supple Lymph Lymphatic: no lymphadenopathy noted and no lymphedema noted Resp normal respiratory effort, normal air movement and clear to auscultation bilaterally Cardio regular rate, regular rhythm, S1 normal heart sound, S2 normal heart sound and no murmurs GI normal to inspection, nondistended, normoactive bowel sounds, soft to palpation, non-tender and non-distended Extremity normal capillary refill, no clubbing, cyanosis or edema and no calf tenderness General Extremity: no tenderness to palpation of joints or extremities Skin General Skin Exam: no breakdown Neuro CN's II-XII intact bilaterally, no focal motor deficits, no sensory deficits noted and deep tendon reflexes 2+ bilaterally Motor Exam: strength 5/5 throughout and general weakness Psych thought process normal, cooperative and affect normal Appearance: appropriate Assessment & Plan Assessment/Plan (1) Renal colic: PLAN: Plan #INtractable right flank pain due to acue nephrolithiasis * Being hydrated with IV fluids. On IV Rocephin for presumptive UTI. * On IV morphine as needed for pain. #Hypertension: On lisinopril. IV hydralazine as needed. #Asthma: Not in exacerbation. Breathing treatments and bronchodilators. #Hypotension: Blood pressure running low at 90/47. Blood pressure was in the 160s when she came in yesterday. Hold all BP meds and hydrate gently with IVF #Hyperlipidemia: On statin #Hypothyroidism: Synthroid * Urology on board. Had passed several stones and also had mild right-sided hydronephrosis and hydroureter. * For cystoscopy with right stent placement today by urology. * #Type 2 diabetes mellitus with neuropathy: Oral meds on hold as she is NPO. Insulin sliding scale. Accuchecks every 6 hourly. DVT prophylaxis: SCDs. Charges/Coding Visit Charges Inpatient E&M: 76011 Subs Hosp L2
[2023-10-02 13:28] LABS: Bedside Glucose 61 mg/dL (74-106)
[2023-10-02] MEDS: Ketorolac 15 MG/ML Vial IV (15:22)
[2023-10-02] MEDS: 0.9% Saline Lock 10 ML Syringe IV (15:23)
[2023-10-02 15:45] LABS: Bedside Glucose 75 mg/dL (74-106)
[2023-10-02] MEDS: Dextrose 5%/0.9% NaCl 1,000 ML 75 ML IV (15:50)
--- NOTE | 2023-10-02 16:45 | CASEMGMT ---
Met with patient to complete HUSAIN form. HUSAIN form explained to patient who voiced understanding and signed form. Original form placed in pt?s chart and copy provided to?patient. Radha Jon, Discharge Planning Asst
[2023-10-02 17:41] LABS: Bedside Glucose 77 mg/dL (74-106)
[2023-10-02] MEDS: Atorvastatin Calcium 80 MG Tablet PO (21:01)
[2023-10-02] MEDS: Insulin Lispro 100 UNIT/ML INSULN.PEN SC (23:18)
[2023-10-03 02:01] LABS: Bedside Glucose 155 mg/dL (74-106)
[2023-10-03 03:00] VITALS: BP 110/58; PULSE 84; RESP 18; TEMP 37.3; O2SAT 95
[2023-10-03] MEDS: Dextrose 5%/0.9% NaCl 1,000 ML 75 ML IV (03:22)
[2023-10-03 03:53] VITALS: BMI 34.1
[2023-10-03] MEDS: Gabapentin 600 MG Tablet PO ×2 (05:14→13:07)
[2023-10-03] MEDS: Levothyroxine 150 MCG Tablet PO (05:14)
[2023-10-03 06:46] LABS: Bedside Glucose 127 mg/dL (74-106)
--- NOTE | 2023-10-03 06:47 | CT_ITS ---
STUDY: CT ABDOMEN AND PELVIS WITHOUT CONTRAST REASON FOR EXAM: Female, 67 years old patient presents to evaluate kidney stone. RADIATION DOSAGE (If Supplied By Facility): CTDIvol = ( 11.90 ) mGy, DLP = ( 594.37 ) mGycm TECHNIQUE: Transaxial images were obtained from the dome of the diaphragm to the symphysis pubis without oral contrast, and without intravenous contrast. Sagittal and coronal images were reconstructed. Individualized dose optimization techniques were used for this CT. COMPARISON: CT of the abdomen and pelvis dated September 30, 2023. FINDINGS: There is right lower lobe atelectasis and patchy air space disease. This is new since the previous CT. The visualized portions of the heart are within normal limits. There are coronary artery calcifications. There is hepatomegaly with diffuse hepatic enlargement. The liver measures approximately 22.9 cm in greatest dimension. There are multiple tiny gallstones. Normal spleen. Normal pancreas. Normal bilateral adrenal glands. Normal right kidney. Large cyst arising from left kidney measuring approximately 5.3 cm. There is nonobstructing calculus in the lower pole of the left kidney measuring 4.7 mm. Normal visualized stomach. There is no obvious dilated bowel, ascites or pneumoperitoneum. Small bowel has a grossly normal appearance. There is stool and/or gas visible in the colon. The appendix is visualized and appears normal. There is multifocal atherosclerotic calcification of the abdominal aorta, without a demonstrated aneurysm. Normal inferior vena cava. Normal retroperitoneum. Normal urinary bladder. Normal visualized uterus. There is a small umbilical hernia containing fat. Normal osseous structures. CT/Abdomen/Pelvis without Cont IMPRESSION: 1. There appears have been resolution of the right-sided hydronephrosis, hydroureter and ureteral calculi since previous CT. 2. There is interval development of right basilar atelectasis and airspace disease suggesting possible pneumonia. 3. Nonobstructing left-sided renal calculus. Electronically Signed: Cora Souza MD at 8:06 EDT ,
[2023-10-03] MEDS: Lisinopril 20 MG Tablet PO (07:54)
[2023-10-03] MEDS: tiZANidine HCl 2 MG Tablet 4 MG PO (07:54)
[2023-10-03] MEDS: Pantoprazole Sodium 20 MG Tablet PO (07:54)
[2023-10-03] MEDS: Ketorolac 15 MG/ML Vial IV (07:55)
[2023-10-03 09:00] VITALS: BP 123/57; PULSE 83; RESP 18; TEMP 36.5; O2SAT 97
[2023-10-03 09:16] VITALS: O2SAT 92
[2023-10-03 10:35] LABS: Absolute Lymphocyte Count 1.08 X10^3/uL (0.83-4.51); Absolute Neutrophil Count 2.6 X10^3/uL (2.0-7.7); Basophil# 0.03 X10^3/uL; Basophil% 0.7 % (0-1); Eosinophil# 0.06 X10^3/uL; Eosinophils% 1.5 % (0-5); Hematocrit 32.7 % (37-47); Hemoglobin 10.3 g/dL (12.0-15.0); Lymphocyte # 1.08 X10^3/ul (0.83-4.51); Lymphocyte % 26.4 % (19-41); Mean Corp Hgb Conc 31.5 g/dL (32-36); Mean Corpuscular Hgb 29.4 pg (27.0-32.0); Mean Corpuscular Volume 93.4 fL (81-99); Monocyte# 0.32 X10^3/uL; Monocyte% 7.8 % (0-10); NRBC Flagged by Analyzer 0 % (0-5); Neutrophil # 2.59 X10^3/uL (2.7-7.7); Neutrophil % 63.4 % (47-70); Platelet Count 186 K/mm3 (150-450); RBC Distribution Width CV 14.5 % (11.6-14.6); RBC Distribution Width SD 49.5 fl (35.1-43.9); White Blood Count 4.1 K/mm3 (4.4-11.0)
[2023-10-03 10:58] LABS: Anion Gap 2 (5-15); BUN 14 mg/dL (7-18); BUN/Creat Ratio 22.4 RATIO (10-20); Calcium,Total 8.4 mg/dL (8.5-10.1); Chloride 112 mmol/L (98-107); Creatinine, Serum 0.62 mg/dL (0.55-1.02); EST Glomerular Filtration Rate 101 mL/min (>60); Est Glom Filt Rate - Afr Amer 122 mL/min (>60); Estimated Creatinine Clearance 49.12 ml/min; Glucose 114 mg/dL (74-106); Potassium 3.7 mmol/L (3.5-5.1); Sodium Level 141 mmol/L (136-145)
[2023-10-03 11:51] LABS: Bedside Glucose 107 mg/dL (74-106)
--- NOTE | 2023-10-03 13:18 | DS.PCM_ITS ---
Providers Date of Admission: 10/02/23 Date of Discharge: 10/03/23 Primary Care Physician: Danette Levine, MILLY Consultations 10/02/23 02:34 Consult: Urology Routine Consulting Provider: Flako Lassiter Reason for Consult: Intractable pain w/ calculi, mild right sided hydro EMERGENT Consult: No MD Notified: Yes Date Notified: 10/02/23 Time Notified: 00:32 Method of Notification: ED Physician Initiated Reason For Visit: RENAL CALCULI W/MILD RIGHT HYDRONEPHROSIS/HYDROURE Diagnosis Discharge Diagnosis (1) Renal colic: Status: Acute Code(s): N23 - Unspecified renal colic Plan #INtractable right flank pain due to acue nephrolithiasis * Being hydrated with IV fluids. On IV Rocephin for presumptive UTI. * On IV morphine as needed for pain. #Hypertension: On lisinopril. IV hydralazine as needed. #Asthma: Not in exacerbation. Breathing treatments and bronchodilators. #Hypotension: Blood pressure running low at 90/47. Blood pressure was in the 160s when she came in yesterday. Hold all BP meds and hydrate gently with IVF #Hyperlipidemia: On statin #Hypothyroidism: Synthroid * Urology on board. Had passed several stones and also had mild right-sided hydronephrosis and hydroureter. * For cystoscopy with right stent placement today by urology. * #Type 2 diabetes mellitus with neuropathy: Oral meds on hold as she is NPO. Insulin sliding scale. Accuchecks every 6 hourly. DVT prophylaxis: SCDs. Medications at Discharge Home Medications metformin 1,000 mg tablet 1,000 mg PO BID 02/26/16 atorvastatin 20 mg tablet 80 mg PO QHS 09/28/20 celecoxib 100 mg capsule 100 mg PO Q24H 01/27/23 gabapentin 600 mg tablet 600 mg PO Q8H 07/17/23 glipizide PO DAILY Diabetes 07/17/23 levothyroxine 150 mcg tablet 150 mcg PO DAILY 07/17/23 pioglitazone 30 mg tablet 30 mg PO DAILY 07/17/23 tizanidine 4 mg tablet 4 mg PO Q12H 07/17/23 dulaglutide 1.5 mg/0.5 mL subcutaneous pen injector (Trulicity) 1.5 mg subcut QWEEK 09/11/23 nitrofurantoin monohydrate/macrocrystals 100 mg capsule 1 cap PO Q12H 7 days #14 caps 09/25/23 hydrocodone-acetaminophen 5-325mg 5mg-325mg 1 tab PO Q6H PRN PRN Pain 3 days #12 TABLETS 09/30/23 lisinopril 20 mg tablet 20 mg PO DAILY #30 tabs 10/03/23 Hospital Course Operations None Procedures None Summary of Care Provided Minutes Spent on Discharge: 55 Hospital Course: Patient is a 67-year-old female with an extensive past medical history as outlined was admitted through the ED on 10/02/2023 with a complaint of persistent right flank and groin pain which she described as intermittent and aching with associated nausea and chills. She denied any fever and had decreased urinary frequency and some mild dysuria. She had passed several kidney stones with the most recent being on 09/30/2023. CT of the abdomen and pelvis done showed 2 small adjacent calculi in the distal portion of the right ureter with mild degree of right hydronephrosis and hydroureter ureter with nonobstructive calculi seen in the lower pole collection of the left kidney. Urology was consulted and initially planned for cystoscopy with stent placement. Patient's abdominal pain improved and she felt better. Urology reviewed her and determined that since she had passed the stones, there was no need for any surgical intervention. Patient remained stable and was discharged home on 10/03/2023. She is to follow-up with a PCP within 1 to 2 weeks and follow-up with urology as needed. Patient seen and examined prior to discharge. She had no complaints and felt well. She had an uneventful night. Review of systems otherwise negative. Labs and vitals reviewed. Home medication reviewed and reconciled. Physical Exam Const alert, oriented x3 and no apparent distress General Appearance: cooperative and comfortable Orientation / Consciousness: awake HEENT normocephalic, head/scalp atraumatic, hearing grossly normal bilaterally, moist oral mucous membranes and oropharynx normal Mouth: oral and palatal mucosa normal Eyes PERRL and EOMs intact bilaterally Neck no lymphadenopathy and supple Lymph Lymphatic: no lymphadenopathy noted and no lymphedema noted Resp normal respiratory effort, normal air movement and clear to auscultation bilaterally Cardio regular rate, regular rhythm, S1 normal heart sound, S2 normal heart sound and no murmurs GI normal to inspection, nondistended, normoactive bowel sounds, soft to palpation, non-tender and non-distended Extremity normal to inspection, full ROM, normal capillary refill, no clubbing, cyanosis or edema and no calf tenderness General Extremity: no tenderness to palpation of joints or extremities Skin no rashes or lesions noted General Skin Exam: no breakdown Neuro oriented x3, CN's II-XII intact bilaterally, moves all extremities, no focal motor deficits, no sensory deficits noted and deep tendon reflexes 2+ bilaterally Sensorium / Orientation: awake Motor Exam: strength 5/5 throughout and general weakness Psych thought process normal, cooperative and affect normal Appearance: appropriate Weight / BMI Weight Weight: 205 lb 0.478 oz Body Mass Index (BMI) 34.1 ABG / Lab / Microbiology Data 10/03/23 10:03 10/03/23 10:03 Laboratory: Laboratory Results - last 24 hr 10/02/23 13:03: POC Glucose 61 L 10/02/23 15:24: POC Glucose 75 10/02/23 17:23: POC Glucose 77 10/02/23 23:15: POC Glucose 155 H 10/03/23 05:16: POC Glucose 127 H 10/03/23 10:03: WBC 4.1 L, RBC 3.50 L, Hgb 10.3 L, Hct 32.7 L, MCV 93.4, MCH 29.4, MCHC 31.5 L, RDW Std Deviation 49.5 H, RDW Coeff of Leo 14.5, Plt Count 186, MPV 10.0, Immature Gran % (Auto) 0.200, Neut % (Auto) 63.4, Lymph % (Auto) 26.4, [place] % (Auto) 7.8, Eos % (Auto) 1.5, Baso % (Auto) 0.7, Absolute Neuts (auto) 2.6, Absolute Lymphs (auto) 1.08, Nucleated RBC % 0, Sodium 141, Potassium 3.7, Chloride 112 H, Carbon Dioxide 27.0, Anion Gap 2 L, BUN 14, Creatinine 0.62, Estim Creat Clear Calc 49.12, Est GFR (MDRD) Af Amer 122, Est GFR (MDRD) Non-Af 101, BUN/Creatinine Ratio 22.4 H, Glucose 114 H, Calcium 8.4 L 10/03/23 11:32: POC Glucose 107 H Radiography Diagnostic Testing: Radiology Impression Abdomen/Pelvis CT 10/03/23 06:47 IMPRESSION: 1. There appears have been resolution of the right-sided hydronephrosis, hydroureter and ureteral calculi since previous CT. 2. There is interval development of right basilar atelectasis and airspace disease suggesting possible pneumonia. 3. Nonobstructing left-sided renal calculus. Electronically Signed: Cora Souza MD at 8:06 EDT Reading Location ID and State: [facility] / [place] , Service support , D/C Instructions Discharge Diet: Low fat / Low cholesterol Discharge Activity: Return to Normal Activity Weight Bearing Status: Weight bearing as tolerated Call your doctor if you observe: Fever of 101 or Higher, Shortness of breath, Dizziness, Swelling in the ankles and Chest pain Meaningful Use Info Meaningful Use Diagnoses (Choose all that apply): None applicable Discharge Plan Admission Admit Date/Time: 10/02/23 00:28 Primary Reason for Your Visit: kidney stones Attending Provider: Yanci Villalpando Primary Care Provider: Danette Levine NP Consulting Providers: Flako Lassiter; Lula Alaniz Instructions Patient Instructions: Identifying Kidney Stones, ED Kidney Stone, Passed Discharge Orders/Prescriptions Prescriptions: New lisinopril 20 mg tablet 20 mg PO DAILY Qty: 30 2RF Continued celecoxib 100 mg capsule 100 mg PO Q24H Patient Comments: pt reports she takes bid nitrofurantoin monohyd/m-cryst 100 mg capsule 1 cap PO Q12H 7 Days Qty: 14 0RF Rx Instructions: administer with a meal/food; swallow whole; do not open, crush, dissolve , or chew metformin 1,000 MG tablet 1,000 mg PO BID Patient Comments: BLOOD SUGAR atorvastatin 20 MG tablet 80 mg PO QHS hydrocodone-acetaminophen 5-325 mg tablet 1 tab PO Q6H PRN PRN (Reason: Pain) 3 Days Qty: 12 0RF glipizide PO DAILY pioglitazone 30 mg tablet 30 mg PO DAILY tizanidine 4 mg tablet 4 mg PO Q12H levothyroxine 150 mcg tablet 150 mcg PO DAILY gabapentin 600 mg tablet 600 mg PO Q8H Trulicity 1.5 mg/0.5 mL pen injector 1.5 mg subcut QWEEK Discontinued lisinopril 40 MG tablet 20 mg PO BID Patient Comments: BLOOD PRESSURE Referrals / Follow Up: Danette Levine DIRECTOR OF CHILD WELFARE SERVICES, DIRECTOR OF CHILD WELFARE SERVICES-C [Primary Care Provider] - Within 1 Week Disposition Disposition (needs filled in before D/C Order can be placed): Home, Self Care Charges/Coding Visit Charges Inpatient E&M: 62325 Disch Hosp >30min
--- NOTE | 2023-10-03 14:19 | PHA.DC.MR.R ---
Pharmacy [place] Med Reconciliation Pharmacy Service has performed discharge medication reconciliation for this patient. The patient's discharge medication list was reviewed for discrepancies and discrepancies were resolved. Medications at Discharge Home Medications metformin 1,000 mg tablet 1,000 mg PO BID 02/26/16 atorvastatin 20 mg tablet 80 mg PO QHS 09/28/20 celecoxib 100 mg capsule 100 mg PO Q24H 01/27/23 gabapentin 600 mg tablet 600 mg PO Q8H 07/17/23 glipizide PO DAILY Diabetes 07/17/23 levothyroxine 150 mcg tablet 150 mcg PO DAILY 07/17/23 pioglitazone 30 mg tablet 30 mg PO DAILY 07/17/23 tizanidine 4 mg tablet 4 mg PO Q12H 07/17/23 dulaglutide 1.5 mg/0.5 mL [facility] 1.5 mg subcut QWEEK 09/11/23 nitrofurantoin monohydrate/macrocrystals 100 mg capsule 1 cap PO Q12H 7 days #14 caps 09/25/23 hydrocodone-acetaminophen 5-325mg 5mg-325mg 1 tab PO Q6H PRN PRN Pain 3 days #12 TABLETS 09/30/23 lisinopril 20 mg tablet 20 mg PO DAILY #30 tabs 10/03/23
--- NOTE | 2023-10-03 14:30 | CASEMGMT ---
Patient has order for discharge. RN CM in to discuss discharge needs with patient. Patient denies needs at discharge. Patient had no further questions or concerns .
== END 2023-10-03 13:17 | disposition home or self-care (01) ==
LOC: ED 10-02 00:24 → PCU 10-02 01:41
PROVIDERS: Admitting Provider Family Medicine; Emergency Provider Emergency Medicine; PCP Nurse Practitioner Family; Visit Provider Student in an Organized Health Care Education/Training Program
DX: N13.2 Hydronephrosis with renal and ureteral calculous obstruction (principal); M06.9 Rheumatoid arthritis, unspecified; E11.40 Type 2 diabetes mellitus with diabetic neuropathy, unspecified; E11.9 Type 2 diabetes mellitus without complications; E78.5 Hyperlipidemia, unspecified; I10 Essential (primary) hypertension; E03.9 Hypothyroidism, unspecified; Z87.891 Personal history of nicotine dependence; Z79.899 Other long term (current) drug therapy; Z79.84 Long term (current) use of oral hypoglycemic drugs; Z79.890 Hormone replacement therapy; Z79.85 Long-term (current) use of injectable non-insulin antidiabetic drugs; F41.9 Anxiety disorder, unspecified; F32.A Depression, unspecified; Z23 Encounter for immunization
CPT/HCPCS: 36415; 74176; 80048; 80053; 81001; 82962; 85025; 96361; 96374; 96375; 96376; 99221; 99284; G0008; J7030; 90662; A4216; G0378; J2405

== ENCOUNTER 2023-11-24 13:16 | Emergency (ER) | payer MEDICARE, SELFPAY ==
[2023-11-24 13:18] VITALS: BP 110/81; PULSE 100; RESP 18; TEMP 36.8; O2SAT 100; BMI 32.5
[2023-11-24 13:20] VITALS: BP 110/81; PULSE 100; RESP 18; TEMP 36.8; O2SAT 100
--- NOTE | 2023-11-24 14:08 | EKG12_ITS ---
Test Reason : SOB Blood Pressure : / mmHG Vent. Rate : 075 BPM Atrial Rate : 075 BPM P-R Int : 160 ms QRS Dur : 122 ms QT Int : 404 ms P-R-T Axes : 027 -84 022 degrees QTc Int : 451 ms Normal sinus rhythm Right bundle branch block Left anterior fascicular block Bifascicular block Abnormal ECG Confirmed by AYALA HURD, MARIETTA ([id number]), supervising editor news reel TRISTAN ABREU ([id number]) on 12/02/2023 9:20:13 AM Referred By: CAIT Confirmed By:MARIETTA CAI MD
--- NOTE | 2023-11-24 14:09 | EDS_ITS ---
HPI History of Present Illness Chief Complaint: Cold Sx Detail of Chief Complaint: Not feeling well x 9 days Informant: patient Narrative Narrative: Patient presents with complaint of continued cough and generalized weakness x 9 days. Patient states her illness started 9 days ago with cough as well as sore throat and headache. She had diarrhea for a few days but then that resolved. She has little energy to make food for herself. Cough mostly nonproductive. She has subjective fever and some sweats this morning but did not take her temperature. Patient is concerned about possibility of pneumonia. Patient states that she tested for COVID-19 on day 5 of her illness and was negative. Denies vomiting. She denies significant chest discomfort. [facility] Medical History Anxiety and depression Arthritis Asthma Chronic neck and back pain Diabetes Difficulty balancing when standing Hay fever HTN (hypertension) Hyperlipemia Rheumatoid arthritis Thyroid disease Type 2 diabetes mellitus Home Medications metformin 1,000 mg tablet 1,000 mg PO BID 02/26/16 [History Last Taken 10/03/20] atorvastatin 20 mg tablet 80 mg PO QHS 09/28/20 [History Last Taken 10/03/20] celecoxib 100 mg capsule 100 mg PO Q24H 01/27/23 [History Last Taken Unknown] gabapentin 600 mg tablet 600 mg PO Q8H 07/17/23 [History Last Taken Unknown] glipizide PO DAILY Diabetes 07/17/23 [History Last Taken 10/01/23] levothyroxine 150 mcg tablet 150 mcg PO DAILY 07/17/23 [History Last Taken Unknown] pioglitazone 30 mg tablet 30 mg PO DAILY 07/17/23 [History Last Taken Unknown] tizanidine 4 mg tablet 4 mg PO Q12H 07/17/23 [History Last Taken Unknown] dulaglutide 1.5 mg/0.5 mL subcutaneous pen injector (Trulicity) 1.5 mg subcut QWEEK 09/11/23 [History Last Taken Unknown] hydrocodone-acetaminophen 5-325mg 5mg-325mg 1 tab PO Q6H PRN PRN Pain 3 days #12 TABLETS 09/30/23 [Rx Last Taken Unknown] lisinopril 20 mg tablet 20 mg PO DAILY #30 tabs 10/03/23 [Rx Last Taken Unknown] prednisone 20 mg tablet 20 mg PO BID #10 tabs 11/24/23 [Rx Last Taken Unknown] Allergy/AdvReac Type Severity Reaction Status Date / Time venom-honey bee Allergy Severe Anaphylaxis Verified 11/24/23 13:18 adhesive tape Allergy Mild Rash Verified 11/24/23 13:18 Family History Daughter Asthma Father Cancer Arthritis Mother Heart disease Arthritis Surgical History History of History of throat surgery Hx of dilation and curettage Hx of tonsillectomy Social History household members: spouse housing: house Smoking Status: Former smoker second hand exposure: No alcohol intake: current alcohol intake frequency: holidays/special occasions only substance use type: does not use caffeine: Yes what type of physical activity do you participate in: none frequency: does not exercise do you feel safe at home: Yes ROS ROS ED Review of Systems ROS Unobtainable: other Constitutional Constitutional ED: Reports lethargy; Denies chills, fever(s), sweats or weight loss Eyes Eyes: Denies blurry vision, change in vision or diplopia ENT ENT ED: Denies rhinorrhea or sore throat Cardiovascular Cardiovascular: Denies chest pain, orthopnea or racing heartbeat Respiratory/Chest Respiratory/Chest: Reports cough, dyspnea and dyspnea on exertion; Denies orthopnea or sputum Gastrointestinal Gastrointestinal: Denies abdominal pain, diarrhea, nausea or vomiting Genitourinary Genitourinary ED: Denies dysuria, hematuria or urinary frequency Musculoskeletal Musculoskeletal: Denies arthralgias, back pain, myalgias or neck pain Integumentary Denies abscess, Abrasions or rash Neurologic Neurologic: Denies headache(s) or weakness Psychiatric Psychiatric: Denies anxiety, depression or suicidal thoughts Endocrine Endocrinology: Denies polydipsia, polyphagia or polyuria Hematologic/Lymphatic Hematologic/Lymphatic: Denies easy bleeding, easy bruising or lymphadenopathy Allergic/Immunologic Allergic/Immunologic ED: Denies mouth swelling, tongue swelling or urticaria EXAM Physical Exam Const Vital Signs: 11/24/23 13:18 11/24/23 13:20 11/24/23 14:23 Temperature 98.2 F 98.2 F Temperature Source Oral Oral Pulse Rate 100 100 85 Respiratory Rate 18 18 18 Respiratory Effort Respiratory Pattern Normal Blood Pressure 110/81 H 110/81 H Blood Pressure Mean 90 90 Pulse Ox 100 100 Oxygen Delivery Method Room Air Room Air 11/24/23 14:38 Temperature Temperature Source Pulse Rate Respiratory Rate Respiratory Effort Short of Breath Respiratory Pattern Blood Pressure Blood Pressure Mean Pulse Ox Oxygen Delivery Method Positive well nourished and well developed General Appearance ED: well developed and NAD HEENT Reports TM's clear and moist mucous membranes normocephalic and atraumatic; Negative for trauma or tenderness Tympanic Membrane ED: Yes TM's clear Eyes PERRL and EOMs intact bilaterally General Eye ED: Negative for pale conjunctiva or scleral icterus Neck no lymphadenopathy, supple and no JVD General: Negative for tenderness Chest Wall inspection of chest normal and palpation of chest normal Chest: Negative for tenderness Resp normal respiratory effort and clear to auscultation bilaterally Effort and Inspection: Negative for respiratory distress or pain with movement Auscultation: Negative for rhonchi, wheezes or diminished lung sounds Cardio regular rate, regular rhythm, S1 normal heart sound, S2 normal heart sound and no murmurs Peripheral Pulses: pulses 2+ throughout GI normal to inspection, nondistended, normoactive bowel sounds, soft to palpation, non-tender, non-distended and no masses Back/Spine no CVA tenderness and no thoracic nor lumbar tenderness Extremity normal to inspection General Extremety ED: Negative for edema General Extremity: Negative for edema Neuro oriented x3, CN's II-XII intact bilaterally, no sensory deficits noted and gait normal Sensorium / Orientation: awake, alert, oriented to person, oriented to place and oriented to time Motor Exam: strength 5/5 throughout and strength abnormal Psych mental status grossly normal Skin no rashes or lesions noted and no wounds MDM MDM MDM Narrative Medical decision making narrative: Patient presents with 9 days of URI symptoms. She concerned about pneumonia. Clinically she looks well. Did have some faint wheezing therefore I gave her DuoNeb aerosol which she states is markedly improved her symptoms. CBC with differential obtained showing a 5.5 with hemoglobin 14 and platelet count of 236. Chemistries unremarkable. Troponin normal at 7. EKG obtained showed a sinus rhythm with a right bundle branch block 1 view chest x-ray obtained interpreted by myself as no evidence of infiltrate or acute disease process. At this point she will be discharged to home with a prescription for prednisone and an albuterol MDI. Patient advised to follow-up with her primary care physician within next 3 to 5 days. Lab Data Attestation: I reviewed the patient's lab results. Labs: Laboratory Results - last 24 hr 11/24/23 14:32 WBC 5.5 RBC 4.86 Hgb 14.4 Hct 43.6 MCV 89.7 MCH 29.6 MCHC 33.0 RDW Std Deviation 43.9 RDW Coeff of Leo 13.3 Plt Count 236 MPV 10.1 Immature Gran % (Auto) 0.200 Neut % (Auto) 51.1 Lymph % (Auto) 41.1 H Garrard % (Auto) 6.4 Eos % (Auto) 0.6 Baso % (Auto) 0.6 Absolute Neuts (auto) 2.8 Absolute Lymphs (auto) 2.24 Nucleated RBC % 0 Sodium 141 Potassium 3.7 Chloride 110 H Carbon Dioxide 25.0 Anion Gap 6 BUN 12 Creatinine 0.71 Estim Creat Clear Calc 48.45 Est GFR (MDRD) Af Amer 105 Est GFR (MDRD) Non-Af 87 BUN/Creatinine Ratio 16.9 Glucose 100 Calcium 9.4 Troponin I High Sens 7 Radiography Chest X-Ray - ED: 1 View Diagnostic Testing: Clinical Impression(s) from Imaging Studies Chest X-Ray 11/24/23 14:45 IMPRESSION: No radiographic evidence of acute cardiopulmonary disease. Electronically Signed: Elizabeth Burris MD at 15:04 EST Reading Location ID and State: [facility] / [place] Tel , Service support , 1 view chest x-ray obtained interpreted by myself as no evidence of infiltrate or pneumothorax or acute disease process. Official report from radiology pending. EKG Initial EKG: Attestation: I personally reviewed and interpreted this EKG as follows: Comments: Sinus rhythm with rate of 75 bpm with right bundle branch block and left anterior fascicular block Discharge Plan Triage Chief Complaint: Cold Sx ED Provider: Evelyn Chau Dx/Rx/DC Orders Clinical Impression: Bronchitis, asthmatic Instructions: ED Bronchitis with Wheezing (Adult) Prescriptions: New prednisone 20 mg tablet 20 mg PO BID Qty: 10 0RF No Action celecoxib 100 mg capsule 100 mg PO Q24H Patient Comments: pt reports she takes bid metformin 1,000 MG tablet 1,000 mg PO BID Patient Comments: BLOOD SUGAR atorvastatin 20 MG tablet 80 mg PO QHS hydrocodone-acetaminophen 5-325 mg tablet 1 tab PO Q6H PRN PRN (Reason: Pain) 3 Days Qty: 12 0RF glipizide PO DAILY pioglitazone 30 mg tablet 30 mg PO DAILY tizanidine 4 mg tablet 4 mg PO Q12H levothyroxine 150 mcg tablet 150 mcg PO DAILY gabapentin 600 mg tablet 600 mg PO Q8H Trulicity 1.5 mg/0.5 mL pen injector 1.5 mg subcut QWEEK lisinopril 20 mg tablet 20 mg PO DAILY Qty: 30 2RF Primary Care Provider: Danette Levine NP Referrals: Danette Levine NP, [employer] COMPENSATION ANALYST-C [Primary Care Provider] - 3-5 Days Disposition Disposition: Home, Self Care Discharge Date/Time: 11/24/23 15:18
[2023-11-24] MEDS: Ipratropium/Albuterol Sulfate 3 ML AMPUL.NEB INHALATION (14:22)
[2023-11-24 14:23] VITALS: PULSE 85; RESP 18
[2023-11-24 14:38] LABS: Absolute Lymphocyte Count 2.24 X10^3/uL (0.83-4.51); Absolute Neutrophil Count 2.8 X10^3/uL (2.0-7.7); Basophil# 0.03 X10^3/uL; Basophil% 0.6 % (0-1); Eosinophil# 0.03 X10^3/uL; Eosinophils% 0.6 % (0-5); Hematocrit 43.6 % (37-47); Hemoglobin 14.4 g/dL (12.0-15.0); Lymphocyte # 2.24 X10^3/ul (0.83-4.51); Lymphocyte % 41.1 % (19-41); Mean Corpuscular Hgb 29.6 pg (27.0-32.0); Mean Corpuscular Volume 89.7 fL (81-99); Mean Platelet Vol. 10.1 fl (6.2-12.0); Monocyte# 0.35 X10^3/uL; Monocyte% 6.4 % (0-10); NRBC Flagged by Analyzer 0 % (0-5); Neutrophil # 2.79 X10^3/uL (2.7-7.7); Neutrophil % 51.1 % (47-70); Platelet Count 236 K/mm3 (150-450); RBC Distribution Width CV 13.3 % (11.6-14.6); RBC Distribution Width SD 43.9 fl (35.1-43.9); Red Blood Count 4.86 M/mm3 (4.2-5.4); White Blood Count 5.5 K/mm3 (4.4-11.0)
[2023-11-24] MEDS: 0.9% Normal Saline (1000mL) 1,000 ML 1000 ML IV (14:38)
--- NOTE | 2023-11-24 14:45 | RAD_ITS ---
INDICATION: dyspnea EXAMINATION/TECHNIQUE: X-RAY - XR Chest 1 View COMPARISON: September 11, 2023 FINDINGS: LINES/DEVICES: None. LUNGS: No consolidation, edema or effusion. No pneumothorax. MEDIASTINUM AND CARDIOVASCULAR STRUCTURES: Cardiac silhouette not enlarged. Central airways and mediastinal contour are unremarkable. BONES AND SOFT TISSUES: Unremarkable. RAD/Chest 1 View (Portable) IMPRESSION: No radiographic evidence of acute cardiopulmonary disease. Electronically Signed: Elizabeth Burris MD at 15:04 EST ,
[2023-11-24 14:56] LABS: Anion Gap 6 (5-15); BUN 12 mg/dL (7-18); BUN/Creat Ratio 16.9 RATIO (10-20); Calcium,Total 9.4 mg/dL (8.5-10.1); Chloride 110 mmol/L (98-107); Creatinine, Serum 0.71 mg/dL (0.55-1.02); EST Glomerular Filtration Rate 87 mL/min (>60); Est Glom Filt Rate - Afr Amer 105 mL/min (>60); Estimated Creatinine Clearance 48.45 ml/min; Glucose 100 mg/dL (74-106); Potassium 3.7 mmol/L (3.5-5.1); Sodium Level 141 mmol/L (136-145); Troponin-I HS 7 pg/mL (3.0-54.0)
[2023-11-24] MEDS: predniSONE 20 MG Tablet 40 MG PO (15:11)
[2023-11-24] MEDS: Albuterol Sulfate 8 gm Inhaler (60 puffs) 2 PUFF INHALATION (15:12)
== END 2023-11-24 15:18 | disposition home or self-care (01) ==
PROVIDERS: Emergency Provider Emergency Medicine; PCP Nurse Practitioner Family; Visit Provider Emergency Medicine
DX: J45.909 Unspecified asthma, uncomplicated (principal); M06.9 Rheumatoid arthritis, unspecified; E11.9 Type 2 diabetes mellitus without complications; I10 Essential (primary) hypertension; E78.5 Hyperlipidemia, unspecified; Z79.84 Long term (current) use of oral hypoglycemic drugs; Z79.890 Hormone replacement therapy; Z79.899 Other long term (current) drug therapy; Z87.891 Personal history of nicotine dependence
CPT/HCPCS: 71045; 80048; 84484; 85025; 93005; 94640; 99282; J7030; A4216

== ENCOUNTER → 2024-05-03 | Outpatient (CLI) | payer MEDICARE, SELFPAY ==
[2024-05-03 10:31] LABS: Absolute Lymphocyte Count 1.82 X10^3/uL (0.83-4.51); Absolute Neutrophil Count 2.8 X10^3/uL (2.0-7.7); Basophil# 0.03 X10^3/uL; Basophil% 0.6 % (0-1); Eosinophil# 0.07 X10^3/uL; Eosinophils% 1.4 % (0-5); Hematocrit 39.9 % (37-47); Lymphocyte # 1.82 X10^3/ul (0.83-4.51); Lymphocyte % 35.9 % (19-41); Mean Corp Hgb Conc 32.6 g/dL (32-36); Mean Corpuscular Hgb 28.9 pg (27.0-32.0); Mean Corpuscular Volume 88.7 fL (81-99); Mean Platelet Vol. 10.2 fl (6.2-12.0); Monocyte# 0.38 X10^3/uL; Monocyte% 7.5 % (0-10); NRBC Flagged by Analyzer 0 % (0-5); Neutrophil # 2.75 X10^3/uL (2.7-7.7); Neutrophil % 54.2 % (47-70); Platelet Count 236 K/mm3 (150-450); RBC Distribution Width CV 13.4 % (11.6-14.6); RBC Distribution Width SD 43.8 fl (35.1-43.9); White Blood Count 5.1 K/mm3 (4.4-11.0)
[2024-05-03 11:15] LABS: Vitamin B12 270 pg/mL (211-911)
[2024-05-03 13:52] LABS: ALB/GLOB Ratio 1.2 RATIO (0.9-2.4); AST(SGOT) 23 U/L (15-37); Alanine Aminotransfer ALT/SGPT 30 U/L (13-56); Albumin, Serum 3.9 g/dL (3.2-5.0); Alkaline Phosphatase 87 U/L (45-117); Anion Gap 8 (5-15); BUN 11 mg/dL (7-18); BUN/Creat Ratio 14.8 RATIO (10-20); Calcium,Total 9.4 mg/dL (8.5-10.1); Chloride 108 mmol/L (98-107); Cholesterol 216 mg/dL (200); Creatinine, Serum 0.74 mg/dL (0.55-1.02); EST Glomerular Filtration Rate 82 mL/min (>60); Est Glom Filt Rate - Afr Amer 99 mL/min (>60); Globulin 3.3 g/dL (2.2-4.2); Glucose 135 mg/dL (74-106); High Density Lipoprotein 69 mg/dL; Protein, Total 7.2 g/dL (6.4-8.2); Sodium Level 137 mmol/L (136-145); T4 Free Direct 1.17 ng/dL (0.76-1.46); Thyroid Stim Hormone (TSH) 0.39 uIU/mL (0.358-3.74); Triglycerides 174 mg/dL; Very Low Density Lipoprotein 35 mg/dL (5-40)
[2024-05-07 12:09] LABS: Vitamin D 1,25-Dihydroxy 69.3 pg/mL (24.8-81.5)
[2024-05-07 19:20] LABS: Microalbumin,Random Urine 6.3 mg/L (NO RANGE EST.)
== END | disposition home or self-care (01) ==
PROVIDERS: PCP Nurse Practitioner Family; Referring Provider Nurse Practitioner Family; Visit Provider Nurse Practitioner Family
DX: E78.5 Hyperlipidemia, unspecified (principal); E11.42 Type 2 diabetes mellitus with diabetic polyneuropathy; I10 Essential (primary) hypertension; E03.9 Hypothyroidism, unspecified; E56.9 Vitamin deficiency, unspecified
CPT/HCPCS: 36415; 80053; 80061; 82043; 82607; 82652; 84439; 84443; 85025

== ENCOUNTER 2024-08-28 13:18 | Emergency (ER) | payer MEDICARE, SELFPAY ==
[2024-08-28 13:19] VITALS: BP 132/75; PULSE 75; RESP 17; TEMP 36.4; O2SAT 96; BMI 32.4
[2024-08-28 17:19] VITALS: BP 128/77; PULSE 76; RESP 18; O2SAT 98
--- NOTE | 2024-08-28 18:41 | RAD_ITS ---
INDICATION: leg pain EXAMINATION/TECHNIQUE: X-RAY - RIGHT XR Tibia/Fibula 2 Views 2 VIEWS COMPARISON: No relevant prior comparison study available FINDINGS: BONES: No fracture demonstrated. JOINTS: No dislocation. SOFT TISSUES: Unremarkable. RAD/Tibia & Fibula 2 Views IMPRESSION: No evidence of fracture. Electronically Signed: Amanda Quintana MD at 20:34 EDT ,
--- NOTE | 2024-08-28 18:42 | EX.ED.DYSGE1 ---
HPI <MILLY Mendoza - Last Filed: 08/28/24 20:34> History of Present Illness Chief Complaint: Lower Extremity Injury Narrative Narrative: Patient is a 60-year-old female with history of hypertension hyperlipidemia diabetes, anxiety presents to the emerged Apt. 2 weeks of worsening pain to the right knee. Patient denies any specific injury. Patient [place] any recent travel, history of blood clots in legs or lungs. Patient states that the right knee keeps giving out, she trying to use a knee support however it is not helping. She states that it was swollen however it has gone down. Most of the pain is on the outer part of the knee. Worsening pain with turning and flexing. Denies any history of surgery to the knee. PFS <MILLY Mendoza - Last Filed: 08/28/24 20:34> [facility] Medical History Anxiety and depression Arthritis Asthma Chronic neck and back pain Diabetes Difficulty balancing when standing Hay fever HTN (hypertension) Hyperlipemia Rheumatoid arthritis Thyroid disease Type 2 diabetes mellitus Home Medications ?Medication ?Instructions ?Recorded ?Last Taken ?Type metformin 1,000 mg tablet 1,000 mg PO BID 02/26/16 10/03/20 History atorvastatin 20 mg tablet 80 mg PO QHS 09/28/20 10/03/20 History celecoxib 100 mg capsule 100 mg PO Q24H 01/27/23 Unknown History gabapentin 600 mg tablet 600 mg PO Q8H 07/17/23 Unknown History glipizide PO DAILY Diabetes 07/17/23 10/01/23 History levothyroxine 150 mcg tablet 150 mcg PO DAILY 07/17/23 Unknown History pioglitazone 30 mg tablet 30 mg PO DAILY 07/17/23 Unknown History tizanidine 4 mg tablet 4 mg PO Q12H 07/17/23 Unknown History dulaglutide 1.5 mg/0.5 mL 1.5 mg subcut QWEEK 09/11/23 Unknown History subcutaneous pen injector (Trulicity) hydrocodone-acetaminophen 5-325mg 1 tab PO Q6H PRN PRN Pain 3 days 09/30/23 Unknown Rx 5mg-325mg #12 TABLETS lisinopril 20 mg tablet 20 mg PO DAILY #30 tabs 10/03/23 Unknown Rx prednisone 20 mg tablet 20 mg PO BID #10 tabs 11/24/23 Unknown Rx Allergy/AdvReac Type Severity Reaction Status Date / Time venom-honey bee Allergy Severe Anaphylaxis Verified 08/28/24 13:19 adhesive tape Allergy Mild Rash Verified 08/28/24 13:19 Family History Daughter Asthma Father Cancer Arthritis Mother Heart disease Arthritis Surgical History History of History of throat surgery Hx of dilation and curettage Hx of tonsillectomy Social History household members: spouse housing: house Smoking Status: Former smoker second hand exposure: No alcohol intake: current alcohol intake frequency: holidays/special occasions only substance use type: does not use caffeine: Yes what type of physical activity do you participate in: none frequency: does not exercise do you feel safe at home: Yes ROS <MILLY Mendoza - Last Filed: 08/28/24 20:34> ROS ED ROS Narrative Constitutional: Negative for fever, chills, weight loss, weakness Eyes: Negative for vision loss, vision change, double vision ENT: Negative for any sore throat, ear pain, congestion Cardiovascular: Negative for any chest pain, tightness, palpitations Respiratory: Negative for any cough, sputum production, hemoptysis, dyspnea, dyspnea on exertion, orthopnea Gastrointestinal: Negative for any abdominal pain, nausea, vomiting, diarrhea, constipation, blood in stool, blood in vomit : Negative for any urinary frequency, dysuria, retention, blood in urine Muscle skeletal: Negative for any neck pain, back pain. Pain to the right knee Neurological: Negative for any headache, syncope, dizziness Skin: Negative for any rashes, itching, abrasions, lacerations Psychiatric: Negative for any depression, anxiety, stress, suicidal ideation, homicidal ideation Hematologic: Negative for any excessive bruising, easy bleeding EXAM <MILLY Mendoza - Last Filed: 08/28/24 20:34> Physical Exam Narrative Exam Narrative: Vital signs reviewed. Extremities: No peripheral edema, no signs of gross trauma or deformity. Active full range of motion of all extremities. Patient has no signs or symptoms of ecchymosis. There is no edema. Patient has no specific calf pain. Patient has worsening knee pain when abducting. Negative Brandon's sign. There is no signs of septic joint. Intact extensor mechanism. Neuro: Cranial nerves II through XII intact, no focal neurological deficits. Skin: Clean dry and intact with no rash, purpura, petechiae, vesicles or pustules. Backs/flank: No CVA tenderness, no midline spinal tenderness, no deformity. Psych: Normal mood and affect. No SI, HI or acute psychosis. Const Vital Signs: 08/28/24 13:19 08/28/24 17:19 Temperature 97.5 F L Temperature Source Temporal Pulse Rate 75 76 Respiratory Rate 17 18 Blood Pressure 132/75 H 128/77 H Blood Pressure Mean 94 94 Pulse Ox 96 98 Oxygen Delivery Method Room Air <Dr. Rasheed Lai DO - Last Filed: 08/29/24 13:03> Physical Exam Const Vital Signs: 08/28/24 13:19 08/28/24 17:19 Temperature 97.5 F L Temperature Source Temporal Pulse Rate 75 76 Respiratory Rate 17 18 Blood Pressure 132/75 H 128/77 H Blood Pressure Mean 94 94 Pulse Ox 96 98 Oxygen Delivery Method Room Air MDM <MILLY Mendoza - Last Filed: 08/28/24 20:34> MDM Radiography Diagnostic Testing: Clinical Impression(s) from Imaging Studies Tibia/Fibula X-Ray 08/28/24 18:41 IMPRESSION: No evidence of fracture. Electronically Signed: Amanda Quintana MD at 20:34 EDT Reading Location ID and State: [facility] / [place] Tel , Service support , Knee X-Ray 08/28/24 19:28 IMPRESSION: No evidence of fracture. Mild degenerative changes. Electronically Signed: Amanda Quintana MD at 20:33 EDT , Treatment and Re-Evaluation :: Differential diagnosis includes however is not limited to: Knee arthritis, knee joint effusion, DVT, internal derangement, knee sprain, Patient appears generally well, vital signs are stable, patient is nontoxic-appearing. Presenting to the emergency department with complaints of pain to the right knee that is been ongoing for the last 2 weeks. Patient denies any specific injury. Patient has no swelling on examination, patient is intact extensor magnesium, no red flag signs. Low suspicion for any DVT. X-rays of the knee as well as the tibia-fibula will be obtained. All radiologic examinations were read, reviewed by the emergency department attending. From these reads, a plan of care will be put in place. Patient x-rays of the right knee, right tibia-fibula were negative for any acute osseous abnormality. Patient was given an Iron wrap bandage. Patient will be given an outpatient order for a venous duplex of the right lower extremity tomorrow. Patient will be given an orthopedic referral. She is happy the plan of care, she will continue to take naproxen, and follow-up outpatient. All questions answered, stable for discharge. <Dr. Rasheed Lai, DO - Last Filed: 08/29/24 13:03> MDM Radiography Diagnostic Testing: Clinical Impression(s) from Imaging Studies Tibia/Fibula X-Ray 08/28/24 18:41 IMPRESSION: No evidence of fracture. Electronically Signed: Amanda Quintana MD at 20:34 EDT Reading Location ID and State: [facility] / [place] Tel , Service support , Knee X-Ray 08/28/24 19:28 IMPRESSION: No evidence of fracture. Mild degenerative changes. Electronically Signed: Amanda Quintana MD at 20:33 EDT , Treatment and Re-Evaluation :: Differential diagnosis includes however is not limited to: Knee arthritis, knee joint effusion, DVT, internal derangement, knee sprain, Patient appears generally well, vital signs are stable, patient is nontoxic-appearing. Presenting to the emergency department with complaints of pain to the right knee that is been ongoing for the last 2 weeks. Patient denies any specific injury. Patient has no swelling on examination, patient is intact extensor magnesium, no red flag signs. Low suspicion for any DVT. X-rays of the knee as well as the tibia-fibula will be obtained. All radiologic examinations were read, reviewed by the emergency department attending. From these reads, a plan of care will be put in place. Patient x-rays of the right knee, right tibia-fibula were negative for any acute osseous abnormality. Patient was given an Iron wrap bandage. Patient will be given an outpatient order for a venous duplex of the right lower extremity tomorrow. Patient will be given an orthopedic referral. She is happy the plan of care, she will continue to take naproxen, and follow-up outpatient. All questions answered, stable for discharge. Supervisory Physician Note Patient was seen and examined with the Advanced Practice Provider. Nursing notes and vital signs have been reviewed. Pertinent old records have been reviewed. I agree with the essential elements of the SPENSER's history, physical exam, assessment, and plan. The differential diagnosis and management options were discussed with the SPENSER. I participated in determining and agree with the management, procedures, final impression and disposition as documented. See changes noted by me. Please see addendum or separate note for any additional details. 68-year-old female presents for evaluation of right knee pain. Onset of pain approximately 2 weeks ago. Not improving. Patient has used a [id number] knee brace with little relief. She states the knee brace is too large and often falls down. Denies any specific injury or trauma that she knows. Movements that increase the pain are flexing and turning. Most of the pain is the lateral knee. Endorses some posterior knee pain. States she had some mild swelling to the medial knee but this improved. Denies a history of DVT/PE, blood clotting disorder, recent trauma or surgery, known malignancy, travel. Denies any numbness or tingling. I agree with the physical exam listed above. Right knee without any significant swelling. Patient is tender in the distribution of the lateral collateral ligament with palpation. No instability of the knee with ambulation or passive/active range of motion. No clicking or popping movement. Full range of motion of the knee without any significant pain. No signs of trauma or deformity. No signs of cellulitis or septic joint. Calves nontender to palpation. Compartments soft. DP/PT pulses plus 2 out of 4 bilaterally. Sensation intact. Differential diagnosis includes knee sprain, knee contusion, arthritis. Not a septic joint. Low suspicion for fracture and DVT. However given these concerns, x-ray of the knee as well as tib-fib obtained. Diagnostic: Interpreted by me/EM physician: X-ray of the knee as well as tib-fib without fracture or dislocation Suspect patient's pain is likely secondary to knee sprain. However given that I cannot fully rule out a DVT without ultrasound, which we do not have available at this time, patient will be given an outpatient order venous duplex of the right lower extremity. Will hold off on any anticoagulation given that I do have a low suspicion for this. Patient given referral to orthopedic physician. She was told to follow-up with orthopedic physician as well as PCP. She confirmed understanding. Patient is to continue taking her NSAID. Tylenol as needed. Patient stable to discharge home. Impression: 1. Right knee pain, suspect right knee sprain Discharge Plan Triage Chief Complaint: Lower Extremity Injury ED Midlevel Provider: Mumtaz Durham ED Provider: Rasheed Lai Dx/Rx/DC Orders Clinical Impression: Acute knee pain, Acute leg pain Instructions: ED Arthralgia, ED Knee Sprain Prescriptions: No Action celecoxib 100 mg capsule 100 mg PO Q24H Patient Comments: pt reports she takes bid metformin 1,000 MG tablet 1,000 mg PO BID Patient Comments: BLOOD SUGAR atorvastatin 20 MG tablet 80 mg PO QHS hydrocodone-acetaminophen 5-325 mg tablet 1 tab PO Q6H PRN PRN (Reason: Pain) 3 Days Qty: 12 0RF glipizide PO DAILY pioglitazone 30 mg tablet 30 mg PO DAILY tizanidine 4 mg tablet 4 mg PO Q12H levothyroxine 150 mcg tablet 150 mcg PO DAILY gabapentin 600 mg tablet 600 mg PO Q8H Trulicity 1.5 mg/0.5 mL pen injector 1.5 mg subcut QWEEK lisinopril 20 mg tablet 20 mg PO DAILY Qty: 30 2RF prednisone 20 mg tablet 20 mg PO BID Qty: 10 0RF Primary Care Provider: Danette Levine [facility] Referrals: Elian Ortiz DO [Med Staff - Active Staff] - Danette Levine Musa, AIRPORT GUIDE-C [Primary Care Provider] - Activity Restrictions/Additional Instructions: Your x-rays look negative. Continue take the anti-inflammatories as well as Tylenol. He will be given an Iron bandage. To ensure there is no blood clot to your right lower leg, I ordered you a venous duplex for tomorrow. Follow the instructions. Follow-up with orthopedics as well which you are given a referral. Print Language: Salvadorean Disposition Disposition: Home, Self Care Discharge Date/Time: 08/28/24 20:52
--- NOTE | 2024-08-28 19:28 | RAD_ITS ---
INDICATION: knee pain EXAMINATION/TECHNIQUE: X-RAY - RIGHT XR Knee Complete 4 Views or More 4 VIEWS COMPARISON: No relevant prior comparison study available FINDINGS: BONES: No fracture demonstrated. Mild joint space narrowing most pronounced at the patellofemoral joint. JOINTS: No dislocation. SOFT TISSUES: Unremarkable. RAD/Knee 4 or More Views IMPRESSION: No evidence of fracture. Mild degenerative changes. Electronically Signed: Amanda Quintana MD at 20:33 EDT ,
== END 2024-08-28 20:52 | disposition home or self-care (01) ==
PROVIDERS: Emergency Provider Surgery; PCP Nurse Practitioner Family; Visit Provider Surgery
DX: M25.561 Pain in right knee (principal); M06.9 Rheumatoid arthritis, unspecified; E11.9 Type 2 diabetes mellitus without complications; F41.9 Anxiety disorder, unspecified; E78.5 Hyperlipidemia, unspecified; I10 Essential (primary) hypertension; Z79.84 Long term (current) use of oral hypoglycemic drugs; Z79.85 Long-term (current) use of injectable non-insulin antidiabetic drugs; Z79.890 Hormone replacement therapy; Z79.899 Other long term (current) drug therapy; Z87.891 Personal history of nicotine dependence
CPT/HCPCS: 73564; 73590; 99282

== ENCOUNTER → 2024-08-29 | Outpatient (CLI) | payer MEDICARE, SELFPAY ==
--- NOTE | 2024-08-29 11:43 | VDLE_ITS ---
Reason For Study: RLE Pain RIGHT LEFT GSV is normal. FV is compressible, spontaneous, phasic, CFV is compressible, spontaneous, phasic, competent and demonstrates normal competent and demonstrates normal augmentation. augmentation. FV is compressible, spontaneous, phasic, competent and demonstrates normal augmentation. POP V is compressible, spontaneous, phasic, competent and demonstrates normal augmentation. T/P Trunk is compressible. PTV is compressible. RT PerV is compressible. Procedure This is a venous duplex using B-mode, color flow and spectral Doppler. Exam performed in department. The exam was diagnostic. VL/Venous Duplex US, Unilateral Interpretation Summary Deep veins of the right lower extremity are patent and compressible segmentally . There is no evidence of right lower extremity deep vein thrombosis. Valvular competence maru ears intact within the proximal deep venous system on the right . The right great saphenous vein a ppears patent and compressible segmentally. The left femoral vein is patent and competent. Ordering Physician: Mumtaz Durham Referring Physician: Danette Levine Performed By: Kevin King RVT
== END | disposition home or self-care (01) ==
PROVIDERS: PCP Nurse Practitioner Family; Visit Provider Nurse Practitioner
DX: M79.604 Pain in right leg (principal)
CPT/HCPCS: 93971

== ENCOUNTER → 2024-08-31 | Outpatient (CLI) | payer MEDICARE, SELFPAY ==
[2024-08-31 12:44] LABS: Absolute Lymphocyte Count 1.83 X10^3/uL (0.83-4.51); Absolute Neutrophil Count 1.8 X10^3/uL (2.0-7.7); Basophil# 0.06 X10^3/uL; Basophil% 1.5 % (0-1); Eosinophil# 0.08 X10^3/uL; Hematocrit 41.3 % (37-47); Hemoglobin 13.7 g/dL (12.0-15.0); Lymphocyte # 1.83 X10^3/ul (0.83-4.51); Lymphocyte % 44.9 % (19-41); Mean Corp Hgb Conc 33.2 g/dL (32-36); Mean Corpuscular Hgb 29.1 pg (27.0-32.0); Mean Corpuscular Volume 87.7 fL (81-99); Mean Platelet Vol. 9.7 fl (6.2-12.0); Monocyte# 0.33 X10^3/uL; Monocyte% 8.1 % (0-10); NRBC Flagged by Analyzer 0 % (0-5); Neutrophil # 1.76 X10^3/uL (2.7-7.7); Platelet Count 240 K/mm3 (150-450); RBC Distribution Width CV 13.3 % (11.6-14.6); RBC Distribution Width SD 42.9 fl (35.1-43.9); Red Blood Count 4.71 M/mm3 (4.2-5.4); White Blood Count 4.1 K/mm3 (4.4-11.0)
[2024-08-31 12:57] LABS: Vitamin D,25 Hydroxy 27.8 ng/mL
[2024-08-31 13:41] LABS: ALB/GLOB Ratio 1.2 RATIO (0.9-2.4); AST(SGOT) 15 U/L (15-37); Alanine Aminotransfer ALT/SGPT 24 U/L (13-56); Alkaline Phosphatase 103 U/L (45-117); Anion Gap 8 (5-15); BUN 12 mg/dL (7-18); BUN/Creat Ratio 14.6 RATIO (10-20); Calcium,Total 9.9 mg/dL (8.5-10.1); Chloride 107 mmol/L (98-107); Cholesterol 205 mg/dL (200); Creatinine, Serum 0.82 mg/dL (0.55-1.02); EST Glomerular Filtration Rate 73 mL/min (>60); Est Glom Filt Rate - Afr Amer 89 mL/min (>60); Globulin 3.4 g/dL (2.2-4.2); Glucose 177 mg/dL (74-106); High Density Lipoprotein 62 mg/dL; Protein, Total 7.4 g/dL (6.4-8.2); Sodium Level 138 mmol/L (136-145); T4 Free Direct 1.28 ng/dL (0.76-1.46); Thyroid Stim Hormone (TSH) 0.562 uIU/mL (0.358-3.740); Triglycerides 185 mg/dL; Very Low Density Lipoprotein 37 mg/dL (5-40)
== END | disposition home or self-care (01) ==
LOC: VSLAB 11:44
PROVIDERS: PCP Nurse Practitioner Family; Visit Provider Nurse Practitioner Family
DX: E55.9 Vitamin D deficiency, unspecified (principal); E11.42 Type 2 diabetes mellitus with diabetic polyneuropathy; E03.9 Hypothyroidism, unspecified; E78.5 Hyperlipidemia, unspecified
CPT/HCPCS: 36415; 80053; 80061; 82306; 84439; 84443; 85025

== ENCOUNTER → 2025-04-12 | Outpatient (CLI) | payer MEDICARE, SELFPAY ==
[2025-04-12 16:53] LABS: Absolute Lymphocyte Count 2.07 X10^3/uL (0.83-4.51); Absolute Neutrophil Count 3.5 X10^3/uL (2.0-7.7); Basophil# 0.06 X10^3/uL; Eosinophil# 0.09 X10^3/uL; Eosinophils% 1.5 % (0-5); Hematocrit 43.9 % (37-47); Hemoglobin 14.8 g/dL (12.0-15.0); Lymphocyte # 2.07 X10^3/ul (0.83-4.51); Lymphocyte % 33.9 % (19-41); Mean Corp Hgb Conc 33.7 g/dL (32-36); Mean Platelet Vol. 10.2 fl (6.2-12.0); Monocyte% 6.6 % (0-10); NRBC Flagged by Analyzer 0 % (0-5); Neutrophil # 3.46 X10^3/uL (2.7-7.7); Neutrophil % 56.7 % (47-70); Platelet Count 259 K/mm3 (150-450); RBC Distribution Width CV 13.3 % (11.6-14.6); RBC Distribution Width SD 43.4 fl (35.1-43.9); Red Blood Count 4.93 M/mm3 (4.2-5.4); White Blood Count 6.1 K/mm3 (4.4-11.0)
[2025-04-12 17:26] LABS: ALB/GLOB Ratio 1.5 RATIO (0.9-2.4); AST(SGOT) 29 U/L (<=31); Alanine Aminotransfer ALT/SGPT 22 U/L (<=34); Albumin, Serum 4.7 g/dL (3.4-4.8); Alkaline Phosphatase 87 U/L (35-104); Anion Gap 15 (5-15); BUN 18 mg/dL (4-19); BUN/Creat Ratio 24.4 RATIO (10-20); Calcium,Total 10.3 mg/dL (7.6-11.0); Carbon Dioxide 19.9 mmol/L (21.0-32.0); Chloride 102 mmol/L (98-108); Cholesterol 267 mg/dL (<=200); Creatinine, Serum 0.72 mg/dL (0.70-1.20); EST Glomerular Filtration Rate 90 (>60); Globulin 3.1 g/dL (2.2-4.2); Glucose 169 mg/dL (70-99); High Density Lipoprotein 58 mg/dL; Low Density Lipoprotein Calc. 169 mg/dL; Potassium 4.2 mmol/L (3.3-5.1); Protein, Total 7.7 g/dL (5.9-8.4); Sodium Level 137 mmol/L (133-145); Total Bilirubin 0.66 mg/dL (0.00-1.30); Triglycerides 200 mg/dL; Very Low Density Lipoprotein 40 mg/dL (5-40); Vitamin B12 445 pg/mL (180-914); Vitamin D,25 Hydroxy 63.2 ng/mL (30-100)
== END | disposition home or self-care (01) ==
LOC: VSLAB 15:30
PROVIDERS: PCP Nurse Practitioner Family
DX: E11.42 Type 2 diabetes mellitus with diabetic polyneuropathy (principal); E03.9 Hypothyroidism, unspecified; E55.9 Vitamin D deficiency, unspecified; E78.5 Hyperlipidemia, unspecified
CPT/HCPCS: 36415; 80053; 80061; 82306; 82607; 84439; 84443; 85025

== ENCOUNTER → 2025-04-18 | Outpatient (CLI) | payer MEDICARE, SELFPAY ==
--- NOTE | 2025-04-18 13:15 | RAD_ITS ---
PROCEDURE: SHOULDER MIN 2 VIEWS 04/18/2025 REASON FOR EXAM: PAIN IN LEFT SHOULDER TECHNIQUE: Four views left shoulder COMPARISON: None available FINDINGS: No fracture or dislocation. Joint spaces appear within limits. No osseous lesion identified. Visualized left lung appears clear. RAD/Shoulder min 2 Views IMPRESSION: Study appears within limits. Reading Location: [id number]
== END | disposition home or self-care (01) ==
LOC: RAD 13:11
PROVIDERS: PCP Nurse Practitioner Family
DX: M25.512 Pain in left shoulder (principal)
CPT/HCPCS: 73030

== ENCOUNTER → 2025-05-23 | Outpatient (CLI) | payer MEDICARE, SELFPAY | END | disposition home or self-care (01) | LOC: VSLAB 12:01 | PROVIDERS: PCP Nurse Practitioner Family | DX: E03.9 Hypothyroidism, unspecified (principal) | CPT/HCPCS: 36415; 84439; 84443 ==

== ENCOUNTER → 2025-05-27 | Outpatient (CLI) | payer MEDICARE, SELFPAY ==
--- NOTE | 2025-05-27 13:07 | ECHOCS_ITS ---
Reason For Study Reason For Study: MITRAL VALVE PROLAPSE Procedure This was a 2D Doppler, Color Flow transthoracic echocardiogram. The study was technically difficult. Exam performed in department. Left Ventricle Normal LV size. Mild concentric left ventricular hypertrophy. The LV ejection fraction is 65 %. Stage 1 diastolic dysfunction. Right Ventricle Normal right ventricle. Atria The left and right atria are normal. Aneurysmal atrial septum. Bubble contrast study is negative for PFO/ASD. Mitral Valve No mitral valve prolapse noted. Mild mitral valve annular calcification. Trivial mitral regurgitation. Tricuspid Valve Trivial tricuspid valve insufficiency. Normal pulmonary artery pressure. Aortic Valve Trisinus/trileaflet aortic valve. Pulmonic Valve The pulmonic valve is not well visualized. Great Vessels Normal sized aortic root. Pericardium/Pleural No pericardial effusion. Medication 22 gauge I.V. with prn adaptor inserted into right arm. Diluted definity 2ml given slow IV push to enhance endocardial definition. Performed a rapid injection of agitated mix of 9 cc saline and 1cc air to assess for atrial septal defect. MMode/2D Measurements & Calculations LVIDd: 4.1 cm IVSd: 1.2 cm Ao root diam: 3.2 cm LVIDs: 2.2 cm LVPWd: 1.1 cm RVDd: 3.6 cm FS: 47.3 % LAV(MOD-bp): 27.5 ml LVAd ap4: 20.6 cm2 SV(MOD-sp4): 35.0 ml LAV(MOD-bp) Indexed: 13.8 ml/m2 LVLd ap4: 6.7 cm SI(MOD-sp4): 17.5 ml/m2 LAV(MOD-sp2): 27.2 ml EDV(MOD-sp4): 53.3 ml LAV(MOD-sp4): 27.6 ml EDV(sp4-el): 53.9 ml LVAs ap4: 10.9 cm2 LVLs ap4: 5.6 cm ESV(MOD-sp4): 18.2 ml ESV(sp4-el): 17.8 ml EF(MOD-sp4): 65.8 % EF(sp4-el): 66.9 % SV(sp4-el): 36.1 ml LA A4 area: 14.1 cm2 LA dimension(2D): 3.1 cm RA A4 area: 16.0 cm2 TAPSE: 1.9 cm Time Measurements MV dec time: 0.35 sec Doppler Measurements & Calculations MV E max ortiz: 70.3 cm/sec Lat Peak E' Ortiz: 11.9 cm/sec Med Peak E' Ortiz: 6.7 cm/sec MV A max ortiz: 105.5 cm/sec E/E' lat: 5.9 E/E' med: 10.5 MV E/A: 0.67 Ao V2 max: 185.0 cm/sec LV V1 max: 126.1 cm/sec PA V2 max: 109.8 cm/sec Ao max P.7 mmHg LV V1 max P.4 mmHg TR max ortiz: 246.0 cm/sec TR max P.2 mmHg ECHO/Echo Complete W/ Contrast Interpretation Summary Mild concentric left ventricular hypertrophy. The LV ejection fraction is 65 %. Stage 1 diastolic dysfunction. Aneurysmal atrial septum. Bubble contrast study is negative for PFO/ASD. No mitral valve prolapse noted. Mild mitral valve annular calcification. Trivia l mitral regurgitation. The study was technically difficult. Ordering Physician: Yuan Lay Referring Physician: DEBBIE GONSALVES Performed By: Nelli Villalba RDCS
== END | disposition home or self-care (01) ==
LOC: CVS 13:06
PROVIDERS: PCP Nurse Practitioner Family
DX: I34.1 Nonrheumatic mitral (valve) prolapse (principal)
CPT/HCPCS: 93306; Q9957; A4216; C8929

== ENCOUNTER → 2025-06-28 | Outpatient (CLI) | payer MEDICARE, SELFPAY ==
--- NOTE | 2025-06-28 16:09 | MRI_ITS ---
PROCEDURE: UPPER EXT JOINT ONLY(ROUTINE) 06/28/2025 REASON FOR EXAM: PAIN, EVAL CUFF TEAR TECHNIQUE: T1, T2, PD, UPPER EXT JOINT ONLY(left) multiplanar and multisequence images were obtained without IV contrast administration. COMPARISON: COMPARISON: April 18, 2025 x-ray FINDINGS: Bone Marrow: Subcortical cyst formation is noted in the superolateral humeral head. AC joint: There is moderate AC joint hypertrophy with a trace effusion. There is a type 3 acromion with impingement configuration. Rotator cuff: There is no muscular atrophy. There is moderate distal supraspinatus, infraspinatus, and subscapularis tendinopathy without full-thickness tear or retraction. The teres minor appears intact. Biceps tendon: The biceps tendon is present in the biceps tendon groove, with intact anchors. Labrum: There is no visible labral tear. There is thickening of the inferior glenohumeral ligament, which can indicate adhesive capsulitis. Effusion: There is no significant joint effusion. There is fluid in the subacromial subdeltoid bursa, with bursitis. Cartilage: There is mild chondromalacia at the glenohumeral articulation. MRI/Upper Ext Joint Only(Routine) IMPRESSION: There is moderate AC joint hypertrophy with a trace effusion. There is a type 3 acromion with impingement configuration. There is moderate distal supraspinatus, infraspinatus, and subscapularis tendin opathy without full-thickness tear or retraction. There is thickening of the inferior glenohumeral ligament, which can indicate a dhesive capsulitis. There is fluid in the subacromial subdeltoid bursa, with bursitis. There is mild chondromalacia at the glenohumeral articulation. Reading Location: [id number]
== END | disposition home or self-care (01) ==
LOC: MRI 16:04
PROVIDERS: PCP Nurse Practitioner Family; Referring Provider Orthopaedic Surgery Sports Medicine; Visit Provider Orthopaedic Surgery Sports Medicine
DX: M25.512 Pain in left shoulder (principal)
CPT/HCPCS: 73221

== ENCOUNTER → 2025-07-14 | Outpatient (CLI) | payer MEDICARE, SELFPAY ==
[2025-07-14 12:17] LABS: Hematocrit 38.7 % (37-47); Hemoglobin 13.4 g/dL (12.0-15.0); Immature Granulocytes Count 0.040 X10^3/uL (0.0-0.0); Mean Corp Hgb Conc 34.6 g/dL (32-36); Mean Corpuscular Volume 88.6 fL (81-99); Mean Platelet Vol. 9.8 fl (6.2-12.0); NRBC Flagged by Analyzer 0 % (0-5); Platelet Count 182 K/mm3 (150-450); RBC Distribution Width CV 13.4 % (11.6-14.6); RBC Distribution Width SD 43.8 fl (35.1-43.9); Red Blood Count 4.37 M/mm3 (4.2-5.4); White Blood Count 5.1 K/mm3 (4.4-11.0)
[2025-07-14 13:13] LABS: AST(SGOT) 19 U/L (<=31); Alanine Aminotransfer ALT/SGPT 22 U/L (<=34); Albumin, Serum 4.3 g/dL (3.4-4.8); Alkaline Phosphatase 71 U/L (35-104); Anion Gap 14 (5-15); BUN 19 mg/dL (4-19); BUN/Creat Ratio 22.0 RATIO (10-20); Calcium,Total 10.0 mg/dL (7.6-11.0); Carbon Dioxide 21.2 mmol/L (21.0-32.0); Chloride 103 mmol/L (98-108); Globulin 2.5 g/dL (2.2-4.2); Glucose 174 mg/dL (70-99); Potassium 4.3 mmol/L (3.3-5.1)
== END | disposition home or self-care (01) ==
LOC: VSLAB 11:55
PROVIDERS: PCP Nurse Practitioner Family
DX: E11.42 Type 2 diabetes mellitus with diabetic polyneuropathy (principal)
CPT/HCPCS: 36415; 80053; 84443; 85025

== ENCOUNTER → 2025-08-30 | Outpatient (CLI) | payer MEDICARE, SELFPAY ==
[2025-08-30 16:54] LABS: Hematocrit 42.1 % (37-47); Hemoglobin 14.2 g/dL (12.0-15.0); Immature Granulocytes Count 0.010 X10^3/uL (0.0-0.0); Mean Corp Hgb Conc 33.7 g/dL (32-36); Mean Corpuscular Volume 88.3 fL (81-99); Mean Platelet Vol. 10.1 fl (6.2-12.0); NRBC Flagged by Analyzer 0 % (0-5); Platelet Count 277 K/mm3 (150-450); RBC Distribution Width CV 13.3 % (11.6-14.6); RBC Distribution Width SD 43.1 fl (35.1-43.9); Red Blood Count 4.77 M/mm3 (4.2-5.4); White Blood Count 5.4 K/mm3 (4.4-11.0)
[2025-08-30 17:42] LABS: AST(SGOT) 23 U/L (<=31); Alanine Aminotransfer ALT/SGPT 16 U/L (<=34); Albumin, Serum 4.4 g/dL (3.4-4.8); Alkaline Phosphatase 52 U/L (35-104); Anion Gap 14 (5-15); BUN 15 mg/dL (4-19); BUN/Creat Ratio 18.8 RATIO (10-20); Calcium,Total 9.9 mg/dL (7.6-11.0); Carbon Dioxide 20.5 mmol/L (21.0-32.0); Chloride 104 mmol/L (98-108); Globulin 2.6 g/dL (2.2-4.2); Glucose 198 mg/dL (70-99); Potassium 3.6 mmol/L (3.3-5.1)
== END | disposition home or self-care (01) ==
LOC: VSLAB 12:10
PROVIDERS: PCP Nurse Practitioner Family
DX: E11.9 Type 2 diabetes mellitus without complications (principal); E03.9 Hypothyroidism, unspecified
CPT/HCPCS: 36415; 80053; 84443; 85025